=== PATIENT | female | born 1950 | race Caucasian/White ===

== ENCOUNTER → 2016-12-27 | Outpatient (CLI) | payer MEDICARE ==
[2014-07-11 09:09] VITALS: BP 95/48
[~2016-12-27] MED LIST: ASPI81TA2 PO; CLOP75TA PO; DOCU-27 PO; IPRA3AMP IH; LISI2.5T PO; MONT10TA9 PO; PROAIR HFA8.5 GM IH; SALM50DI IH; TIOT18CA IH
--- NOTE | 2016-12-27 14:09 | RAD ---
EXAM: Chest, 2 views. HISTORY: Shortness of breath. COMPARISON: 07/09/2014. FINDINGS: Frontal and lateral views of the chest are obtained. There is no infiltrate, effusion or pneumothorax. There is hyperinflation likely due to emphysema. There are few calcified granulomas. There are nodular opacities overlying the bilateral upper lobes. The heart is normal in size. IMPRESSION: 1. No acute pulmonary finding. 2. Hyperinflation suggesting emphysema. 3. Nodular opacities overlying the bilateral upper lobes, likely corresponding with opacities on the CT dated 11/06/2015. The nodular opacity within the left lower lobe on the prior CT is not well seen radiographically. CT follow-up may be performed to better assess for interval change.
== END | disposition home or self-care (01) ==
LOC: RAD 13:28
PROVIDERS: ATTEND Internal Medicine Critical Care Medicine
DX: R05 Cough (principal); R06.02 Shortness of breath; R06.2 Wheezing
CPT/HCPCS: 71020

== ENCOUNTER → 2017-02-17 | Outpatient (CLI) | payer BC ==
[2014-07-11 09:09] VITALS: BP 95/48
--- NOTE | 2017-02-17 15:09 | RAD ---
Examination: CT chest without contrast History: History of follow-up lung nodule Comparison: 11/06/2015. Technique: Axial CT images of the chest were performed without contrast. Coronal and sagittal reformats are performed PQRS Compliance Statement: One or more of the following individualized dose reduction techniques were utilized for this examination: 1. Automated exposure control 2. Adjustment of the mA and/or kV according to patient size 3. Use of iterative reconstruction technique Findings: The central airways are patent. The ascending aorta measures 3.6 cm in transverse dimension and 3.5 cm in AP dimension. Coronary artery calcifications identified. The heart size grossly appears unremarkable. No radiologically significant mediastinal lymphadenopathy identified. The previously visualized left apical nodule is again identified and appears somewhat less irregular compared to prior exam now measuring 9.3 mm compared to prior exam where it measured 1 cm. There is a small nodule identified in the right upper lobe of the lung measuring 4 mm slightly less prominent compared to prior exam. The left lower lobe pulmonary nodule measuring 1 cm is similar to prior exam. Small subpleural nodules identified in the right upper lobe measuring 3 mm similar to prior exam. Smaller 3 mm pulmonary nodule is identified in the right lobe, right lower lobe are similar to prior exam. No evidence of pleural effusion identified. Diffuse bilateral emphysematous changes identified in the lungs. There is a small new nodule identified in the left lower lobe lung measuring 3.5 mm, best visualized on series 2 image #32. The visualized noncontrasted liver, spleen, adrenals grossly appears unremarkable. The pancreas grossly appears unremarkable. Mild degenerative changes identified in the thoracic spine. Mild aortic atherosclerosis. Impression: 1. Bilateral lung nodules are mostly similar to prior exam except for a new small 3.5 mm nodule identified in the left lower lobe of the lung. Follow-up per Fleischner Society guidelines. 2. Emphysematous changes identified in the bilateral lungs.
== END | disposition home or self-care (01) ==
LOC: CT 11:45
PROVIDERS: ATTEND Internal Medicine Critical Care Medicine
DX: M47.894 Other spondylosis, thoracic region (principal); J43.8 Other emphysema; R91.1 Solitary pulmonary nodule; I70.0 Atherosclerosis of aorta
CPT/HCPCS: 71250

== ENCOUNTER → 2017-09-08 | Outpatient (CLI) | payer BC ==
[2017-07-13 15:00] VITALS: BP 133/74
[~2017-09-08] MED LIST changes: +ASPI-630 PO; -ASPI81TA2 PO; +BENZ-8 PO; +CONTRAST GIVEN MC PRN; +DOCU-109 PO; -DOCU-27 PO; +DOXY100C2 PO; +FAMO20TA5 PO; +FLUT100D IH; +GUAI600T47 PO; +IOHEXOL 300 MG/ML 100ML VIAL. IV ONE; +PRED-220 PO
--- NOTE | 2017-09-08 09:37 | RAD ---
Examination: CT angiogram of the chest. History: History of chest pain, shortness of breath Comparison: 02/17/2017 Technique: Axial CT angiographic images were performed with IV contrast. Coronal and sagittal 3-D MIP reformats are performed. PQRS Compliance Statement: One or more of the following individualized dose reduction techniques were utilized for this examination: 1. Automated exposure control 2. Adjustment of the mA and/or kV according to patient size 3. Use of iterative reconstruction technique acute Findings: The central airways are patent. Moderate aortic atherosclerosis. Moderate coronary artery calcifications. The heart size grossly appears unremarkable. There is no evidence of filling defect identified in the main pulmonary artery trunk and right and left main pulmonary arteries and the visualized lobar, segmental branches of the pulmonary arteries. A 1.6 cm right hilar lymph node is identified. There is a left apical nodule measuring 9.5 mm grossly similar to prior exam. A small nodule identified in the right upper lobe of lung measuring 4 mm is similar to prior exam. A left lower lobe pulmonary nodule measuring 1 cm is again noted. Small subpleural nodules identified in the right upper lobe and in the right lower lobe measuring 3 mm grossly similar to prior exam. Diffuse bilateral emphysematous is identified in the lungs. The visualized liver, spleen, adrenals grossly appears unremarkable. Impression: 1. No evidence of pulmonary embolus. 2. Bilateral pulmonary nodules grossly similar to prior exam. 3. Diffuse bilateral lung emphysematous changes. 4. Coronary artery calcifications.
== END | disposition home or self-care (01) ==
LOC: CT 08:16
PROVIDERS: ATTEND Internal Medicine Critical Care Medicine
DX: I25.10 Atherosclerotic heart disease of native coronary artery without angina pectoris (principal); J44.9 Chronic obstructive pulmonary disease, unspecified; I10 Essential (primary) hypertension; Z87.891 Personal history of nicotine dependence
CPT/HCPCS: 71275; Q9967

== ENCOUNTER 2017-10-13 18:14 | Inpatient (IN) | payer BC ==
[2017-10-13 18:53] LABS: ADD MAN DIFF? NO
[2017-10-13] MEDS: NITROGLYCERIN OINT 1 GM PACKET. TP (18:54)
[2017-10-13 18:56] LABS: BASO # 0.1 x10^3/uL (0.0-0.2); BASO % 1 % (0-3); EOS # 0.2 x10^3/uL (0.0-0.7); EOS % 2 % (0-3); LYMPH # 2.2 x10^3/uL (1.0-4.8); LYMPH % 20 % (24-48); MEAN CORPUSCULAR HEMOGLOBIN 31 pg (25-35); MEAN CORPUSCULAR HGB CONC 33 g/dL (31-37); MEAN CORPUSCULAR VOLUME 93 fL (79-100); MONO # 0.9 x10^3/uL (0.0-1.1); MONO % 8 % (0-9); NEUT # 7.5 x10^3uL (1.8-7.7); NEUT % 68 % (31-73); PLATELET COUNT 337 x10^3/uL (140-400); RED BLOOD COUNT 4.53 x10^6/uL (3.50-5.40)
[2017-10-13 19:06] LABS: ANION GAP 10 (6-14); BLOOD UREA NITROGEN 17 mg/dL (7-20); BUN/CREATININE RATIO 24 (6-20); CALCIUM 9.5 mg/dL (8.5-10.1); CARBON DIOXIDE 26 mmol/L (21-32); CHLORIDE 103 mmol/L (98-107); CREATININE 0.7 mg/dL (0.6-1.0); GLUCOSE 124 mg/dL (70-99); POTASSIUM 3.8 mmol/L (3.5-5.1); SODIUM 139 mmol/L (136-145)
[2017-10-13 19:11] LABS: ALBUMIN 3.6 g/dL (3.4-5.0); ALBUMIN/GLOBULIN RATIO 1.2 (1.0-1.7); ALK PHOS 113 U/L (46-116); ALT (SGPT) 14 U/L (14-59); AST (SGOT) 9 U/L (15-37); TOTAL BILIRUBIN 0.3 mg/dL (0.2-1.0); TOTAL PROTEIN 6.5 g/dL (6.4-8.2)
[2017-10-13 19:14] LABS: TROPONINI < 0.017 ng/mL (0.000-0.055)
[2017-10-13] MEDS ORDERED: MORPHINE SULFATE 2 MG/ML DISP.SYRIN. IV (19:30)
[2017-10-13] MEDS ORDERED: ONDANSETRON PF 4 MG/2 ML VIAL. IV (19:30)
[2017-10-13] MEDS: IV NORMAL SALINE 1000ML BAG 1,000 ML IV (19:38)
[2017-10-13] MEDS ORDERED: ALBUTEROL SULFATE 2.5 MG/3 ML NEBU. NEB (21:30)
[2017-10-13] MEDS: MONTELUKAST SODIUM 10 MG TABLET. PO (21:42)
[2017-10-13] MEDS: TEMAZEPAM 15 MG CAPSULE PO (21:42)
[2017-10-13] MEDS: LISINOPRIL 2.5 MG TABLET PO (21:42)
[2017-10-13] MEDS: IPRATRPIUM/ALBUTEROL 0.5/2.5MG 3 ML NEBU. IH (21:51)
[2017-10-13] MEDS: BUDESONIDE 0.5 MG/2 ML NEBU. NEB (21:51)
[2017-10-14 02:49] LABS: TROPONINI < 0.017 ng/mL (0.000-0.055)
[2017-10-14] MEDS: IPRATRPIUM/ALBUTEROL 0.5/2.5MG 3 ML NEBU. IH ×3 (07:21→19:49)
[2017-10-14] MEDS: BUDESONIDE 0.5 MG/2 ML NEBU. NEB ×2 (07:21→19:49)
[2017-10-14 08:54] LABS: TROPONINI < 0.017 ng/mL (0.000-0.055)
[2017-10-14] MEDS ORDERED: NON FORMULARY ITEM (Salmeterol Xinafoate (Serevent Diskus) 50 MCG) IH (09:00)
[2017-10-14] MEDS: ASPIRIN CHEWABLE 81 MG TABLET. PO (09:13)
[2017-10-14] MEDS: LISINOPRIL 2.5 MG TABLET PO (20:41)
[2017-10-14] MEDS: MONTELUKAST SODIUM 10 MG TABLET. PO (20:41)
[2017-10-14] MEDS: TEMAZEPAM 15 MG CAPSULE PO (20:41)
[2017-10-15] MEDS: BUDESONIDE 0.5 MG/2 ML NEBU. NEB ×2 (07:28→19:18)
[2017-10-15] MEDS: IPRATRPIUM/ALBUTEROL 0.5/2.5MG 3 ML NEBU. IH ×3 (07:28→19:18)
[2017-10-15] MEDS: ASPIRIN CHEWABLE 81 MG TABLET. PO (08:32)
[2017-10-15] MEDS: MONTELUKAST SODIUM 10 MG TABLET. PO (20:34)
[2017-10-15] MEDS: TEMAZEPAM 15 MG CAPSULE PO (20:34)
[2017-10-15] MEDS: LISINOPRIL 2.5 MG TABLET PO (20:34)
[2017-10-16 06:46] LABS: CHOLESTEROL 211 mg/dL (0-200); HDLC 54 mg/dL (40-60); LDLC 131 mg/dL (0-100); NON-HDL CHOLESTEROL 157 mg/dL (0-129); TRIGLYCERIDES 131 mg/dL (0-150); VLDLC 26 mg/dL (0-40)
[2017-10-16 06:48] LABS: CHOLESTEROL/HDL RATIO 3.9
[2017-10-16] MEDS: IPRATRPIUM/ALBUTEROL 0.5/2.5MG 3 ML NEBU. IH ×3 (07:51→19:14)
[2017-10-16] MEDS: BUDESONIDE 0.5 MG/2 ML NEBU. NEB ×2 (07:51→19:14)
[2017-10-16] MEDS: ASPIRIN CHEWABLE 81 MG TABLET. PO (07:59)
[2017-10-16] MEDS ORDERED: LIDOCAINE 2% 20 ML VIAL. (11:36)
[2017-10-16] MEDS ORDERED: fentaNYL PF VIAL 100 MCG/2 ML VIAL (11:58)
[2017-10-16] MEDS ORDERED: MIDAZOLAM HCL/PF 2 MG/2 ML VIAL. (11:59)
[2017-10-16] MEDS ORDERED: IODIXANOL 320 MG/ML 100 ML VIAL. (12:08)
[2017-10-16] MEDS: IODIXANOL 320 MG/ML 100 ML VIAL. IART (12:15)
[2017-10-16] MEDS: fentaNYL PF VIAL 100 MCG/2 ML VIAL IV (12:15)
[2017-10-16] MEDS: MIDAZOLAM HCL/PF 2 MG/2 ML VIAL. IV (12:44)
[2017-10-16] MEDS: LIDOCAINE 2% 20 ML VIAL. IJ (12:45)
[2017-10-16] MEDS ORDERED: ONDANSETRON PF 4 MG/2 ML VIAL. (13:09)
[2017-10-16] MEDS: ONDANSETRON PF 4 MG/2 ML VIAL. IV (13:17)
[2017-10-16] MEDS: HYDROcodone/APAP 5/325MG 1 TAB TABLET PO (19:06)
[2017-10-16] MEDS: TEMAZEPAM 15 MG CAPSULE PO (20:30)
[2017-10-16] MEDS: MONTELUKAST SODIUM 10 MG TABLET. PO (20:30)
[2017-10-16] MEDS: LISINOPRIL 2.5 MG TABLET PO (20:30)
[2017-10-17] MEDS: HYDROcodone/APAP 5/325MG 1 TAB TABLET PO ×2 (05:29→23:55)
[2017-10-17] MEDS: BUDESONIDE 0.5 MG/2 ML NEBU. NEB ×2 (07:57→20:13)
[2017-10-17] MEDS: IPRATRPIUM/ALBUTEROL 0.5/2.5MG 3 ML NEBU. IH ×3 (07:58→20:13)
[2017-10-17] MEDS ORDERED: CONTRAST GIVEN MC (08:00)
[2017-10-17] MEDS: IOHEXOL 300 MG/ML 100ML VIAL. IV (08:33)
[2017-10-17] MEDS: ASPIRIN CHEWABLE 81 MG TABLET. PO (08:43)
[2017-10-17] MEDS: TEMAZEPAM 15 MG CAPSULE PO (21:06)
[2017-10-17] MEDS: LISINOPRIL 2.5 MG TABLET PO (21:07)
[2017-10-17] MEDS: MONTELUKAST SODIUM 10 MG TABLET. PO (21:07)
[2017-10-18] MEDS: BUDESONIDE 0.5 MG/2 ML NEBU. NEB (07:26)
[2017-10-18] MEDS: IPRATRPIUM/ALBUTEROL 0.5/2.5MG 3 ML NEBU. IH ×2 (07:26→12:50)
[2017-10-18] MEDS: ASPIRIN CHEWABLE 81 MG TABLET. PO (08:25)
== END 2017-10-18 14:09 | disposition home or self-care (01) | DRG 286 ==
LOC: ER 18:14 → 2 NORTH 19:22
PROC: 4A023N7 Measurement of Cardiac Sampling and Pressure, Left Heart, Percutaneous Approach (ICD-10-PCS; principal; 2017-10-16)
PROC: B2111ZZ Fluoroscopy of Multiple Coronary Arteries using Low Osmolar Contrast (ICD-10-PCS; 2017-10-16)
PROC: B2151ZZ Fluoroscopy of Left Heart using Low Osmolar Contrast (ICD-10-PCS; 2017-10-16)
PROC: B4101ZZ Fluoroscopy of Abdominal Aorta using Low Osmolar Contrast (ICD-10-PCS; 2017-10-16)
DX: I25.119 Atherosclerotic heart disease of native coronary artery with unspecified angina pectoris (principal); I71.02 Dissection of abdominal aorta; K21.9 Gastro-esophageal reflux disease without esophagitis; J44.9 Chronic obstructive pulmonary disease, unspecified; F32.9 Major depressive disorder, single episode, unspecified; I10 Essential (primary) hypertension; I70.8 Atherosclerosis of other arteries; M54.9 Dorsalgia, unspecified; Z87.11 Personal history of peptic ulcer disease; M19.90 Unspecified osteoarthritis, unspecified site; Z90.710 Acquired absence of both cervix and uterus; Z82.49 Family history of ischemic heart disease and other diseases of the circulatory system; Z88.6 Allergy status to analgesic agent; I25.2 Old myocardial infarction; Z87.891 Personal history of nicotine dependence; Z95.5 Presence of coronary angioplasty implant and graft
CPT/HCPCS: 36415; 71045; 71250; 74174; 75625; 80053; 80061; 84484; 85025; 93005; 93458; 93880; 94640; 94760; 99151; 99153; 99285; 99285-25; C1769; C1892; J1644; J2250; J2405; J3010; J7030; J7620; J7626; Q9967

== ENCOUNTER → 2018-07-20 | Outpatient (CLI) | payer BC ==
[2017-10-18 11:00] VITALS: BP 98/55
[~2018-07-20] MED LIST changes: -CONTRAST GIVEN MC PRN; -IOHEXOL 300 MG/ML 100ML VIAL. IV ONE; -IPRA3AMP IH; +IPRA3AMP29 IH
--- NOTE | 2018-07-20 10:18 | RAD ---
CT of the chest without contrast compared to similar study dated October 18, 2017 for history of lung nodule. TECHNIQUE: Contiguous helical 5 mm axial images are obtained from the thoracic inlet to the base of the diaphragm. Sagittal and coronal reformations are evaluated. FINDINGS: Severe emphysematous changes are redemonstrated. There is calcified granuloma in the left upper lobe anteriorly. Several additional small pulmonary nodules or distributed throughout both lungs, the largest which is in the left upper lobe posteriorly seen best on axial image #13, measuring 9 mm in largest diameter. This nodule has somewhat indistinct margins but is unchanged from the prior study. There is a 4 mm nodule in the medial aspect of the left upper lobe seen on axial image #20 which is new as is a small 4 mm nodule seen in the anterior aspect of the left upper lobe on axial image #24. There is a 5 mm nodule in the superior segment of the left lower lobe on axial image #24 which is unchanged from prior study. A small 4 mm nodule seen on axial image #36 in the lateral aspect of the left lower lobe is also unchanged. 5 mm irregular nodule in the right upper lobe on axial image #17 is also stable, as is a 4 mm nodule peripherally on axial image 124, another on axial image #32, and another on axial image #33, and yet another smaller nodule on axial image #34. Within the right lower lobe, there are 3 mm nodules within the superior portion on axial images 36 and 37 which are stable, as well as image 52. No new nodules on the right. Central airways are patent. There is a morphologically normal-appearing precarinal lymph node measuring 1.5 x 0.7 cm which is unchanged. No suspicious mediastinal, hilar, or axillary lymphadenopathy is seen. Visualized upper abdominal organs are limited by lack of IV contrast, however no gross abnormal bodies are identified. Moderate diffuse atherosclerosis is present. This results in moderate to severe coronary atherosclerosis. No suspicious osteoblastic or osteolytic bone lesions are identified. IMPRESSION: 1. Multiple small bilateral pulmonary nodules, all of which are stable. There are 2 small 4 mm nodules seen in the left upper lobe, one on axial image #20 and one on axial image #24 which were not seen on the prior study. These may be new, or perhaps are small enough they were not adequately resolved on the prior study. Continued attention to these nodules on follow-up imaging is recommended. 2. Extensive bilateral emphysema. 3. Moderate to severe artery calcifications. Electronically signed by: Carroll Oates MD (07/20/2018 10:15 AM) [facility]
== END | disposition home or self-care (01) ==
LOC: CT 08:32
PROVIDERS: ATTEND Internal Medicine Critical Care Medicine
DX: J43.8 Other emphysema (principal); I25.10 Atherosclerotic heart disease of native coronary artery without angina pectoris; J84.10 Pulmonary fibrosis, unspecified; R91.8 Other nonspecific abnormal finding of lung field
CPT/HCPCS: 71250

== ENCOUNTER → 2019-01-07 | Outpatient (CLI) | payer BC ==
[2017-10-18 11:00] VITALS: BP 98/55
[~2019-01-07] MED LIST changes: +ALBU2.5V8 IH; +AMOX1TAB58 PO; +BUDE180A IH; +GUAI-108 PO; +GUAI120L35 PO; +OXYC1TAB15 PO; -PROAIR HFA8.5 GM IH
--- NOTE | 2019-01-07 13:24 | RAD ---
CT CHEST WO CONTRAST Indication: Lung nodule, asthma, smoker, COPD Technique: Noncontrast CT imaging was performed of the chest, multiplanar reconstruction images submitted. One or more of the following individualized dose reduction techniques were utilized for this examination: 1. Automated exposure control 2. Adjustment of the mA and/or kV according to patient size 3. Use of iterative reconstruction technique. Comparison: Exams dating back to as November 06 2015, most recent exam 07/20/2018 Findings: There is again severe emphysema bilaterally. There is new focus of somewhat nodular appearing density of the lingula about 1.7 cm transverse although this could be component of atelectasis or more focal infiltrate, best seen axial image 37 series 2. There are other bilateral pulmonary nodules. One of the dominant left upper lobe nodules near the apex axial image 10 about 0.88 cm is unchanged. Other similar nodules include superior left lower lobe nodule about 0.4 cm axial images 22, 0.3 cm image 33 left lower lobe, 0.2 cm left lower lobe nodule axial image 39, 0.4 cm right upper lobe nodule axial image 15, 0.4 cm right lower lobe nodule axial image 23, 0.2 cm right upper lobe axial image 23, 4 small right upper lobe nodules best seen sagittal images 94 and 95 with the largest about 0.4 cm. There is coronary calcification. There is large superior T11 Schmorl's node, present on more recent exam. There are a couple of small left renal calculi about 0.3 cm. IMPRESSION: 1. There is a new focus of somewhat nodular appearing density of the lingula although this could be due to atelectasis or more focal infiltrate for which short-term 3 month follow-up imaging is recommended. There are other small pulmonary nodules bilaterally as seen previously. 2. There is again severe emphysema. 3. There is coronary calcification. 4. There are a couple of small nonobstructive left renal calculi, kidneys not fully evaluated. Electronically signed by: Bentley Lawrence MD (01/07/2019 1:21 PM) [place] [id number]
== END | disposition home or self-care (01) ==
LOC: CT 15:51
PROVIDERS: ATTEND Internal Medicine Critical Care Medicine
DX: R91.8 Other nonspecific abnormal finding of lung field (principal); J43.9 Emphysema, unspecified; I25.10 Atherosclerotic heart disease of native coronary artery without angina pectoris; N20.0 Calculus of kidney
CPT/HCPCS: 71250

== ENCOUNTER → 2019-04-23 | Outpatient (CLI) | payer BC ==
[2019-03-11 08:35] VITALS: BP 178/68
[~2019-04-23] MED LIST changes: +CONTRAST GIVEN. MC PRN; +IOHEXOL 350 MG/ML 100 ML VIAL. IV ONE; +MONT10TA49 PO; -MONT10TA9 PO
[2019-04-23 09:44] LABS: CREATININE 0.8 mg/dL (0.6-1.0); GFR 70.9
--- NOTE | 2019-04-23 11:27 | RAD ---
Examination: CT ANGIOGRAPHY ABD AND PELVIS History: Abdominal aortic aneurysm and dissection Comparison/Correlation: 10/17/2017 CTA abdomen and pelvis Findings: Axial images of the abdomen and pelvis were obtained prior to and following IV contrast according to arteriography protocol. Sagittal and coronal reformatted images were provided. Volume rendered and MIP images provided. Visualized lung bases are clear. Emphysematous involvement of the lung bases. Minimal right costophrenic sulcus atelectasis suggested. Minimal lingular atelectasis. Right coronary arterial calcification noted. Small hiatal hernia. Liver, spleen, pancreas, adrenal glands, kidneys, and gallbladder fossa are unremarkable. Left adrenal gland nodularity is unchanged. Celiac arterial stenosis of less than 50% is evident. Superior mesenteric artery is patent with desiccation at its origin. Greater than 50% stenosis involving origin of the inferior mesenteric artery noted. There are 2 right main renal arteries with patent origins noted. There are 2 left main renal arteries with no significant stenosis suggested. Infrarenal abdominal aortic aneurysm is present measuring up to 3.2 cm longitudinal diameter of up to 3 cm transverse. Partial thrombosis of the aneurysm is noted. Calcific involvement of the abdominal aorta is noted. Dissection involving the very distal bifurcation right common iliac artery which extends into the very proximal right common iliac artery is present. Opacification of true and false lumens noted. Atheromatous calcific involvement of the iliac arteries Diverticulosis of the colon is present. No obstruction or extraluminal gas. No ascites or pelvic free fluid. No acute or suspicious bony process. Facet joint degenerative changes noted. Hysterectomy noted. Impression: Minimal distal common iliac artery dissection which extends into the very proximal right common iliac artery. No significant luminal narrowing. Decreased thrombosis of the right common iliac artery is notable in the interval. Previously described distal abdominal aortic aneurysm dissection is not currently seen. Previously described right costophrenic sulcus nodule is no longer evident. There is minimal residual atelectasis at this site. PQRS Compliance Statement: One or more of the following individualized dose reduction techniques were utilized for this examination: 1. Automated exposure control 2. Adjustment of the mA and/or kV according to patient size 3. Use of iterative reconstruction technique Electronically signed by: Bob Peacock MD (04/23/2019 11:24 AM) [id number]
--- NOTE | 2019-04-23 11:34 | RAD ---
MR#: [id number] Date of Study: 04/23/2019 Ordering Physician: TRUPTI TRIMBLE, Referring Physician: TRUPTI TRIMBLE, Tech: KIMMIE Salvador, RDMS, RVT APPROVED REPORT Patient Location: OUT-PATIENT Laterality:Bilateral Indications AORTIC DISSECTION, PVD, HTN, FORMER SMOKER, HX OF PR Doppler Spectral Velocity Analysis Right Left pCCA 65/11 cm/spCCA 67/15 cm/s mCCA 58/15 cm/smCCA 44/11 cm/s dCCA 74/20 cm/sdCCA 54/14 cm/s ECA 129/ cm/sECA 70/ cm/s pICA 73/22 cm/spICA 50/15 cm/s Yas 96/27 cm/smICA 83/24 cm/s dICA 129/26 cm/sdICA 73/23 cm/s Vert. 77/ cm/sVert. 62/ cm/s ICA/CCA 1.74ICA/CCA 1.24 Findings Mild to moderate bilateral diffuse plaque noted in the cord and vasculature. On the right side velocities are consistent with a moderate stenosis approximately 50-69% stenosis by velocity criteria in the distal internal carotid artery and the external carotid artery. Normal vertebral velocities bilaterally. No significant left-sided carotid occlusive disease is noted . Normal ICA to CCA ratios bilaterally. Critical Notification Critical Value: No <Conclusion> 1. Moderate right-sided disease by velocity criteria without any critical stenosis noted. Signed by : Trupti Trimble, Electronically Approved : 04/23/2019 11:34:10
--- NOTE | 2019-04-23 12:14 | CARD ---
MR#: [id number] Date of Study: 04/23/2019 Ordering Physician: TRUPTI TRIMBLE, Referring Physician: TRUPTI TRIMBLE, Tech: Ratna Baxter APPROVED REPORT EXAM: Two-dimensional and M-mode echocardiogram with Doppler and color Doppler. Other Information Quality : AverageHR: 52bpm INDICATION COPD CAD RISK FACTORS Hypertension 2D DIMENSIONS RVDd3.4 (2.9-3.5cm)Left Atrium(2D)2.9 (1.6-4.0cm) IVSd1.1 (0.7-1.1cm)Aortic Root(2D)3.1 (2.0-3.7cm) LVDd4.3 (3.9-5.9cm)LVOT Diameter2.2 (1.8-2.4cm) PWd1.0 (0.7-1.1cm)LVDs2.2 (2.5-4.0cm) FS (%) 47.9 %SV65.1 ml Aortic Valve AoV Peak Audi.136.8cm/sAoV VTI33.9cm AO Peak GR.7.5mmHgLVOT Peak Audi.119.6cm/s AO Mean GR.4mmHgAVA (VMAX)3.26cm2 Mitral Valve MV E Jsdxuefs77.9cm/sMV DECEL NVPD160lc MV A Prqoxrkk032.1cm/sE/A Ratio0.8 Pulmonary Valve PV Peak Lcpuekhd24.1cm/s Tricuspid Valve TR P. Oubbvtbs594ku/sRAP BRQPQBSW4qzRw TR Peak Gr.04xiMzUWMO15syHr Pulmonary Vein S1 Slvsoqwe24.6cm/sD2 Wuwfdzuf96.3cm/s PVa scebgzff65vytr LEFT VENTRICLE The left ventricle is normal size. There is borderline concentric left ventricular hypertrophy. The l eft ventricular systolic function is normal and the ejection fraction is within normal range. The Eje ction Fraction is 55-60%. There is normal LV segmental wall motion. Transmitral Doppler flow pattern is Grade I-abnormal relaxation pattern. RIGHT VENTRICLE The right ventricle is normal size. There is normal right ventricular wall thickness. The right ventr icular systolic function is normal. ATRIA The left atrium size is normal. The right atrium size is normal. The interatrial septum is intact wit h no evidence for an atrial septal defect or patent foramen ovale as noted on 2-D or Doppler imaging. AORTIC VALVE The aortic valve is normal in structure and function. Doppler and Color Flow revealed no significant aortic regurgitation. There is no significant aortic valvular stenosis. MITRAL VALVE The mitral valve is normal in structure and function. There is no evidence of mitral valve prolapse. There is no mitral valve stenosis. Doppler and Color Flow revealed no mitral valve regurgitation note d. TRICUSPID VALVE The tricuspid valve is normal in structure and function. Doppler and Color Flow revealed trace tricus pid valve regurgitation with an estimated PAP of 28 mmHg. There is no tricuspid valve stenosis. PULMONIC VALVE The pulmonic valve is not well visualized. Doppler and Color Flow revealed no pulmonic valvular regur gitation. GREAT VESSELS The aortic root is normal in size. The IVC is normal in size and collapses >50% with inspiration. PERICARDIAL EFFUSION There is no evidence of significant pericardial effusion. Critical Notification Critical Value: No <Conclusion> The left ventricle is normal size. The left ventricular systolic function is normal and the ejection fraction is within normal range. The Ejection Fraction is 55-60%. There is borderline concentric left ventricular hypertrophy. There is no significant aortic valvular stenosis. Doppler and Color Flow revealed no significant aortic regurgitation. Doppler and Color Flow revealed no mitral valve regurgitation noted. Doppler and Color Flow revealed trace tricuspid valve regurgitation with an estimated PAP of 28 mmHg. Signed by : Shaheed Terrazas MD Electronically Approved : 04/23/2019 12:14:13
== END | disposition home or self-care (01) ==
LOC: US 09:20
PROVIDERS: ATTEND Internal Medicine Cardiovascular Disease
DX: I77.72 Dissection of iliac artery (principal); I71.02 Dissection of abdominal aorta; J43.9 Emphysema, unspecified; J98.11 Atelectasis; K44.9 Diaphragmatic hernia without obstruction or gangrene; I77.4 Celiac artery compression syndrome; I25.10 Atherosclerotic heart disease of native coronary artery without angina pectoris; I71.4 Abdominal aortic aneurysm, without rupture; I70.8 Atherosclerosis of other arteries; K57.30 Diverticulosis of large intestine without perforation or abscess without bleeding; I65.23 Occlusion and stenosis of bilateral carotid arteries; I51.7 Cardiomegaly; Z90.710 Acquired absence of both cervix and uterus
CPT/HCPCS: 36415; 74174; 82565; 93306; 93880; Q9967

== ENCOUNTER → 2019-04-26 | Outpatient (CLI) | payer BC ==
[2019-03-11 08:35] VITALS: BP 178/68
[~2019-04-26] MED LIST changes: -CONTRAST GIVEN. MC PRN; -IOHEXOL 350 MG/ML 100 ML VIAL. IV ONE; +REGADENOSON 0.4 MG/5 ML DISP.SYRIN. IV ONE
--- NOTE | 2019-04-26 14:04 | RAD ---
MR#: [id number] Date of Study: 04/26/2019 Ordering Physician: TRUPTI TRIMBLE, Referring Physician: GERALD SOLITARIO Tech: HELEN Van APPROVED REPORT Test Type: Pharmacological Stress Nurse/Tech: Kaylin Jo R.N. Test Indications: CAD Cardiac History: Hypertension, CAD, stents, emphysema, smoked for 50 years Medications: See Electronic Medical Record Medical History: See Electronic Medical Record Resting ECG: s. nader Resting Heart Rate: 56 bpm Resting Blood Pressure: 124/60mmHg Pretest Chest Pain: No chest pain Nurse/Tech Notes S1S2. lung sounds diminished vaughn Consent: The procedure was explained to the patient in lay terms. Informed consent was witnessed. Robert eout was entered into [employer]. History and Stress Test performed by Kaylin Jo R.N. Pharm. Details Pharmacologic stress testing was performed using 0.4mg per 5ml of regadenoson given intravenously ove r 7-10 seconds. Stress Symptoms Dyspnea POST EXERCISE Reason for Termination: Infusion complete Target HR: 127 Max HR: 84 bpm Max Blood Pressure: 136/58mmHg Blood Pressure response to exercise: Normal blood pressure response during stress. Chest Pain: No. Arrhythmia: No. ST Change: No. INTERPRETATION Stress EKG Conclusion: The resting EKG showed a sinus rhythm with non specific ST T wave changes. The stress EKG showed no significant changes from baseline. No EKG evidence of stress induced ischemia. Imaging Protocol IMAGE PROTOCOL: Rest Tc-99m/stress Tc-99m 1 day Rest: Stress: Viability: Radiopharm.Tc99m BmtfpmfvgXk52d Sestamibi Zczc23vZg 32.5mCi Duration 15min. 10min. Img Date 04/26/2019 04/26/2019 Inj-Img Sgri56wns. 60min. Rest Admin Site:IV - Left WristAdministrator:HELEN Van Stress Admin Site: IV - Left WristAdministrator: Hernan Solorzano, (R)(N) STRESS DATA End Diast. Vol.54.0mlAv. Heart Rate67.0bpm End Syst. Vol.3.0mlCO Index BSA0.0L/min Myocardial Hwte531.0gEject. Andibjgh52.0% Stress Rates Pk. Fill Rate3.24EDV/secLVtime Pk. Fill 133.71msec Pk. Empty Rate4.85ESV/secLVtime Pk. Pmsqi275.37msec 1/3 Pk. Fill1.89EDV/sec Stress Scores Regional WT0.00Summed WT0.00 Regional WM0.00Summed WM0.00 LV Perfusion The stress scans have no significant defects. The rest images have no significant defects. Nuclear imaging shows no reversible ischemia or infarct. Wall Motion Normal LV systolic function with an ejection fraction of > 70%. LV Perf. Quant 17 Seg. SSS0.00 17 Seg. SRS0.00 17 Seg. SDS0.00 Stress Defect Extent (% LAD)0.00Rest Defect Extent (% LAD)0.00Rev. Defect Extent (% LAD)0.00 Stress Defect Extent (% LCX) 0.00Rest Defect Extent (% LCX)0.00Rev. Defect Extent (% LCX)0.00 Stress Defect Extent (% RCA)0.00Rest Defect Extent (% RCA)0.00Rev. Defect Extent (% RCA)0.00 Stress Defect Extent (% ZAC)0.00Rest Defect Extent (% ZAC)0.00Rev. Defect Extent (% ZAC)0.00 Conclusion 1. No EKG evidence of stress induced ischemia. 2. Nuclear imaging shows no reversible ischemia or infarct. 3. Normal LV systolic function with an EF of > 70%. 4. Low risk Lexiscan nuclear stress test. Signed by : Shaheed Terrazas MD Electronically Approved : 04/26/2019 14:04:09
== END | disposition home or self-care (01) ==
LOC: NM 09:19
PROVIDERS: ATTEND Internal Medicine Cardiovascular Disease
DX: I25.10 Atherosclerotic heart disease of native coronary artery without angina pectoris (principal); J43.9 Emphysema, unspecified; I10 Essential (primary) hypertension; Z87.891 Personal history of nicotine dependence
CPT/HCPCS: 78452; 93017; A9500; J2785

== ENCOUNTER → 2019-09-13 | Outpatient (CLI) | payer BC ==
[2019-03-11 08:35] VITALS: BP 178/68
[~2019-09-13] MED LIST changes: -REGADENOSON 0.4 MG/5 ML DISP.SYRIN. IV ONE
--- NOTE | 2019-09-14 08:28 | RAD ---
CT chest without contrast. HISTORY: Lung nodule CT scan of the chest was done without contrast. Comparison is made with a study from March 08. Thyroid is homogeneous. There is no mediastinal adenopathy or pleural effusion. Visualized portions the liver and spleen are unremarkable. Adrenal glands are normal. There are changes of chronic obstructive pulmonary disease. Linear atelectasis noted in the lateral right lower lobe on the prior study has resolved. The lingular infiltrate has improved with residual linear scarring or atelectasis. There is minimal basilar posterior linear atelectasis on today's study. There are calcified granulomas in the left lower lobe. There are calcified granulomas in the left apex. IMPRESSION: 1. COPD. 2. Calcified granulomas. 3. No new infiltrates. 4. Improved right lower lobe and lingular infiltrates since the prior study. 5. No new pulmonary nodules noted. PQRS Compliance Statement: One or more of the following individualized dose reduction techniques were utilized for this examination: 1. Automated exposure control 2. Adjustment of the mA and/or kV according to patient size 3. Use of iterative reconstruction technique Electronically signed by: Haja Sarmiento MD (09/14/2019 8:25 AM) [facility]
== END ==
LOC: CT 11:05
PROVIDERS: ATTEND Internal Medicine Critical Care Medicine
DX: J98.11 Atelectasis (principal); J44.9 Chronic obstructive pulmonary disease, unspecified; J84.10 Pulmonary fibrosis, unspecified; I10 Essential (primary) hypertension; Z87.891 Personal history of nicotine dependence
CPT/HCPCS: 71250

== ENCOUNTER → 2019-09-20 | Outpatient (CLI) | payer BC ==
[2019-03-11 08:35] VITALS: BP 178/68
--- NOTE | 2019-09-20 09:25 | RAD ---
CHEST PA LATERAL Clinical indications: Chest pain and shortness of air COMPARISON: March 08, 2019. Findings: Hyperinflation is seen consistent with COPD. Emphysema seen within both upper lobes. No new lung infiltrate or pleural effusion or pulmonary edema or lung mass or pneumothorax is seen. The heart size, pulmonary vasculature, mediastinum and both miriam are unremarkable. The osseous structures appear intact. Impression: COPD. No acute radiographic abnormality is seen. Electronically signed by: Jaycob Muñoz MD (09/20/2019 9:22 AM) [facility]
--- NOTE | 2019-09-20 15:01 | RAD ---
V/Q LUNG SCAN CLINICAL INDICATIONS: Chest pain and shortness of breath. COMPARISON: No previous V/Q lung scan. Chest x-ray performed today. TECHNIQUE: After inhalation of 17.0 mCi of Xenon 133 gas, anterior and posterior planar images of the lung avilez were performed in the single breath and equilibrium and washout phases. After IV infusion of 5.5 mCi of technetium 99m MAA, multiplanar images of both lung avilez were performed. FINDINGS: There is retention of radiotracer activity of both lung avilez which may be seen with COPD on the ventilation portion of the study. On the perfusion portion of the study, there is bibasilar nonsegmental perfusion defects. There is decreased perfusion within the upper lobes bilaterally. These findings match the ventilatory findings and correspond to the chest x-ray abnormality of bullous emphysema within both upper lobes. Therefore, the probability for pulmonary embolism is low. IMPRESSION: Low probability for pulmonary embolism. Electronically signed by: Jaycob Muñoz MD (09/20/2019 2:58 PM) [facility]
== END | disposition home or self-care (01) ==
LOC: NM 08:45
PROVIDERS: ATTEND Internal Medicine Critical Care Medicine
DX: J44.9 Chronic obstructive pulmonary disease, unspecified (principal); Z79.01 Long term (current) use of anticoagulants
CPT/HCPCS: 71046; 78582; 96374; A9540; A9558

== ENCOUNTER → 2020-02-14 | Outpatient (CLI) | payer BC ==
[2019-03-11 08:35] VITALS: BP 178/68
--- NOTE | 2020-02-14 13:05 | RAD ---
CT the chest without IV contrast compared to similar examination dated September 13, 2019 for lung nodule. TECHNIQUE: Contiguous helical 1 mm axial images are obtained from the thoracic inlet to the base of diaphragm. Sagittal and coronal reformations are evaluated. FINDINGS: Multiple densely calcified granulomas are redemonstrated. A left upper lung on series #3 axial image #52 there is redemonstration of an soft tissue nodule measuring 8 mm which is stable. There is a new spiculated lung nodule in the left upper lobe peripherally on series #3 axial image #82, measuring 9 mm and highly suspicious for malignancy. A second new nodule with indistinct borders is seen in the medial aspect left lower lobe measuring 5 mm in diameter, and this is equivocal for malignancy. There is a new linear pleural parenchymal opacity in the anterior aspect the right upper lobe which has a nodular component with spiculated margins seen best on series 3 axial image #97. This could represent scarring or atelectasis, however infection and neoplasm should the previously seen irregular nodular density in the peripheral aspect of the right upper lobe has enlarged from 7 mm to 15 mm, and also spiculated margins and may represent enlarging malignancy or progressive focal infection. This is seen on series #3 axial image #105 Also be considered. There are patchy infiltrates in the lingula peripherally as well as in the lower lobes bilaterally which are new, and may represent areas of infectious pneumonitis. Aortic and coronary artery calcifications are again noted. Heart size within normal limits. No suspicious adenopathy is identified. Central airways are grossly unremarkable. Emphysema is again noted. There are calcified gravel was in the spleen. No morphologic abnormalities the visualized upper abdominal organs are identified. Old compression deformity of T11 is again noted. No suspicious osteoblastic or osteolytic bone lesions. IMPRESSION: 1. Several concerning findings on axial series #3, with a new 9 mm spicula nodule in the left upper lobe on axial image #82, and enlarging irregular and spiculated nodule in the right anterior lobe on axial image #105, and a new linear density in the anterior right upper lobe with a spiculated nodular component. All 3 of these could potentially reflect new malignancy in this high risk patient, with nodules at #82 being particularly suspicious. 2. Patchy infiltrates in the lingula and bilateral lower lobes concerning for infectious pneumonitis. 3. Numerous stable calcified granulomas 4. Extensive COPD, stable. 5. Old compression of T7. 6. Other chronic changes as described. PQRS Compliance Statement: One or more of the following individualized dose reduction techniques were utilized for this examination: 1. Automated exposure control 2. Adjustment of the mA and/or kV according to patient size 3. Use of iterative reconstruction technique Electronically signed by: Carroll Oates MD (02/14/2020 1:02 PM) [id number]
== END ==
LOC: CT 11:07
PROVIDERS: ATTEND Internal Medicine Critical Care Medicine
DX: R91.1 Solitary pulmonary nodule (principal); J43.9 Emphysema, unspecified
CPT/HCPCS: 71250

== ENCOUNTER → 2020-09-11 | Outpatient (CLI) | payer BC ==
[2019-03-11 08:35] VITALS: BP 178/68
--- NOTE | 2020-09-11 17:54 | RAD ---
INDICATION: Reason: LUNG NODULE / Spl. Instructions: / History: . COMPARISON: February 14, 2020 TECHNIQUE: Axial CT images obtained through the chest without contrast. One or more of the following individualized dose reduction techniques were utilized for this examinat ion: 1. Automated exposure control; 2. Adjustment of the mA and/or kV according to patient size; 3 . Use of iterative reconstruction technique. FINDINGS: Repeat demonstration of severe bilateral emphysematous changes to the lungs. On the prior examination there are multiple pulmonary nodules identified. This includes: Left upper lung nodule which appears mildly spiculated and appears similar to prior measuring approxi mately 7 mm, image 83. Right lung nodule anteriorly on image 116 which appears slightly decreased from prior exam measuring approximately 9 mm and previously measured up to about 10 mm. The region of nodular infiltrate within the right lung on the prior exam. Slightly decreased from sugey or with some areas of nodularity persisting but decreased linear component. There are some calcified granulomas seen. Within the right upper lung posteriorly there is a nodular opacity seen on the current exam which george ears more prominent than on prior measuring up to about 6 mm and the nodular component within adjacen t linear component. Ground glass opacity within the right middle lobe appears slightly increased from prior. There is regions of bronchiectasis. Mild opacity at the left lung base is again seen dependently and could be from atelectasis. Severe calcific atherosclerosis including of the coronary arteries. Degenerative changes throughout the spine. Splenic calcified granulomas. Scattered mildly prominent lymph nodes within the mediastinum. Ascending thoracic aorta measures up to about 38 mm. There is some mild compression deformities within the spine including L1, T11. Patchy osseous deminer alization. IMPRESSION: * Multiple bilateral pulmonary nodules are again seen with some of these appearing similar to prior one appearing more prominent and others slightly decreased. Continued follow-up could be obtained to ensure no growth given that infectious or inflammatory nodules as well as neoplastic causes remain wi thin the differential. * Severe emphysematous changes. * Degenerative changes throughout the spine as well as a couple of compression fractures including a t L1 which appears new when compared to prior CT from January 2020. Electronically signed by: Andrews Garcia MD (09/11/2020 5:52 PM) [id number]
== END ==
LOC: PETSC 08:59
PROVIDERS: ATTEND Internal Medicine Critical Care Medicine
DX: J43.8 Other emphysema (principal); J47.9 Bronchiectasis, uncomplicated; R91.1 Solitary pulmonary nodule; D73.89 Other diseases of spleen; M43.8X5 Other specified deforming dorsopathies, thoracolumbar region
CPT/HCPCS: 71250; 78815; A9552

== ENCOUNTER 2021-01-28 03:37 | Inpatient (IN) | payer BC ==
[~2021-01-28] VITALS: Ht 160 cm; Wt 66.6 kg
[~2021-01-28 03:37] MED LIST changes: -FLUT100D IH; +FLUT100D2 IH; -SALM50DI IH; +SALM50DI2 IH
[2021-01-28] MEDS ORDERED: cefTRIAXone IV Push 1 GM VIAL. IVP ONE (04:00)
[2021-01-28] MEDS ORDERED: IPRATRPIUM/ALBUTEROL 0.5/2.5MG 3 ML NEBU. ONE ×2 (04:04→11:43)
[2021-01-28 04:06] LABS: ISTAT BE VENOUS 11 mmol/L (0-3); ISTAT HCO3 VEN 34 mmol/L (24-28); ISTAT PCO2 VEN 43 mmHg (41-51); ISTAT PO2 VEN 50 mmHg (20-40); ISTAT SAT O2 VEN 88 %; ISTAT TCO2 VEN 35 mmol/L (21-32)
[2021-01-28] MEDS ORDERED: MORPHINE SULFATE 10 MG/ML VIAL. IV ONE (04:15)
[2021-01-28] MEDS ORDERED: IPRATRPIUM/ALBUTEROL 0.5/2.5MG 3 ML NEBU. NEB ONE (04:15)
--- NOTE | 2021-01-28 04:25 | ED.ADGEN ---
Past Medical History Past Medical History: Asthma, COPD, Hypertension, [place], Other Additional Past Medical Histor: EMPHEMSEMA Past Surgical History: Hysterectomy, Other Additional Past Surgical Histo: CARDIAC STENT, R WRIST SX Smoking Status: Former Smoker Alcohol Use: None Drug Use: None General Adult EDM: Chief Complaint: SHORTNESS OF BREATH HPI: HPI: Patient is a 70-year-old female past medical history of COPD on 4 L of oxygen at baseline who presents to the emergency room complaining of shortness of breath. Patient states that over the last 3 weeks she has had increasing shortness of breath. She states that her stomach has become increasingly distended. She has had this previously and states that she has taken Lasix before which is helped. She denies any history of congestive heart failure. She states that her shortness of breath got significantly worse this evening so she came to the emergency room. She states that she has had a productive cough. She did not know she was having fevers until she arrived in the emergency room. She states that she is bringing up yellow phlegm. She has had both of her Covid vaccines. She denies any chest pain. She has a diffuse pressure-like pain in her abdomen that she states is common when her belly gets distended. Review of Systems: Review of Systems: Complete ROS is negative unless otherwise documented in HPI Current Medications: Current Medications Medications (Trade) Dose Ordered Sig/Kenan Start Time Stop Time Status Last Admin Dose Admin Albuterol/ Ipratropium (Duoneb) 3 ml 1X ONCE 01/28/21 04:15 01/28/21 04:16 DC 01/28/21 04:17 3 ML Ceftriaxone Sodium (Rocephin) 1 gm 1X ONCE 01/28/21 04:00 01/28/21 04:01 DC 01/28/21 04:27 1 GM Morphine Sulfate (Morphine Sulfate) 5 mg 1X ONCE 01/28/21 04:15 01/28/21 04:16 DC 01/28/21 04:28 5 MG Sodium Chloride 500 ml @ 500 mls/hr 1X ONCE 01/28/21 04:45 01/28/21 05:44 DC 01/28/21 05:37 500 MLS/HR Allergies: Allergies: Allergies Coded Allergies Type Severity Reaction Last Updated Verified NSAIDS (Non-Steroidal Anti-Inflamma Allergy Intermediate ITCH, RASH 07/09/14 Yes amoxicillin Adverse Reaction Intermediate nausea, vomiting 01/28/21 Yes erythromycin base Adverse Reaction Intermediate nausea, vomiting 01/28/21 Yes Physical Exam: PE: General: Awake, alert, NAD. Well Nourished, well hydrated. Cooperative HEENT: Atraumatic, EOMI, PERRL, airway patent, moist oral mucosa Neck: Supple, trachea midline Respiratory: Decreased breath sounds bilaterally with diffuse crackles and minimal wheezing, increased work of breathing, mild tachypnea CV: Mild tachycardia, normal rhythm, no murmur, cap refill <2 GI: Soft, mild distention, nontender, no masses MSK: No obvious deformities Skin: Warm, dry, intact Neuro: A&O x3, speech NL, sensory and motor grossly intact, no focal deficits Psych: Normal affect, normal mood, not suicidal or homicidal Current Patient Data: Labs: Laboratory Tests Test 01/28/21 03:03 01/28/21 03:55 POC Venous pH 7.50 (7.32-7.42) H POC Venous pCO2 43 mmHg (41-51) POC Venous pO2 50 mmHg (20-40) H Venous Blood HCO3 34 mmol/L (24-28) H POC Venous O2 Saturation (Olga Lidia) 88 % POC FiO2 21.0 White Blood Count 25.8 x10^3/uL (4.0-11.0) H Red Blood Count 4.70 x10^6/uL (3.50-5.40) Hemoglobin 14.1 g/dL (12.0-15.5) Hematocrit 42.2 % (36.0-47.0) Mean Corpuscular Volume 90 fL (79-100) Mean Corpuscular Hemoglobin 30 pg (25-35) Mean Corpuscular Hemoglobin Concent 34 g/dL (31-37) Red Cell Distribution Width 13.5 % (11.5-14.5) Platelet Count 334 x10^3/uL (140-400) Neutrophils (%) (Auto) 84 % (31-73) H Lymphocytes (%) (Auto) 9 % (24-48) L Monocytes (%) (Auto) 6 % (0-9) Eosinophils (%) (Auto) 0 % (0-3) Basophils (%) (Auto) 0 % (0-3) Neutrophils # (Auto) 21.7 x10^3/uL (1.8-7.7) H Lymphocytes # (Auto) 2.4 x10^3/uL (1.0-4.8) Monocytes # (Auto) 1.6 x10^3/uL (0.0-1.1) H Eosinophils # (Auto) 0.0 x10^3/uL (0.0-0.7) Basophils # (Auto) 0.1 x10^3/uL (0.0-0.2) Segmented Neutrophils % 73 % (35-66) H Band Neutrophils % 3 % (0-9) Lymphocytes % 16 % (24-48) L Monocytes % 7 % (0-10) Eosinophils % 1 % (0-5) Platelet Estimate Adequate (ADEQUATE) Sodium Level 136 mmol/L (136-145) Potassium Level 3.2 mmol/L (3.5-5.1) L Chloride Level 98 mmol/L (98-107) Carbon Dioxide Level 31 mmol/L (21-32) Anion Gap 7 (6-14) Blood Urea Nitrogen 26 mg/dL (7-20) H Creatinine 0.9 mg/dL (0.6-1.0) Estimated GFR (Cockcroft-Gault) 61.5 BUN/Creatinine Ratio 29 (6-20) H Glucose Level 114 mg/dL (70-99) H Lactic Acid Level 1.8 mmol/L (0.4-2.0) Calcium Level 9.6 mg/dL (8.5-10.1) Total Bilirubin 0.5 mg/dL (0.2-1.0) Aspartate Amino Transferase (AST) 18 U/L (15-37) Alanine Aminotransferase (ALT) 27 U/L (14-59) Alkaline Phosphatase 140 U/L (46-116) H Troponin I Quantitative < 0.017 ng/mL (0.000-0.055) ML-Prh-R-Type Natriuretic Peptide 198 pg/mL (0-124) H Total Protein 7.3 g/dL (6.4-8.2) Albumin 4.0 g/dL (3.4-5.0) Albumin/Globulin Ratio 1.2 (1.0-1.7) Triglycerides Level 87 mg/dL (0-150) Cholesterol Level 253 mg/dL (0-200) H LDL Cholesterol, Calculated 136 mg/dL (0-100) H VLDL Cholesterol, Calculated 17 mg/dL (0-40) Non-HDL Cholesterol Calculated 153 mg/dL (0-129) H HDL Cholesterol 100 mg/dL (40-60) H Cholesterol/HDL Ratio 2.5 Laboratory Tests 01/28/21 03:55 Laboratory Tests 01/28/21 03:55 Vital Signs: Vital Signs Date Time Temp Pulse Resp B/P (MAP) Pulse Ox O2 Delivery O2 Flow Rate FiO2 01/28/21 04:44 103 22 148/65 (92) 96 Nasal Cannula 4.0 01/28/21 03:40 100.9 100.9 EKG: EKG: [] Heart Score: C/O Chest Pain: N/A Risk Factors: Risk Factors: DM, Current or recent (<one month) smoker, HTN, HLP, family history of CAD, obesity. Risk Scores: Score 0 - 3: 2.5% MACE over next 6 weeks - Discharge Home Score 4 - 6: 20.3% MACE over next 6 weeks - Admit for Clinical Observation Score 7 - 10: 72.7% MACE over next 6 weeks - Early Invasive Strategies Radiology/Procedures: Radiology/Procedures: [] Course & Med Decision Making: Course & Med Decision Making Pertinent Labs and Imaging studies reviewed. (See chart for details) Patient is a 70-year-old female past medical history of COPD who presents to the emergency room complaining of increased work of breathing and shortness of breath. Patient is on her 4 L satting 96%. She does have mild increased work of breathing and does have diffuse crackles on exam. Patient is febrile. This is concerning for possible pneumonia. Blood cultures, chest x-ray, CBC, BMP, lactic were ordered. Patient was given Rocephin. She does have some mild distention in her abdomen which she feels is causing her shortness of breath. She states she typically takes Lasix for this. Troponin and BNP were added. Patient was given morphine for pain. She was given a DuoNeb for shortness of breath. XR shows enlarging nodule and CT ordered. Patient to be admitted. Teresoon Disclaimer: Sarabjit Disclaimer: This electronic medical record was generated, in whole or in part, using a voice recognition dictation system. Departure Departure Impression: Primary Impression: COPD exacerbation Additional Impression: Sepsis Disposition: ADMITTED INPATIENT Condition: STABLE Referrals: CARLA MANCIA DO (PCP) Problem Qualifiers CK RANDOLPH MD Jan 28, 2021 04:25
[2021-01-28 04:26] LABS: BASO # 0.1 x10^3/uL (0.0-0.2); BASO % 0 % (0-3); EOS % 0 % (0-3); HEMATOCRIT 42.2 % (36.0-47.0); HEMOGLOBIN 14.1 g/dL (12.0-15.5); LYMPH # 2.4 x10^3/uL (1.0-4.8); LYMPH % 9 % (24-48); MEAN CORPUSCULAR HEMOGLOBIN 30 pg (25-35); MEAN CORPUSCULAR HGB CONC 34 g/dL (31-37); MEAN CORPUSCULAR VOLUME 90 fL (79-100); MONO # 1.6 x10^3/uL (0.0-1.1); MONO % 6 % (0-9); NEUT # 21.7 x10^3/uL (1.8-7.7); NEUT % 84 % (31-73); PLATELET COUNT 334 x10^3/uL (140-400); RED CELL DISTRIBUTION WIDTH 13.5 % (11.5-14.5); WHITE BLOOD COUNT 25.8 x10^3/uL (4.0-11.0)
--- NOTE | 2021-01-28 04:29 | RAD ---
Single view chest dated 01/28/2021. Comparison made to 09/11/2020. CLINICAL INDICATION: Shortness of breath. FINDINGS: Single upright portable exam performed. Heart and mediastinal contours are stable. Vague nodular dens ity in the right upper lobe measures about 8 mm maximum dimension versus 5 mm previously. There are p rominent linear markings in the lower lobes, stable. Lungs are hyperinflated. No consolidation or ple ural effusion. No pneumothorax. IMPRESSION: 1. No acute radiographic abnormality. 2. Findings consistent with COPD. 3. There is suspected interval enlargement of a pulmonary nodule in the right upper lobe. Neoplastic processes not excluded. Follow-up CT to better evaluate. Electronically signed by: Ulysses Goyal MD (01/28/2021 4:26 AM) DINA
[2021-01-28 04:42] LABS: ALBUMIN/GLOBULIN RATIO 1.2 (1.0-1.7); CALCIUM 9.6 mg/dL (8.5-10.1); CREATININE 0.9 mg/dL (0.6-1.0); GFR 61.5; POTASSIUM 3.2 mmol/L (3.5-5.1); TOTAL BILIRUBIN 0.5 mg/dL (0.2-1.0); TOTAL PROTEIN 7.3 g/dL (6.4-8.2)
[2021-01-28] MEDS ORDERED: IV NORMAL SALINE 500ML BAG 500 ML IV ONE (04:45)
[2021-01-28 05:23] LABS: % BANDS 3 % (0-9); % EOS 1 % (0-5); % LYMPHS 16 % (24-48); % MONOS 7 % (0-10); % SEGS 73 % (35-66); PLT ESTIMATE ADEQUATE (ADEQUATE)
--- NOTE | 2021-01-28 05:48 | RAD ---
CT chest without contrast dated 01/28/2021. Comparison made to 09/11/2020. CLINICAL INDICATION: Evaluate lung nodule. TECHNIQUE: Contiguous axial imaging the chest performed without the administration of intravenous contrast. FINDINGS: There is a noncalcified pulmonary nodule in the anterior right upper lobe measures 1.4 cm maximum dim ension versus 0.7 cm previously (image 22). There are 3 additional nodules in the anterior right uppe r lobe on images 19, 20 and 21 that are unchanged, largest of which measures about 6 mm. Small noncal cified nodule in the right upper lobe on image 13 measures 3 mm, stable. There is a subpleural nodule in the right upper lobe posteriorly on image 19 that measures 3 mm, stable. On the left, there is a somewhat vague nodule in the left upper lobe on image 11 that measures about 7 mm, stable. Additional nodular density in the left upper lobe on image 16 measures about 7 mm, new from prior study. There is a nodule in the superior segment left lower lobe 20 measures 4 mm, unchang ed. Nodule in the anterior left upper lobe on image 29 measures about 5 mm, unchanged. Central airways are patent. Moderate emphysema. There is diffuse bronchial wall thickening with patch y and linear opacities in the bilateral lower lobes, right middle lobe and lingula. No pleural effusi on. Heart size within normal limits. No pericardial effusion. Coronary artery calcifications. There are b orderline enlarged precarinal and subcarinal lymph nodes measuring up to 10 mm short axis. No axillar y or hilar adenopathy. Thyroid gland is unremarkable. Images of the upper abdomen are unremarkable. No significant bony abnormality. Multilevel spondylosis . IMPRESSION: 1. There is an enlarging pulmonary nodule in the right upper lobe that now measures up to 1.4 cm vers us 0.7 cm previously. Findings are suspicious for malignancy. PET CT could better evaluate. 2. Multiple additional noncalcified pulmonary nodules, the majority of which are stable. There is a s omewhat vague nodule in the left upper lobe that is new. Continued follow-up imaging to ensure stabil ity. 3. Emphysema with bibasilar scarring is bronchial wall thickening. 4. Coronary artery calcifications and mild ectasia of the ascending thoracic aorta. 5. Borderline enlarged mediastinal lymph nodes, nonspecific Electronically signed by: Ulysses Goyal MD (01/28/2021 5:45 AM) [facility]
--- NOTE | 2021-01-28 07:50 | NUR ---
Arrived to unit by cart from ER. Alert and Oriented x's 4. O2 at 4l per n/c which wears at home at all times. Gets SOB on exertion. Barky cough non-productive. Noted hernia bulges outward on coughing. No c/o pain at this time. Oriented to room and controls. Side rails up x's 2 with call light in reach.
[2021-01-28 08:00] VITALS: BP 156/58
--- NOTE | 2021-01-28 10:01 | PDOC1 ---
History and Physical Date of Admission Date of Admission DATE: 01/28/21 TIME: 09:57 Source Source: Chart review, Patient History of Present Illness History of Present Illness Ms. Bustos is a 70-year-old female past medical history of COPD on 4 L of oxygen at home, She came to the ER for abd distention and pain, worsenign over 3 weeks. She feels bloated and has pain in the afternoon and evenings most days, across the upper part of her abdomen, from right to left. Not acute pain after eating, no change in gas or belching, no nausea or vomitnig or change in stools. She also noted increasing shortness of breath, with cough that has now become pr oductive in the past 2 days. She denies any history of congestive heart failure, but has prior cardiac stent. she is on 4 liters oxygen now and feels like she is breathing her normal way, she follows , She has had both of her Covid vaccines. Past Medical History Cardiovascular: CAD, HTN Pulmonary: COPD GI: GERD, Peptic Ulcer disease Psych: Depression Musculoskeletal: Osteoarthritis Renal/: No pertinent hx Endocrine: No pertinent hx Past Surgical History Past Surgical History: Hysterectomy Family History Family History: Hypertension Social History Smoke: No ALCOHOL: none Drugs: None Current Medications Current Medications Current Medications Ceftriaxone Sodium (Rocephin) 1 gm 1X ONCE IVP Last administered on 01/28/21at 04:27; Start 01/28/21 at 04:00; Stop 01/28/21 at 04:01; Status DC Albuterol/ Ipratropium (Duoneb) 3 ml STK-MED ONCE .ROUTE ; Start 01/28/21 at 04:04; Stop 01/28/21 at 04:05; Status DC Morphine Sulfate (Morphine Sulfate) 5 mg 1X ONCE IV Last administered on 01/28/21at 04:28; Start 01/28/21 at 04:15; Stop 01/28/21 at 04:16; Status DC Albuterol/ Ipratropium (Duoneb) 3 ml 1X ONCE NEB Last administered on 01/28/21at 04:17; Start 01/28/21 at 04:15; Stop 01/28/21 at 04:16; Status DC Sodium Chloride 500 ml @ 500 mls/hr 1X ONCE IV Last administered on 01/28/21at 05:37; Start 01/28/21 at 04:45; Stop 01/28/21 at 05:44; Status DC Active Scripts Active Codeine-Guaifen 10-100 mg/5 ml (Guaifenesin/Codeine Phosphate) 120 Ml Liquid 120 Ml PO TID PRN PRN 7 Days Augmentin 500-125 Tablet (Amoxicillin/Potassium Clav) 1 Each Tablet 1 Tab PO BID Pulmicort Flexhaler (Budesonide) 180 Mcg Aer.pow.ba 2 Puff IH BID Mucinex Dm Er 600-30 Mg Tablet (Guaifenesin/Dextromethorphan) 1 Each Tab.er.12h 1 Tab PO BID MDD 1 Percocet 5-325 Mg Tablet (Oxycodone/Acetaminophen) 1 Each Tablet 1 Tab PO TID MDD 1 Reported Flovent 100MCG Diskus (Fluticasone Propionate) 100 Mcg Disk.w.dev 1 Puff IH BID Serevent Diskus (Salmeterol Xinafoate) 50 Mcg Disk.w.dev 50 Mcg IH BID Duoneb 0.5-3(2.5) Mg/3 Ml (Albuterol/Ipratropium) 3 Ml Ampul.neb 3 Ml IH TID Aspirin 81 Mg Tab.chew 1 Tab PO DAILY Lisinopril 2.5 Mg Tablet 1 Tab PO HS Montelukast Sodium Tablet (Montelukast Sodium) 10 Mg Tablet 10 Mg PO HS Proair Hfa Inhaler (Albuterol Sulfate) 8.5 Gm Hfa.aer.ad 2 Puff IH PRN Q4-6HRS PRN Allergies Allergies: Coded Allergies: NSAIDS (Non-Steroidal Anti-Inflamma (Verified Allergy, Intermediate, ITCH, RASH, 07/09/14) amoxicillin (Verified Adverse Reaction, Intermediate, nausea, vomiting, 01/28/21) erythromycin base (Verified Adverse Reaction, Intermediate, nausea, vomiting, 01/28/21) ROS General: No: Chills, Night Sweats, Fatigue, Malaise, Appetite, Other PSYCHOLOGICAL ROS: No: Anxiety, Behavioral Disorder, Concentration difficultie, Decreased libido, Depression, Disorientation, Hallucinations, Hostility, Irritablity, Memory difficulties, Mood Swings, Obsessive thoughts, Physical abuse, Sexual abuse, Sleep disturbances, Suicidal ideation, Other Eyes: No Blurry vision, No Decreased vision, No Double vision, No Dry eyes, No Excessive tearing, No Eye Pain, No Itchy Eyes, No Loss of vision, No Photophobia, No Scotomata, No Uses contacts, No Uses glasses, No Other HEENT: No: Heacaches, Visual Changes, Hearing change, Nasal congestion, Nasal discharge, Oral lesions, Sinus pain, Sore Throat, Epistaxis, Sneezing, Snoring, Tinnitus, Vertigo, Vocal changes, Other Respiratory: YES: Cough, Shortness of breath, SOB with excertion, Sputum Changes; No: Hemoptysis, Orthopnea, Pleuritic Pain, Stridor, Tachypnea, Wheezing, Other Gastrointestinal: Yes Nausea, Yes Abdominal Pain (distention), Yes Other Genitourinary: No Dysuria, No Frequency, No Incontinence, No Hematuria, No Retention, No Discharge, No Urgency, No Pain, No Flank Pain, No Other, No , No , No , No , No , No , No Musculoskeletal: Yes Joint Stiffness Neurological: No Behavorial Changes, No Bowel/Bladder ControlChng, No Confusion , No Dizziness, No Gait Disturbance, No Headaches, No Impaired Coord/balance, No Memory Loss, No Numbness/Tingling, No Seizures, No Speech Problems, No Tremors, No Visual Changes, No Weakness, No Other Skin: No Dry Skin, No Eczema, No Hair Changes, No Lumps, No Mole Changes, No Mottling, No Nail Changes, No Pruritus, No Rash, No Skin Lesion Changes, No Other, No Acne Physical Exam General: Alert, Oriented X3, Cooperative, No acute distress HEENT: Atraumatic, PERRLA Lungs: Normal air movement Heart: S1S2, RRR, no murmurs Abdomen: Soft (distended, not tender, some bowel sounds, took awhile to arrive, but then steady, distant sounds, ) Extremities: No clubbing, No edema, Normal pulses Skin: No breakdown Neuro: Normal speech, Normal tone Psych/Mental Status: Mental status NL, Mood NL Vitals Vitals Vital Signs Date Time Temp Pulse Resp B/P (MAP) Pulse Ox O2 Delivery O2 Flow Rate FiO2 01/28/21 08:00 99.7 98 20 156/58 (90) 98 Nasal Cannula 9.0 99.7 Labs Labs Laboratory Tests Test 01/28/21 03:03 01/28/21 03:55 Bedside Venous pH 7.50 (7.32-7.42) Bedside Venous pCO2 43 mmHg (41-51) Bedside Venous pO2 50 mmHg (20-40) Venous Blood HCO3 34 mmol/L (24-28) POC Venous O2 Saturation (Olga Lidia) 88 % Bedside FiO2 21.0 White Blood Count 25.8 x10^3/uL (4.0-11.0) Red Blood Count 4.70 x10^6/uL (3.50-5.40) Hemoglobin 14.1 g/dL (12.0-15.5) Hematocrit 42.2 % (36.0-47.0) Mean Corpuscular Volume 90 fL (79-100) Mean Corpuscular Hemoglobin 30 pg (25-35) Mean Corpuscular Hemoglobin Concent 34 g/dL (31-37) Red Cell Distribution Width 13.5 % (11.5-14.5) Platelet Count 334 x10^3/uL (140-400) Neutrophils (%) (Auto) 84 % (31-73) Lymphocytes (%) (Auto) 9 % (24-48) Monocytes (%) (Auto) 6 % (0-9) Eosinophils (%) (Auto) 0 % (0-3) Basophils (%) (Auto) 0 % (0-3) Neutrophils # (Auto) 21.7 x10^3/uL (1.8-7.7) Lymphocytes # (Auto) 2.4 x10^3/uL (1.0-4.8) Monocytes # (Auto) 1.6 x10^3/uL (0.0-1.1) Eosinophils # (Auto) 0.0 x10^3/uL (0.0-0.7) Basophils # (Auto) 0.1 x10^3/uL (0.0-0.2) Segmented Neutrophils % 73 % (35-66) Band Neutrophils % 3 % (0-9) Lymphocytes % 16 % (24-48) Monocytes % 7 % (0-10) Eosinophils % 1 % (0-5) Platelet Estimate Adequate (ADEQUATE) Sodium Level 136 mmol/L (136-145) Potassium Level 3.2 mmol/L (3.5-5.1) Chloride Level 98 mmol/L (98-107) Carbon Dioxide Level 31 mmol/L (21-32) Anion Gap 7 (6-14) Blood Urea Nitrogen 26 mg/dL (7-20) Creatinine 0.9 mg/dL (0.6-1.0) Estimated GFR (Cockcroft-Gault) 61.5 BUN/Creatinine Ratio 29 (6-20) Glucose Level 114 mg/dL (70-99) Lactic Acid Level 1.8 mmol/L (0.4-2.0) Calcium Level 9.6 mg/dL (8.5-10.1) Total Bilirubin 0.5 mg/dL (0.2-1.0) Aspartate Amino Transf (AST/SGOT) 18 U/L (15-37) Alanine Aminotransferase (ALT/SGPT) 27 U/L (14-59) Alkaline Phosphatase 140 U/L (46-116) Troponin I Quantitative < 0.017 ng/mL (0.000-0.055) MW-Lde-Z-Type Natriuretic Peptide 198 pg/mL (0-124) Total Protein 7.3 g/dL (6.4-8.2) Albumin 4.0 g/dL (3.4-5.0) Albumin/Globulin Ratio 1.2 (1.0-1.7) Laboratory Tests Test 01/28/21 03:03 01/28/21 03:55 Bedside Venous pH 7.50 (7.32-7.42) Bedside Venous pCO2 43 mmHg (41-51) Bedside Venous pO2 50 mmHg (20-40) Venous Blood HCO3 34 mmol/L (24-28) POC Venous O2 Saturation (Olga Lidia) 88 % Bedside FiO2 21.0 White Blood Count 25.8 x10^3/uL (4.0-11.0) Red Blood Count 4.70 x10^6/uL (3.50-5.40) Hemoglobin 14.1 g/dL (12.0-15.5) Hematocrit 42.2 % (36.0-47.0) Mean Corpuscular Volume 90 fL (79-100) Mean Corpuscular Hemoglobin 30 pg (25-35) Mean Corpuscular Hemoglobin Concent 34 g/dL (31-37) Red Cell Distribution Width 13.5 % (11.5-14.5) Platelet Count 334 x10^3/uL (140-400) Neutrophils (%) (Auto) 84 % (31-73) Lymphocytes (%) (Auto) 9 % (24-48) Monocytes (%) (Auto) 6 % (0-9) Eosinophils (%) (Auto) 0 % (0-3) Basophils (%) (Auto) 0 % (0-3) Neutrophils # (Auto) 21.7 x10^3/uL (1.8-7.7) Lymphocytes # (Auto) 2.4 x10^3/uL (1.0-4.8) Monocytes # (Auto) 1.6 x10^3/uL (0.0-1.1) Eosinophils # (Auto) 0.0 x10^3/uL (0.0-0.7) Basophils # (Auto) 0.1 x10^3/uL (0.0-0.2) Segmented Neutrophils % 73 % (35-66) Band Neutrophils % 3 % (0-9) Lymphocytes % 16 % (24-48) Monocytes % 7 % (0-10) Eosinophils % 1 % (0-5) Platelet Estimate Adequate (ADEQUATE) Sodium Level 136 mmol/L (136-145) Potassium Level 3.2 mmol/L (3.5-5.1) Chloride Level 98 mmol/L (98-107) Carbon Dioxide Level 31 mmol/L (21-32) Anion Gap 7 (6-14) Blood Urea Nitrogen 26 mg/dL (7-20) Creatinine 0.9 mg/dL (0.6-1.0) Estimated GFR (Cockcroft-Gault) 61.5 BUN/Creatinine Ratio 29 (6-20) Glucose Level 114 mg/dL (70-99) Lactic Acid Level 1.8 mmol/L (0.4-2.0) Calcium Level 9.6 mg/dL (8.5-10.1) Total Bilirubin 0.5 mg/dL (0.2-1.0) Aspartate Amino Transf (AST/SGOT) 18 U/L (15-37) Alanine Aminotransferase (ALT/SGPT) 27 U/L (14-59) Alkaline Phosphatase 140 U/L (46-116) Troponin I Quantitative < 0.017 ng/mL (0.000-0.055) DU-Eih-F-Type Natriuretic Peptide 198 pg/mL (0-124) Total Protein 7.3 g/dL (6.4-8.2) Albumin 4.0 g/dL (3.4-5.0) Albumin/Globulin Ratio 1.2 (1.0-1.7) Images Images 1. There is an enlarging pulmonary nodule in the right upper lobe that now measures up to 1.4 cm versus 0.7 cm previously. Findings are suspicious for malignancy. PET CT could better evaluate. 2. Multiple additional noncalcified pulmonary nodules, the majority of which are stable. There is a somewhat vague nodule in the left upper lobe that is new. Continued follow-up imaging to ensure stability. 3. Emphysema with bibasilar scarring is bronchial wall thickening. 4. Coronary artery calcifications and mild ectasia of the ascending thoracic aorta. 5. Borderline enlarged mediastinal lymph nodes, nonspecific VTE Prophylaxis Ordered VTE Prophylaxis Devices: No VTE Pharmacological Prophylaxi: Yes Assessment/Plan Assessment/Plan shortness of breath, acute on chronic COPD with acute exacerbation, chronic hypercarbic and hypoxic respiratory failure SIRS, gievn abx, Rocephin, will start Doxy new abdominal distention, will check KUB, will consult GI, poss allergy or reactive colitis, CAD hx, prior stent, discussed with CV team, tele looks good, n Justifications for Admission Other Justification RONNY BARRERA MD Jan 28, 2021 10:01
[2021-01-28] MEDS ORDERED: POTASSIUM CHLORIDE 20 MEQ TABLET.ER. PO ONE (10:15)
--- NOTE | 2021-01-28 10:20 | PDOC2 ---
ISSA BLAND SPEECH PATHOLOGIST 01/28/21 1020: CARDIAC CONSULT DATE OF CONSULT Date of Consult DATE: 01/28/21 TIME: 10:01 REASON FOR CONSULT Reason for Consult: SOA, abd distention REFERRING PHYSICIAN Referring Physician: Wilberto SOURCE Source: Chart review HISTORY OF PRESENT ILLNESS HISTORY OF PRESENT ILLNESS This is a pleasant 70 yo female admitted for complains of shortness of breath. She has been having SOA in the last 2-3 weeks. She has COPD and uses O2 3-4 LPM at home and her O2 sats has been >90% consistently at home. In the last 1-2 weeks she has been more SOA. She has been wheezing and has been coughing more despite breathing treatments. finishing her augmentin and has 1 more day of prednisone left. She has CAD with stent to RCA in the past and denies any chest pain, nausea or vomiting. Denies any palpitations. She takes ASA and does not take any statin and could not remember if she still takes BP med. Denies any anosmia or ageusia and denies any recent covid-19 exposure. No fever or chils at home until as inpt she had some fever. No recent falls or injury and no prior hx of VTE. She has been having intractable coughing and has also been feeling some abdominal distention. Denies any diarrhea. Her abd discomfort has gotten better overnight. Denies any leg pain with ambulation. PAST MEDICAL HISTORY Cardiovascular: CAD, HTN, Hyperlipidemia, Other (chronic infrarenal aortic dissection, ectatic aorta 2.9cm, ectatic common iliac arteries and bilateral external iliac artery stenosis from atherosclerotic disease/dissection right >left) Pulmonary: COPD CENTRAL NERVOUS SYSTEM: Carpal Tunnel Syndrome GI: Constipation, GERD, Peptic Ulcer disease Heme/Onc: No pertinent hx Hepatobiliary: No pertinent hx Psych: No pertinent hx Musculoskeletal: Osteoarthritis Rheumatologic: No pertinent hx Infectious disease: No pertinent hx ENT: No pertinent hx Renal/: Urinary Incontinence Endocrine: No pertinent hx Dermatology: No pertinent hx PAST SURGICAL HISTORY Past Surgical History: Hysterectomy, Other (CTS release, PCI) FAMILY HISTORY Family History: Hypertension SOCIAL HISTORY Smoke: Quit ALCOHOL: none Drugs: None Lives: with Family CURRENT MEDICATIONS CURRENT MEDICATIONS Current Medications Medications (Trade) Dose Ordered Sig/Kenan Route PRN Reason Start Time Stop Time Status Last Admin Dose Admin Ceftriaxone Sodium (Rocephin) 1 gm 1X ONCE IVP 01/28/21 04:00 01/28/21 04:01 DC 01/28/21 04:27 Morphine Sulfate (Morphine Sulfate) 5 mg 1X ONCE IV 01/28/21 04:15 01/28/21 04:16 DC 01/28/21 04:28 Albuterol/ Ipratropium (Duoneb) 3 ml 1X ONCE NEB 01/28/21 04:15 01/28/21 04:16 DC 01/28/21 04:17 Sodium Chloride 500 ml @ 500 mls/hr 1X ONCE IV 01/28/21 04:45 01/28/21 05:44 DC 01/28/21 05:37 ALLERGIES ALLERGIES: Coded Allergies: NSAIDS (Non-Steroidal Anti-Inflamma (Verified Allergy, Intermediate, ITCH, RASH, 07/09/14) amoxicillin (Verified Adverse Reaction, Intermediate, nausea, vomiting, 01/28/21) erythromycin base (Verified Adverse Reaction, Intermediate, nausea, vomiting, 01/28/21) ROS Review of System 14 point ROS evaluated with pertinent positives noted per HPI PHYSICAL EXAM General: Alert, Oriented X3, Cooperative, mild distress HEENT: Atraumatic, Mucous membr. moist/pink Lungs: Other (diffuse wheeze) Heart: Regular rate (SR), Other (distant heart sounds) Abdomen: Soft, No tenderness Extremities: No cyanosis, No edema Skin: No breakdown, No significant lesion Neuro: Normal speech, Sensation intact Psych/Mental Status: Mental status NL, Mood NL MUSCULOSKELETAL: Osteoarthritic changes both hands VITALS/I&O VITALS/I&O: Vital Signs Date Time Temp Pulse Resp B/P (MAP) Pulse Ox O2 Delivery O2 Flow Rate FiO2 01/28/21 08:00 99.7 98 20 156/58 (90) 98 Nasal Cannula 9.0 99.7 LABS Lab: Laboratory Tests Test 01/28/21 03:03 01/28/21 03:55 POC Venous pH 7.50 (7.32-7.42) H POC Venous pCO2 43 mmHg (41-51) POC Venous pO2 50 mmHg (20-40) H Venous Blood HCO3 34 mmol/L (24-28) H POC Venous O2 Saturation (Olga Lidia) 88 % POC FiO2 21.0 White Blood Count 25.8 x10^3/uL (4.0-11.0) H Red Blood Count 4.70 x10^6/uL (3.50-5.40) Hemoglobin 14.1 g/dL (12.0-15.5) Hematocrit 42.2 % (36.0-47.0) Mean Corpuscular Volume 90 fL (79-100) Mean Corpuscular Hemoglobin 30 pg (25-35) Mean Corpuscular Hemoglobin Concent 34 g/dL (31-37) Red Cell Distribution Width 13.5 % (11.5-14.5) Platelet Count 334 x10^3/uL (140-400) Neutrophils (%) (Auto) 84 % (31-73) H Lymphocytes (%) (Auto) 9 % (24-48) L Monocytes (%) (Auto) 6 % (0-9) Eosinophils (%) (Auto) 0 % (0-3) Basophils (%) (Auto) 0 % (0-3) Neutrophils # (Auto) 21.7 x10^3/uL (1.8-7.7) H Lymphocytes # (Auto) 2.4 x10^3/uL (1.0-4.8) Monocytes # (Auto) 1.6 x10^3/uL (0.0-1.1) H Eosinophils # (Auto) 0.0 x10^3/uL (0.0-0.7) Basophils # (Auto) 0.1 x10^3/uL (0.0-0.2) Segmented Neutrophils % 73 % (35-66) H Band Neutrophils % 3 % (0-9) Lymphocytes % 16 % (24-48) L Monocytes % 7 % (0-10) Eosinophils % 1 % (0-5) Platelet Estimate Adequate (ADEQUATE) Sodium Level 136 mmol/L (136-145) Potassium Level 3.2 mmol/L (3.5-5.1) L Chloride Level 98 mmol/L (98-107) Carbon Dioxide Level 31 mmol/L (21-32) Anion Gap 7 (6-14) Blood Urea Nitrogen 26 mg/dL (7-20) H Creatinine 0.9 mg/dL (0.6-1.0) Estimated GFR (Cockcroft-Gault) 61.5 BUN/Creatinine Ratio 29 (6-20) H Glucose Level 114 mg/dL (70-99) H Lactic Acid Level 1.8 mmol/L (0.4-2.0) Calcium Level 9.6 mg/dL (8.5-10.1) Total Bilirubin 0.5 mg/dL (0.2-1.0) Aspartate Amino Transferase (AST) 18 U/L (15-37) Alanine Aminotransferase (ALT) 27 U/L (14-59) Alkaline Phosphatase 140 U/L (46-116) H Troponin I Quantitative < 0.017 ng/mL (0.000-0.055) FU-Upg-K-Type Natriuretic Peptide 198 pg/mL (0-124) H Total Protein 7.3 g/dL (6.4-8.2) Albumin 4.0 g/dL (3.4-5.0) Albumin/Globulin Ratio 1.2 (1.0-1.7) Laboratory Tests 01/28/21 03:55 Laboratory Tests 01/28/21 03:55 ECHOCARDIOGRAM ECHOCARDIOGRAM <Conclusion> The left ventricle is normal size. The left ventricular systolic function is normal and the ejection fraction is within normal range. The Ejection Fraction is 55-60%. There is borderline concentric left ventricular hypertrophy. There is no significant aortic valvular stenosis. Doppler and Color Flow revealed no significant aortic regurgitation. Doppler and Color Flow revealed no mitral valve regurgitation noted. Doppler and Color Flow revealed trace tricuspid valve regurgitation with an estimated PAP of 28 mmHg. DATE: 04/23/19 1214 STRESS TEST STRESS TEST Conclusion 1. No EKG evidence of stress induced ischemia. 2. Nuclear imaging shows no reversible ischemia or infarct. 3. Normal LV systolic function with an EF of > 70%. 4. Low risk Lexiscan nuclear stress test. DATE: 04/26/19 1404 HEART CATH HEART CATH Coronary Angiography The patient's coronary anatomy is right dominant. The left main coronary artery is a large size vessel free of disease. The left main bifurcates to the left anterior descending and circumflex. The left anterior descending artery is a medium size vessel with intimal irregularities and without significant stenosis. The first diagonal branch is a small size vessel free of disease. The second diagonal branch is a small size vessel free of disease. The third diagonal branch is a small size vessel free of disease. The circumflex artery is a medium size vessel free of disease. The first obtuse marginal branch is a small size vessel free of disease. The second obtuse marginal branch is a small size vessel free of disease. The right coronary artery is a large size vessel with stenosis distal to the stent of 30%, no instent restenosis. The right posterior descending artery is a medium size vessel free of disease. The right posterolateral branch is a small size vessel free of disease. Left Ventriculography The left ventricle is normal in size with normal contractility. The left ventricular ejection fraction is estimated to be 60%. The left ventricular end diastolic pressure is 11 mmHg. There was no gradient across the aortic valve upon pullback. Aorta The views of the distal abdominal aorta show what seems to be an aneurism at the bifurcation with possible dissection going to the R Iliac. Conclusion This pt does not have any significant CAD or restenosis of the stent in the RCA. Doubt her chest pain was angina. 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 Will get a CTA of the distal aorta to further evaluate the findings and then make further recommendations. DATE: 10/16/171808 ASSESSMENT/PLAN ASSESSMENT/PLAN 1. AECOPD: CT chest reveleased bilateral pulmonary nodules 2. Fever/leukocytosis: today is suppose to be her last day for prednisone 3. CAD: past stent, clinically stable 4. Abdominal distention: possibly from dyspepsia with intractable coughing and associated ventral hernia, much better today. No other GI s/s 5. HTN: controlled 6. Allergy to lisinopril: cough 7. Chronic infrarenal aortic dissection, ectatic aorta 2.9cm, ectatic common iliac arteries and bilateral external iliac artery stenosis from atherosclerotic disease/dissection right >left noted in 10/2017 8. HLP Recommendations 1. Consult pulmonary 2. No lisinopril, may start on losartan pending BP trend 3. Antibiotics per ID and pulmonary 4. Unable to place on BB due to wheezing. 5. Will start on statin 6. Continue ASA, replace K 7. Will need outpt follow up CT in regards to her PAD as noted above TRUPTI TRIMBLE MD 01/28/21 1513: CARDIAC CONSULT ASSESSMENT/PLAN ASSESSMENT/PLAN Patient seen and examined. Agree with above nurse practitioner note. No clear CV issues. Supportive care. Thanks ISSA BLAND APRN Jan 28, 2021 10:20 TRUPTI TIRMBLE MD Jan 28, 2021 15:13
[2021-01-28] MEDS ORDERED: DOXYCYCLINE HYCLATE 100 MG TABLET PO ONE (10:30)
--- NOTE | 2021-01-28 10:58 | EKG ---
[facility] [address] [place] [address] Test Date: 2021-01-28 Test Time: 10:57:04 Pat Name: MADONNA STILL Department: Room: 200 1 Gender: F Director Public Service: MAGGIE : 1950 Requested By: ISSA BLAND Order Number: [id number] Reading MD: Measurements Intervals [place] Rate: 81 P: -21 MI: 146 QRS: 6 QRSD: 70 T: 66 QT: 360 QTc: 424 Interpretive Statements SINUS RHYTHM NO SPECIFIC ECG ABNORMALITIES RI6.02 Compared to ECG 03/08/2019 04:47:41 T-wave abnormality no longer present ST (T wave) deviation no longer present
[2021-01-28 11:00] VITALS: BP 131/50
[2021-01-28 11:03] LABS: BILIRUBIN,URINE NEGATIVE (NEG); CLARITY,URINE CLEAR; COLOR,URINE YELLOW; NITRITE,URINE NEGATIVE (NEG); PH,URINE 5.5 (<5.0-8.0); PROTEIN,URINE NEGATIVE (NEG-TRACE); UROBILINOGEN,URINE 0.2 mg/dL (0.2 mg/dL)
[2021-01-28 11:12] LABS: BACTERIA,URINE FEW /HPF (0-FEW)
[2021-01-28 11:17] LABS: CHOLESTEROL/HDL RATIO 2.5
[2021-01-28] MEDS: guaiFENesin/CODEINE 100mg/10mg 5 ML LIQUID PO PRN ×2 (11:43→20:41)
[2021-01-28] MEDS: ASPIRIN CHEWABLE 81 MG TABLET. PO SCH (11:44)
[2021-01-28] MEDS: BUDESONIDE 0.5 MG/2 ML NEBU. NEB SCH ×2 (12:09→20:25)
[2021-01-28] MEDS: IPRATRPIUM/ALBUTEROL 0.5/2.5MG 3 ML NEBU. NEB SCH ×2 (12:09→20:24)
--- NOTE | 2021-01-28 12:21 | CONS ---
DATE OF CONSULTATION: 01/28/2021 PULMONARY CONSULTATION ATTENDING PHYSICIAN: Dr. Tenorio REASON FOR CONSULTATION: Dyspnea, abnormal CT chest with lung nodule. HISTORY OF PRESENT ILLNESS: The patient is a 70-year-old female who has a history of COPD. She is on home oxygen at 4 liters. She has been followed by me in the office for waxing and waning lung nodules. The patient had in the past a PET scan, which did not show any hypermetabolic activity in the lung nodules. Her blood tests also did not show any suspicion for malignancy. The patient was brought in to the hospital with complaint of abdominal bloating and pain. The patient was nauseous as well. The patient has started to have a cough, which has been productive of greenish sputum. She had a white cell count of 25.8. Her imaging study was performed including a CT of the chest, which was reviewed by me. The nodule in the right upper lobe measures 1.4 cm and previously was 0.7 cm. Three additional nodules in the anterior right upper lobe that is unchanged, largest of which measures about 6 mm. The patient also had a left upper lobe nodule, which is stable at 7 mm. Another nodule also at 7 mm, which is new from prior study. She has evidence of emphysema. Some nonspecific mediastinal lymph node enlargement. I have been asked to see her for further evaluation. PAST MEDICAL HISTORY: Significant for CAD, history of COPD, oxygen dependent with chronic hypoxic respiratory failure, history of GERD, osteoarthritis. PAST SURGICAL HISTORY: Hysterectomy. ALLERGIES: NONSTEROIDALS AMOXICILLIN AND ERYTHROMYCIN. MEDICATIONS: All reviewed as listed in the MRAD including Rocephin and DuoNeb and Pulmicort. REVIEW OF SYSTEMS: A 12-point system was obtained. Pertinent positives discussed in my present illness, otherwise noncontributory. All systems that were negative were reviewed as well. FAMILY HISTORY: Noncontributory to lungs. SOCIAL HISTORY: Smoked for 50 years before quitting. PHYSICAL EXAMINATION: VITAL SIGNS: Reviewed. She had a fever of 100.9. Pulse ox is 98% on 9 liters. Blood pressure stable. NECK: Supple. LUNGS: With few wheezes. HEART: Regular rhythm. ABDOMEN: Soft, nontender. EXTREMITIES: With no pitting edema. LABORATORY DATA: Reviewed. Sodium 136, potassium 3.2, BUN 26 and creatinine 0.9. ABGs with a pH of 7.5, pCO2 of 43 and a pO2 of 50 on room air. White cell count 25.8. ASSESSMENT AND PLAN: 1. Acute on chronic hypoxic respiratory failure secondary to acute exacerbation of chronic obstructive pulmonary disease and acute bronchitis. 2. Abnormal CT chest dated 01/28/2021 with increase in the size of the nodule of 1.4 cm compared to the previous 0.7 cm in the right upper lobe. This is the same nodule, which was 15 mm in size in 01/2020. PET scan in the past had not shown any hypermetabolic activity. There are other bilateral lung nodules as well. The nodules have been waxing and waning and likely inflammatory in etiology. We will consider repeating a PET scan as an outpatient. Her blood test for cancer antigens was negative previously. 3. The patient with severe oxygen dependent chronic obstructive pulmonary disease. 4. Abdominal distention per primary care physician. RECOMMENDATIONS: 1. Discussed with the patient and RN. At this time, we will treat her acute bronchitis and chronic obstructive pulmonary disease exacerbation with bronchodilators and antibiotics. 2. Follow up with me in the office with a PET scan as an outpatient. 3. Continue with supportive medication. 4. We will follow along with you. 5. Discussed with the patient in detail about the ct chest and need for repeat PET scan as OP. CLAY DR: Delma TID: [id number] SABA
--- NOTE | 2021-01-28 12:46 | NUR ---
SS following for discharge planning. SS reviewed pt chart and discussed with pt RN. Pt is from home with spouse and is currently requiring oxygen at four liters nasal canula. Pt has home oxygen at four liters. Pt on IV Rocephin. Cardiology, Pulmonology, GI, and ID consulted. SS will continue to follow for discharge planning.
[2021-01-28] MEDS ORDERED: ALBUTEROL SULFATE 2.5 MG/3 ML NEBU. INH SCH (13:00)
--- NOTE | 2021-01-28 14:20 | PDOC2 ---
GI CONSULT Date of Service: DATE: 01/28/21 TIME: 14:04 Reason For Consult: abd bloating and pain in the evenings HPI: HPI: 70 y/o female who reports "bad bloating" that is "very painful" that has occurred intermittently for about a year. Most recent flare began three weeks ago - occurs every couple days. Starts in upper abdomen and radiates diffusely. "I tried vomiting but that didn't work." Might be worse after eating but usually doesn't eat much during the day. H/o GERD - current symptoms don't feel like usual GERD symptoms. Took Prilosec OTC QHS in the past - advised to stop by ENT and instead was told to not eat or drink anything 4 hours before bed. No n/v, diarrhea, constipation, hematochezia, melena, or weight loss. Reports "good" appetite. Past EGD and colonoscopy ~10 years ago w/ Dr. Higuera @ [facility] - recalls no significant findings except had esophageal dilation. Says she didn't know she had trouble swallowing before but noticed an improvement after. "He said the acid reflux caused it." No GB, liver, pancreas, or PUD history. On ASA. PMH: PMH: CAD, HTN, COPD, GERD, depression, OA, lung nodule hysterectomy FH: Family History: Cancer (sister - esophageal, mother and brothers - lung) Social History: Smoke: No ALCOHOL: none Drugs: None ROS: GEN: Denies fevers, chills, sweats HEENT: Denies blurred vision, sore throat CV: Denies chest pain RESP: Denies shortness of air, cough GI: Per HPI : Denies hematuria, dysuria ENDO: Denies weight changes NEURO: Denies confusion, dizziness MSK: Denies weakness, joint pain/swelling SKIN: Denies jaundice, pruritus Vitals: Vitals: Vital Signs Date Time Temp Pulse Resp B/P (MAP) Pulse Ox O2 Delivery O2 Flow Rate FiO2 01/28/21 12:10 95 Nasal Cannula 4.0 01/28/21 11:00 99.9 80 22 131/50 (77) 99.9 Labs: Labs: Laboratory Tests Test 01/28/21 03:03 01/28/21 03:55 01/28/21 10:50 Bedside Venous pH 7.50 (7.32-7.42) Bedside Venous pCO2 43 mmHg (41-51) Bedside Venous pO2 50 mmHg (20-40) Venous Blood HCO3 34 mmol/L (24-28) POC Venous O2 Saturation (Olga Lidia) 88 % Bedside FiO2 21.0 White Blood Count 25.8 x10^3/uL (4.0-11.0) Red Blood Count 4.70 x10^6/uL (3.50-5.40) Hemoglobin 14.1 g/dL (12.0-15.5) Hematocrit 42.2 % (36.0-47.0) Mean Corpuscular Volume 90 fL (79-100) Mean Corpuscular Hemoglobin 30 pg (25-35) Mean Corpuscular Hemoglobin Concent 34 g/dL (31-37) Red Cell Distribution Width 13.5 % (11.5-14.5) Platelet Count 334 x10^3/uL (140-400) Neutrophils (%) (Auto) 84 % (31-73) Lymphocytes (%) (Auto) 9 % (24-48) Monocytes (%) (Auto) 6 % (0-9) Eosinophils (%) (Auto) 0 % (0-3) Basophils (%) (Auto) 0 % (0-3) Neutrophils # (Auto) 21.7 x10^3/uL (1.8-7.7) Lymphocytes # (Auto) 2.4 x10^3/uL (1.0-4.8) Monocytes # (Auto) 1.6 x10^3/uL (0.0-1.1) Eosinophils # (Auto) 0.0 x10^3/uL (0.0-0.7) Basophils # (Auto) 0.1 x10^3/uL (0.0-0.2) Segmented Neutrophils % 73 % (35-66) Band Neutrophils % 3 % (0-9) Lymphocytes % 16 % (24-48) Monocytes % 7 % (0-10) Eosinophils % 1 % (0-5) Platelet Estimate Adequate (ADEQUATE) Sodium Level 136 mmol/L (136-145) Potassium Level 3.2 mmol/L (3.5-5.1) Chloride Level 98 mmol/L (98-107) Carbon Dioxide Level 31 mmol/L (21-32) Anion Gap 7 (6-14) Blood Urea Nitrogen 26 mg/dL (7-20) Creatinine 0.9 mg/dL (0.6-1.0) Estimated GFR (Cockcroft-Gault) 61.5 BUN/Creatinine Ratio 29 (6-20) Glucose Level 114 mg/dL (70-99) Lactic Acid Level 1.8 mmol/L (0.4-2.0) Calcium Level 9.6 mg/dL (8.5-10.1) Total Bilirubin 0.5 mg/dL (0.2-1.0) Aspartate Amino Transf (AST/SGOT) 18 U/L (15-37) Alanine Aminotransferase (ALT/SGPT) 27 U/L (14-59) Alkaline Phosphatase 140 U/L (46-116) Troponin I Quantitative < 0.017 ng/mL (0.000-0.055) FP-Umi-F-Type Natriuretic Peptide 198 pg/mL (0-124) Total Protein 7.3 g/dL (6.4-8.2) Albumin 4.0 g/dL (3.4-5.0) Albumin/Globulin Ratio 1.2 (1.0-1.7) Triglycerides Level 87 mg/dL (0-150) Cholesterol Level 253 mg/dL (0-200) LDL Cholesterol, Calculated 136 mg/dL (0-100) VLDL Cholesterol, Calculated 17 mg/dL (0-40) Non-HDL Cholesterol Calculated 153 mg/dL (0-129) HDL Cholesterol 100 mg/dL (40-60) Cholesterol/HDL Ratio 2.5 Urine Collection Type Unknown Urine Color Yellow Urine Clarity Clear Urine pH 5.5 (<5.0-8.0) Urine Specific [place] 1.025 (1.000-1.030) Urine Protein Negative mg/dL (NEG-TRACE) Urine Glucose (UA) Negative mg/dL (NEG) Urine Ketones (Stick) Negative mg/dL (NEG) Urine Blood Small (NEG) Urine Nitrite Negative (NEG) Urine Bilirubin Negative (NEG) Urine Urobilinogen Dipstick 0.2 mg/dL (0.2 mg/dL) Urine Leukocyte Esterase Negative (NEG) Urine RBC 3-5 /HPF (0-2) Urine WBC 1-4 /HPF (0-4) Urine Squamous Epithelial Cells Few /LPF Urine Bacteria Few /HPF (0-FEW) Allergies: Coded Allergies: NSAIDS (Non-Steroidal Anti-Inflamma (Verified Allergy, Intermediate, ITCH, RASH, 07/09/14) amoxicillin (Verified Adverse Reaction, Intermediate, nausea, vomiting, 01/28/21) erythromycin base (Verified Adverse Reaction, Intermediate, nausea, vomiting, 01/28/21) Medications: Current Medications Medications (Trade) Dose Ordered Sig/Kenan Route PRN Reason Start Time Stop Time Status Last Admin Dose Admin Ceftriaxone Sodium (Rocephin) 1 gm 1X ONCE IVP 01/28/21 04:00 01/28/21 04:01 DC 01/28/21 04:27 Morphine Sulfate (Morphine Sulfate) 5 mg 1X ONCE IV 01/28/21 04:15 01/28/21 04:16 DC 01/28/21 04:28 Albuterol/ Ipratropium (Duoneb) 3 ml 1X ONCE NEB 01/28/21 04:15 01/28/21 04:16 DC 01/28/21 04:17 Sodium Chloride 500 ml @ 500 mls/hr 1X ONCE IV 01/28/21 04:45 01/28/21 05:44 DC 01/28/21 05:37 Aspirin (Aspirin Chewable) 81 mg DAILY PO 01/28/21 10:00 01/28/21 11:44 Guaifenesin/ Codeine Phosphate (Robitussin Ac) 10 ml TID PRN PRN PO COUGH 01/28/21 10:00 01/28/21 11:43 Albuterol/ Ipratropium (Duoneb) 3 ml TID NEB 01/28/21 14:00 01/28/21 12:09 Potassium Chloride (Klor-Con) 40 meq 1X ONCE PO 01/28/21 10:15 01/28/21 10:20 DC 01/28/21 11:44 Budesonide (Pulmicort) 0.5 mg RTBID NEB 01/28/21 12:00 01/28/21 12:09 Doxycycline Hyclate (Vibra-Tab) 100 mg 1X ONCE PO 01/28/21 10:30 01/28/21 10:36 DC 01/28/21 11:44 Imaging: Imaging: CXR IMPRESSION: 1. No acute radiographic abnormality. 2. Findings consistent with COPD. 3. There is suspected interval enlargement of a pulmonary nodule in the right upper lobe. Neoplastic processes not excluded. Follow-up CT to better evaluate. Chest CT IMPRESSION: 1. There is an enlarging pulmonary nodule in the right upper lobe that now measures up to 1.4 cm versus 0.7 cm previously. Findings are suspicious for malignancy. PET CT could better evaluate. 2. Multiple additional noncalcified pulmonary nodules, the majority of which are stable. There is a somewhat vague nodule in the left upper lobe that is new. Continued follow-up imaging to ensure stability. 3. Emphysema with bibasilar scarring is bronchial wall thickening. 4. Coronary artery calcifications and mild ectasia of the ascending thoracic aorta. 5. Borderline enlarged mediastinal lymph nodes, nonspecific. PE: GEN: NAD HEENT: Atraumatic, PERRL LUNGS: diminished anteriorly, NC 4L, dry cough HEART: RRR, ABD: soft, some distention, non-tender EXTREMITY: No edema SKIN: No rashes, no jaundice NEURO/PSYCH: A & O 3 A/P: A/P: COPD exacerbation, fever Bloating, abd discomfort (?post-prandial) Leukocytosis H/o GERD - off PPI x 1 year CRC screen - reportedly normal 10 years ago FH esophageal cancer CAD on ASA, lung nodule -- ?related to GERD - would resume PPI. Will also ask for records of past scopes from [facility]. EDWARDO MORRISON Jan 28, 2021 14:20
[2021-01-28] MEDS: oxyCODONE/APAP 5/325 1 TAB TABLET PO SCH ×2 (14:55→20:41)
[2021-01-28 15:00] VITALS: BP 112/52
[2021-01-28 18:44] VITALS: BP 100/49
[2021-01-28] MEDS: ATORVASTATIN CALCIUM 20 MG TABLET PO SCH (20:41)
[2021-01-28] MEDS: LACTOBACILLUS RHAMNOSUS GG 1 CAPSULE. PO SCH (20:41)
[2021-01-28] MEDS: MONTELUKAST SODIUM 10 MG TABLET. PO SCH (20:41)
[2021-01-28] MEDS: DOXYCYCLINE HYCLATE 100 MG TABLET PO SCH (20:42)
--- NOTE | 2021-01-28 20:49 | PDOC ---
Infectious Disease Note Vital Signs: Vital Signs Vital Signs Date Time Temp Pulse Resp B/P (MAP) Pulse Ox O2 Delivery O2 Flow Rate FiO2 01/28/21 20:26 96 Nasal Cannula 4.0 01/28/21 18:44 98.4 64 20 100/49 (66) 98.4 Medications: Inpatient Meds: Medications reviewed. Labs: Lab Laboratory Tests Test 01/28/21 03:03 01/28/21 03:55 01/28/21 10:50 Bedside Venous pH 7.50 (7.32-7.42) Bedside Venous pCO2 43 mmHg (41-51) Bedside Venous pO2 50 mmHg (20-40) Venous Blood HCO3 34 mmol/L (24-28) POC Venous O2 Saturation (Olga Lidia) 88 % Bedside FiO2 21.0 White Blood Count 25.8 x10^3/uL (4.0-11.0) Red Blood Count 4.70 x10^6/uL (3.50-5.40) Hemoglobin 14.1 g/dL (12.0-15.5) Hematocrit 42.2 % (36.0-47.0) Mean Corpuscular Volume 90 fL (79-100) Mean Corpuscular Hemoglobin 30 pg (25-35) Mean Corpuscular Hemoglobin Concent 34 g/dL (31-37) Red Cell Distribution Width 13.5 % (11.5-14.5) Platelet Count 334 x10^3/uL (140-400) Neutrophils (%) (Auto) 84 % (31-73) Lymphocytes (%) (Auto) 9 % (24-48) Monocytes (%) (Auto) 6 % (0-9) Eosinophils (%) (Auto) 0 % (0-3) Basophils (%) (Auto) 0 % (0-3) Neutrophils # (Auto) 21.7 x10^3/uL (1.8-7.7) Lymphocytes # (Auto) 2.4 x10^3/uL (1.0-4.8) Monocytes # (Auto) 1.6 x10^3/uL (0.0-1.1) Eosinophils # (Auto) 0.0 x10^3/uL (0.0-0.7) Basophils # (Auto) 0.1 x10^3/uL (0.0-0.2) Segmented Neutrophils % 73 % (35-66) Band Neutrophils % 3 % (0-9) Lymphocytes % 16 % (24-48) Monocytes % 7 % (0-10) Eosinophils % 1 % (0-5) Platelet Estimate Adequate (ADEQUATE) Sodium Level 136 mmol/L (136-145) Potassium Level 3.2 mmol/L (3.5-5.1) Chloride Level 98 mmol/L (98-107) Carbon Dioxide Level 31 mmol/L (21-32) Anion Gap 7 (6-14) Blood Urea Nitrogen 26 mg/dL (7-20) Creatinine 0.9 mg/dL (0.6-1.0) Estimated GFR (Cockcroft-Gault) 61.5 BUN/Creatinine Ratio 29 (6-20) Glucose Level 114 mg/dL (70-99) Lactic Acid Level 1.8 mmol/L (0.4-2.0) Calcium Level 9.6 mg/dL (8.5-10.1) Total Bilirubin 0.5 mg/dL (0.2-1.0) Aspartate Amino Transf (AST/SGOT) 18 U/L (15-37) Alanine Aminotransferase (ALT/SGPT) 27 U/L (14-59) Alkaline Phosphatase 140 U/L (46-116) Troponin I Quantitative < 0.017 ng/mL (0.000-0.055) CH-[id number]-Type Natriuretic Peptide 198 pg/mL (0-124) Total Protein 7.3 g/dL (6.4-8.2) Albumin 4.0 g/dL (3.4-5.0) Albumin/Globulin Ratio 1.2 (1.0-1.7) Triglycerides Level 87 mg/dL (0-150) Cholesterol Level 253 mg/dL (0-200) LDL Cholesterol, Calculated 136 mg/dL (0-100) VLDL Cholesterol, Calculated 17 mg/dL (0-40) Non-HDL Cholesterol Calculated 153 mg/dL (0-129) HDL Cholesterol 100 mg/dL (40-60) Cholesterol/HDL Ratio 2.5 Urine Collection Type Unknown Urine Color Yellow Urine Clarity Clear Urine pH 5.5 (<5.0-8.0) Urine Specific [place] 1.025 (1.000-1.030) Urine Protein Negative mg/dL (NEG-TRACE) Urine Glucose (UA) Negative mg/dL (NEG) Urine Ketones (Stick) Negative mg/dL (NEG) Urine Blood Small (NEG) Urine Nitrite Negative (NEG) Urine Bilirubin Negative (NEG) Urine Urobilinogen Dipstick 0.2 mg/dL (0.2 mg/dL) Urine Leukocyte Esterase Negative (NEG) Urine RBC 3-5 /HPF (0-2) Urine WBC 1-4 /HPF (0-4) Urine Squamous Epithelial Cells Few /LPF Urine Bacteria Few /HPF (0-FEW) Objective: Assessment: Late entry Pt seen this am ID consult dictated Plan: Plan of Care Dyspnea Abdominal discomfort Leucocytosis on steroids REC: cont ceftriaxone add doxy f/u UA D/W RN Thank you BLU TOMAS MD Jan 28, 2021 20:49
[2021-01-28] MEDS ORDERED: NON FORMULARY ITEM (Budesonide (Pulmicort Flexhaler) 2 PUFF) IH SCH (21:00)
[2021-01-28] MEDS ORDERED: cefTRIAXone IV Push 2 GM VIAL. IVP SCH (21:00)
[2021-01-28] MEDS ORDERED: DOXYCYCLINE HYCLATE 100 MG TABLET PO SCH (21:00)
--- NOTE | 2021-01-28 21:51 | CONS ---
DATE OF CONSULTATION: 01/28/2021 REFERRING PHYSICIAN: Dr. Tenorio. REASON FOR CONSULTATION: Sepsis. HISTORY OF PRESENT ILLNESS: A 70-year-old female with a past medical history of coronary artery disease, hypertension, chronic obstructive pulmonary disease, gastroesophageal reflux disease, peptic ulcer disease, depression, osteoarthritis with chronic hypoxic respiratory failure on home O2 at 4 liters, presented to the Emergency Room with complaints of abdominal discomfort and worsening shortness of breath over the last 3 weeks. The patient also had productive sputum bringing up yellow phlegm. SHE HAD AN ALLERGIC REACTION TO LISINOPRIL. She was started on prednisone. Today is her last day of prednisone. The patient did not know she was having fevers, but in the Emergency Room, she was febrile at 100.9. White count was 25.8, normal lactate, normal creatinine. Troponin was normal. BNP was 198. UA is pending. Chest x-ray revealed no acute radiographic abnormality finding consistent with chronic obstructive pulmonary disease. There is a suspected interval enlargement of the pulmonary nodule in the right upper lobe. Neoplastic process cannot be excluded. She underwent CT of the chest which showed enlarging pulmonary nodule to the right upper lobe up to 1.4 cm, previously was 0.7 cm. Multiple additional noncalcified pulmonary nodules, emphysema with bibasilar scarring with bronchial wall thickening, coronary artery calcification and mild ectasia of the ascending thoracic aorta, borderline enlarged mediastinal lymph node, nonspecific. The patient received a dose of ceftriaxone in the Emergency Room. KUB is pending. Infectious Disease consultation has been requested for antibiotic management. The patient is sitting at the edge of the bed, complains of worsening shortness of breath with wheezing. Abdominal pain is mainly in the upper quadrant. Denies any nausea, vomiting, diarrhea or symptoms; had been on antibiotics currently, but could not recall the name prior to admission along with prednisone as above. PAST MEDICAL HISTORY: Coronary artery disease, chronic obstructive pulmonary disease, on 4 liters O2 by nasal cannula, hypertension, gastroesophageal reflux disease, peptic ulcer disease, depression, osteoarthritis. PAST SURGICAL HISTORY: Hysterectomy. FAMILY HISTORY: Noncontributory. SOCIAL HISTORY: Social alcohol, no drugs. Has received both COVID vaccine. CURRENT MEDICATIONS: One dose of ceftriaxone, albuterol, morphine, was on Augmentin prior to admission. ALLERGIES: NONSTEROIDALS, AMOXICILLIN, has tolerated Augmentin, erythromycin base. REVIEW OF SYSTEMS: Negative except for above in history of present illness. PHYSICAL EXAMINATION: VITAL SIGNS: Temperature 99.7, pulse 98, respiratory rate 20, blood pressure 156/58, oxygen saturation 98% on 9 liters O2 by nasal cannula, T-max 100.9. GENERAL: Alert, oriented x 3 female, sitting upright in bed, in mild respiratory distress. HEENT: Normocephalic, atraumatic. Anicteric. NECK: Supple. No JVD. LUNGS: Bilateral rhonchi present. No accessory muscle use. HEART: S1, S2. No murmurs. ABDOMEN: Soft, mild discomfort in the right upper quadrant. No rebound or guarding. Bowel sounds present. BACK: No CVA tenderness. EXTREMITIES: No edema, no cyanosis. SKIN: Warm, dry, no generalized rash. NEUROLOGIC: Alert, oriented x 3. Grossly nonfocal. PSYCHIATRIC: Cooperative. PSYCHIATRIC: Appropriate mood and affect. LABORATORY DATA: WBC 25.8, hemoglobin 14.1, hematocrit 42.2, platelets 334. Sodium 136, potassium 3.2, chloride 98, bicarbonate 31, BUN 26, creatinine 0.9, glucose 114, lactate 1.8. Liver function tests normal. Troponin normal. BNP 198, albumin 4.0. Blood gas pH 7.50, pCO2 of 43, pO2 of 50, bicarbonate 34. IMAGING: Chest x-ray as above. Next CT chest as above. KUB pending. UA pending. Blood culture pending. IMPRESSION: 1. Fever. 2. Leucocytosis also on steroids 3. Chronic obstructive pulmonary disease exacerbation.Pulmonary nodule worsened on CT. 4. ALLERGIC REACTION TO LISINOPRIL. 5. Abdominal discomfort. 6. Coronary artery disease. 7. ALLERGIES TO AMOXICILLIN, has tolerated Augmentin well. RECOMMENDATIONS: 1. Restart ceftriaxone and doxycycline. 2. Follow up labs and cultures. 3. UA pending. 4. Consider KUB. 5. Continue supportive care. Thank you for allowing me to participate in this patient's care. If you have any questions, do not hesitate to contact me. Discussed with nursing staff. FLOR MANLEY: Margarita TID: [id number] [facility]
[2021-01-28 23:00] VITALS: BP 117/43
[2021-01-29 03:00] VITALS: BP 98/38
[2021-01-29 07:00] VITALS: BP 115/48
[2021-01-29] MEDS: IPRATRPIUM/ALBUTEROL 0.5/2.5MG 3 ML NEBU. NEB SCH ×3 (07:23→20:26)
[2021-01-29] MEDS: BUDESONIDE 0.5 MG/2 ML NEBU. NEB SCH ×2 (07:23→20:26)
[2021-01-29] MEDS: LACTOBACILLUS RHAMNOSUS GG 1 CAPSULE. PO SCH ×2 (07:37→20:53)
[2021-01-29] MEDS: ASPIRIN CHEWABLE 81 MG TABLET. PO SCH (07:37)
[2021-01-29] MEDS: PANTOPRAZOLE 40 MG TABLET.DR. PO SCH (07:38)
[2021-01-29] MEDS: DOXYCYCLINE HYCLATE 100 MG TABLET PO SCH (07:38)
[2021-01-29] MEDS: oxyCODONE/APAP 5/325 1 TAB TABLET PO SCH ×3 (07:38→20:53)
[2021-01-29] MEDS: guaiFENesin/CODEINE 100mg/10mg 5 ML LIQUID PO PRN ×2 (07:40→20:53)
--- NOTE | 2021-01-29 08:14 | PDOC ---
Infectious Disease Note Subjective: Subjective Patient had nausea and vomiting twice this morning Abdominal pain has improved Has productive greenish-yellow sputum production Denies any chest pain Low-grade fever Vital Signs: Vital Signs Vital Signs Date Time Temp Pulse Resp B/P (MAP) Pulse Ox O2 Delivery O2 Flow Rate FiO2 01/29/21 07:40 Nasal Cannula 4.0 01/29/21 07:24 95 01/29/21 07:00 99.8 81 22 115/48 (70) 99.8 Physical Exam: PHYSICAL EXAM GENERAL: Alert, oriented x 3 female, sitting upright in bed, looks better HEENT: Normocephalic, atraumatic. Anicteric. NECK: Supple. No JVD. LUNGS: Decreased breath sounds, wheezing improved no accessory muscle use. HEART: S1, S2. No murmurs. ABDOMEN: Soft, mild discomfort in the right upper quadrant. No rebound or guarding. Bowel sounds present. BACK: No CVA tenderness. EXTREMITIES: No edema, no cyanosis. SKIN: Warm, dry, no generalized rash. NEUROLOGIC: Alert, oriented x 3. Grossly nonfocal. PSYCHIATRIC: Cooperative. PSYCHIATRIC: Appropriate mood and affect. Medications: Inpatient Meds: Medications reviewed. Labs: Lab Laboratory Tests Test 01/28/21 10:50 Urine Collection Type Unknown Urine Color Yellow Urine Clarity Clear Urine pH 5.5 (<5.0-8.0) Urine Specific [place] 1.025 (1.000-1.030) Urine Protein Negative mg/dL (NEG-TRACE) Urine Glucose (UA) Negative mg/dL (NEG) Urine Ketones (Stick) Negative mg/dL (NEG) Urine Blood Small (NEG) Urine Nitrite Negative (NEG) Urine Bilirubin Negative (NEG) Urine Urobilinogen Dipstick 0.2 mg/dL (0.2 mg/dL) Urine Leukocyte Esterase Negative (NEG) Urine RBC 3-5 /HPF (0-2) Urine WBC 1-4 /HPF (0-4) Urine Squamous Epithelial Cells Few /LPF Urine Bacteria Few /HPF (0-FEW) Objective: Assessment: 1. Fever. Pattern improving 2. Leucocytosis also on steroids 3. Chronic obstructive pulmonary disease exacerbation.Pulmonary nodule worsened on CT. 4. ALLERGIC REACTION TO LISINOPRIL. 5. Abdominal discomfort. Improved but now with nausea and vomiting 6. Coronary artery disease. 7. ALLERGIES TO AMOXICILLIN, has tolerated Augmentin well. Plan: Plan of Care DC ceftriaxone and doxy Start Zosyn Maintain aspiration precautions KUB Monitor labs and cultures Supportive care BLU TOMAS MD Jan 29, 2021 08:14
[2021-01-29] MEDS ORDERED: LISINOPRIL 5 MG TABLET. PO SCH (09:00)
--- NOTE | 2021-01-29 10:04 | PDOC ---
PULMONARY PROGRESS NOTES DATE: 01/29/21 TIME: 10:04 Subjective Patient reports that she is feeling much better today, remains on 4 L nasal cannula No overnight concerns No increased shortness of breath, reports productive cough Vitals Vital Signs Date Time Temp Pulse Resp B/P (MAP) Pulse Ox O2 Delivery O2 Flow Rate FiO2 01/29/21 07:40 Nasal Cannula 4.0 01/29/21 07:24 95 01/29/21 07:00 99.8 81 22 115/48 (70) 99.8 ROS: No Nausea, No Chest Pain, No Abdominal Pain, No Increase Cough General: Alert HEENT: Other Lungs: Clear Cardiovascular: S1, S2 Abdomen: Soft, Non-tender Neuro Exam: Alert, Oriented Extremities: No Edema Skin: Warm, Dry Labs Laboratory Tests Test 01/28/21 03:03 01/28/21 03:55 01/28/21 10:50 Bedside Venous pH 7.50 (7.32-7.42) Bedside Venous pCO2 43 mmHg (41-51) Bedside Venous pO2 50 mmHg (20-40) Venous Blood HCO3 34 mmol/L (24-28) POC Venous O2 Saturation (Olga Lidia) 88 % Bedside FiO2 21.0 White Blood Count 25.8 x10^3/uL (4.0-11.0) Red Blood Count 4.70 x10^6/uL (3.50-5.40) Hemoglobin 14.1 g/dL (12.0-15.5) Hematocrit 42.2 % (36.0-47.0) Mean Corpuscular Volume 90 fL (79-100) Mean Corpuscular Hemoglobin 30 pg (25-35) Mean Corpuscular Hemoglobin Concent 34 g/dL (31-37) Red Cell Distribution Width 13.5 % (11.5-14.5) Platelet Count 334 x10^3/uL (140-400) Neutrophils (%) (Auto) 84 % (31-73) Lymphocytes (%) (Auto) 9 % (24-48) Monocytes (%) (Auto) 6 % (0-9) Eosinophils (%) (Auto) 0 % (0-3) Basophils (%) (Auto) 0 % (0-3) Neutrophils # (Auto) 21.7 x10^3/uL (1.8-7.7) Lymphocytes # (Auto) 2.4 x10^3/uL (1.0-4.8) Monocytes # (Auto) 1.6 x10^3/uL (0.0-1.1) Eosinophils # (Auto) 0.0 x10^3/uL (0.0-0.7) Basophils # (Auto) 0.1 x10^3/uL (0.0-0.2) Segmented Neutrophils % 73 % (35-66) Band Neutrophils % 3 % (0-9) Lymphocytes % 16 % (24-48) Monocytes % 7 % (0-10) Eosinophils % 1 % (0-5) Platelet Estimate Adequate (ADEQUATE) Sodium Level 136 mmol/L (136-145) Potassium Level 3.2 mmol/L (3.5-5.1) Chloride Level 98 mmol/L (98-107) Carbon Dioxide Level 31 mmol/L (21-32) Anion Gap 7 (6-14) Blood Urea Nitrogen 26 mg/dL (7-20) Creatinine 0.9 mg/dL (0.6-1.0) Estimated GFR (Cockcroft-Gault) 61.5 BUN/Creatinine Ratio 29 (6-20) Glucose Level 114 mg/dL (70-99) Lactic Acid Level 1.8 mmol/L (0.4-2.0) Calcium Level 9.6 mg/dL (8.5-10.1) Total Bilirubin 0.5 mg/dL (0.2-1.0) Aspartate Amino Transf (AST/SGOT) 18 U/L (15-37) Alanine Aminotransferase (ALT/SGPT) 27 U/L (14-59) Alkaline Phosphatase 140 U/L (46-116) Troponin I Quantitative < 0.017 ng/mL (0.000-0.055) OY-Haf-E-Type Natriuretic Peptide 198 pg/mL (0-124) Total Protein 7.3 g/dL (6.4-8.2) Albumin 4.0 g/dL (3.4-5.0) Albumin/Globulin Ratio 1.2 (1.0-1.7) Triglycerides Level 87 mg/dL (0-150) Cholesterol Level 253 mg/dL (0-200) LDL Cholesterol, Calculated 136 mg/dL (0-100) VLDL Cholesterol, Calculated 17 mg/dL (0-40) Non-HDL Cholesterol Calculated 153 mg/dL (0-129) HDL Cholesterol 100 mg/dL (40-60) Cholesterol/HDL Ratio 2.5 Urine Collection Type Unknown Urine Color Yellow Urine Clarity Clear Urine pH 5.5 (<5.0-8.0) Urine Specific [place] 1.025 (1.000-1.030) Urine Protein Negative mg/dL (NEG-TRACE) Urine Glucose (UA) Negative mg/dL (NEG) Urine Ketones (Stick) Negative mg/dL (NEG) Urine Blood Small (NEG) Urine Nitrite Negative (NEG) Urine Bilirubin Negative (NEG) Urine Urobilinogen Dipstick 0.2 mg/dL (0.2 mg/dL) Urine Leukocyte Esterase Negative (NEG) Urine RBC 3-5 /HPF (0-2) Urine WBC 1-4 /HPF (0-4) Urine Squamous Epithelial Cells Few /LPF Urine Bacteria Few /HPF (0-FEW) Laboratory Tests Test 01/28/21 10:50 Urine Collection Type Unknown Urine Color Yellow Urine Clarity Clear Urine pH 5.5 (<5.0-8.0) Urine Specific [place] 1.025 (1.000-1.030) Urine Protein Negative mg/dL (NEG-TRACE) Urine Glucose (UA) Negative mg/dL (NEG) Urine Ketones (Stick) Negative mg/dL (NEG) Urine Blood Small (NEG) Urine Nitrite Negative (NEG) Urine Bilirubin Negative (NEG) Urine Urobilinogen Dipstick 0.2 mg/dL (0.2 mg/dL) Urine Leukocyte Esterase Negative (NEG) Urine RBC 3-5 /HPF (0-2) Urine WBC 1-4 /HPF (0-4) Urine Squamous Epithelial Cells Few /LPF Urine Bacteria Few /HPF (0-FEW) Medications Active Scripts Medications Dose Route/Sig Max Daily Dose Days Date Category Codeine-Guaifen 10-100 mg/5 ml (Guaifenesin/Codeine Phosphate) 120 Ml Liquid 120 Ml PO TID PRN PRN 7 03/11/19 Rx Augmentin 500-125 Tablet (Amoxicillin/Potassium Clav) 1 Each Tablet 1 Tab PO BID 03/11/19 Rx Pulmicort Flexhaler (Budesonide) 180 Mcg Aer.pow.ba 2 Puff IH BID 03/11/19 Rx Mucinex Dm Er 600-30 Mg Tablet (Guaifenesin/Dextromethorphan) 1 Each Tab.er.12h 1 Tab PO BID MDD 1 03/11/19 Rx Percocet 5-325 Mg Tablet (Oxycodone/Acetaminophen) 1 Each Tablet 1 Tab PO TID MDD 1 03/11/19 Rx Flovent 100MCG Diskus (Fluticasone Propionate) 100 Mcg Disk.w.dev 1 Puff IH BID 07/11/17 Reported Serevent Diskus (Salmeterol Xinafoate) 50 Mcg Disk.w.dev 50 Mcg IH BID 07/09/14 Reported Duoneb 0.5-3(2.5) Mg/3 Ml (Albuterol/Ipratropium) 3 Ml Ampul.neb 3 Ml IH TID 07/09/14 Reported Aspirin 81 Mg Tab.chew 1 Tab PO DAILY 07/09/14 Reported Lisinopril 2.5 Mg Tablet 1 Tab PO HS 07/09/14 Reported Montelukast Sodium Tablet (Montelukast Sodium) 10 Mg Tablet 10 Mg PO HS 07/09/14 Reported Proair Hfa Inhaler (Albuterol Sulfate) 8.5 Gm Hfa.aer.ad 2 Puff IH PRN Q4-6HRS PRN 07/09/14 Reported Impression . ASSESSMENT AND PLAN: 1. Acute on chronic hypoxic respiratory failure secondary to acute exacerbation of chronic obstructive pulmonary disease and acute bronchitis. 2. Abnormal CT chest dated 01/28/2021 with increase in the size of the nodule of 1.4 cm compared to the previous 0.7 cm in the right upper lobe. This is the same nodule, which was 15 mm in size in 01/2020. PET scan in the past had not shown any hypermetabolic activity. There are other bilateral lung nodules as well. The nodules have been waxing and waning and likely inflammatory in etiology. We will consider repeating a PET scan as an outpatient. Her blood test for cancer antigens was negative previously. 3. The patient with severe oxygen dependent chronic obstructive pulmonary disease. 4. Abdominal distention per primary care physician. Plan . RECOMMENDATIONS: Continue supplemental oxygen to keep oxygen saturations greater than 92% Continue bronchodilators including Pulmicort Continue antibiotics per infectious disease CT of chest reviewed Patient will need to follow-up in the office with Dr. Joy for a repeat PET scan DVT/GI prophylaxis Discussed with BENJAMIN BAIRD MD Jan 29, 2021 10:04
[2021-01-29 10:25] VITALS: BP 92/42
--- NOTE | 2021-01-29 10:51 | RAD ---
EXAM: Abdomen, single view. HISTORY: Nausea and vomiting. COMPARISON: None. FINDINGS: A frontal view of the abdomen is obtained. There is gas and stool within the colon. No abno rmally dilated loop of small bowel seen. There is no transition point to suggest obstruction. There i s incidental degenerative change at the lower lumbar levels. IMPRESSION: Nonobstructive bowel gas pattern. Electronically signed by: Marah Alfaro MD (01/29/2021 10:48 AM) [id number]
--- NOTE | 2021-01-29 11:42 | NUR ---
SS following up with discharge planning. SS reviewed pt chart and discussed with pt RN. Pt is currently requiring oxygen at four liters nasal canula. Pt has home oxygen. Pt on IV Zosyn. Discharge plan is currently to home when medically ready. SS will continue to follow for discharge planning.
[2021-01-29] MEDS: PIPERACILLIN/TAZOBACTAM 3.375 GM in IV NORMAL SALINE 50ML 50 ML IV SCH ×2 (12:39→18:04)
--- NOTE | 2021-01-29 12:44 | PDOC ---
Date of Service: DATE: 01/29/21 TIME: 12:40 Subjective: Subjective: Feels better - abdominal pain is better. Vomited after breakfast this morning but going to try some lunch she thinks. [place] queasy yesterday. Objective: Objective: D/w nurse - vomiting possibly related to significant coughing, also took pills on an empty stomach. Vital Signs: Vital Signs Date Time Temp Pulse Resp B/P (MAP) Pulse Ox O2 Delivery O2 Flow Rate FiO2 01/29/21 11:51 96 Nasal Cannula 4.0 01/29/21 10:25 98.0 72 18 92/42 (59) 98.0 Labs: BLOOD CULTURE Preliminary NO GROWTH AFTER 1 DAY Imaging: KUB 01/29 IMPRESSION: Nonobstructive bowel gas pattern. PE: GEN: NAD - does appear more comfortable today LUNGS: loud coughing, NC HEART: RRR ABD: soft, non-tender, BS+ NEURO/PSYCH: A & O 3 A/P: COPD exacerbation GERD -- Try lunch, observe. Continue PPI. Justicifation of Admission Dx: Justifications for Admission: Justification of Admission Dx: Yes EDWARDO MORRISON Jan 29, 2021 12:44
[2021-01-29] MEDS ORDERED: POTASSIUM CHLORIDE 20 MEQ TABLET.ER. PO ONE (13:00)
--- NOTE | 2021-01-29 14:03 | PDOC ---
[facility] PROGRESS NOTE Date of Service DOS: DATE: 01/29/21 TIME: 13:59 Chief Complaint Chief Complaint acute on chronic COPD with acute exacerbation, acute on chronic hypercarbic and hypoxic respiratory failure SIRS, sepsis new abdominal distention, CAD hx, prior stent, CHF stable weakness, and debilit, PT and OT Vitals/I&O Vitals/I&O: Vital Signs Date Time Temp Pulse Resp B/P (MAP) Pulse Ox O2 Delivery O2 Flow Rate FiO2 01/29/21 11:51 96 Nasal Cannula 4.0 01/29/21 10:25 98.0 72 18 92/42 (59) 98.0 I & O 01/28/21 01/28/21 01/29/21 15:02 23:02 07:02 Intake Total 120 ml 750 ml 100 ml Balance 120 ml 750 ml 100 ml Physical Exam Physical Exam: GENERAL: Alert, oriented x 3 female, sitting upright in bed, looks better HEENT: Normocephalic, atraumatic. Anicteric. NECK: Supple. No JVD. LUNGS: Decreased breath sounds, wheezing improved no accessory muscle use. HEART: S1, S2. No murmurs. ABDOMEN: Soft, mild discomfort in the right upper quadrant. No rebound or guarding. Bowel sounds present. BACK: No CVA tenderness. EXTREMITIES: No edema, no cyanosis. SKIN: Warm, dry, no generalized rash. NEUROLOGIC: Alert, oriented x 3. Grossly nonfocal. PSYCHIATRIC: Cooperative. PSYCHIATRIC: Appropriate mood and affect. General: Alert, Oriented X3, Cooperative, mild distress Heart: Regular rate (SR), Other (distant heart sounds) Lungs: Clear Abdomen: Soft, No tenderness Extremities: No cyanosis, No edema Skin: No breakdown, No significant lesion Review of Systems Review of Systems: no nv..d Assessment and Plan Assessmemt and Plan Problems Medical Problems: (1) Sepsis Status: Acute Comment Review of Relevant I have reviewed the following items aileen (where applicable) has been applied. Medications: Current Medications Medications (Trade) Dose Ordered Sig/Kenan Route PRN Reason Start Time Stop Time Status Last Admin Dose Admin Albuterol/ Ipratropium (Duoneb) 3 ml TID NEB 01/28/21 14:00 01/29/21 11:51 Montelukast Sodium (Singulair) 10 mg HS PO 01/28/21 21:00 01/28/21 20:41 Oxycodone/ Acetaminophen (Percocet 5/325) 1 tab TID PO 01/28/21 14:00 01/29/21 07:38 Doxycycline Hyclate (Vibra-Tab) 100 mg BID PO 01/28/21 21:00 01/29/21 08:55 DC 01/29/21 07:38 Ceftriaxone Sodium (Rocephin) 2 gm Q24H IVP 01/28/21 21:00 01/29/21 08:55 DC 01/28/21 20:40 Atorvastatin Calcium (Lipitor) 20 mg QHS PO 01/28/21 21:00 01/28/21 20:41 Pantoprazole Sodium (Protonix) 40 mg DAILYAC PO 01/29/21 07:30 01/29/21 07:38 Lactobacillus Rhamnosus (Culturelle) 1 cap BID PO 01/28/21 21:00 01/29/21 07:37 Piperacillin Sod/ Tazobactam Sod 3.375 gm/Sodium Chloride 50 ml @ 100 mls/hr Q6HRS IV 01/29/21 12:00 01/29/21 12:39 Justifications for Admission Other Justification RONNY BARRERA MD Jan 29, 2021 14:03
[2021-01-29 15:16] VITALS: BP 155/56
[2021-01-29 19:00] VITALS: BP 121/51
[2021-01-29] MEDS: MONTELUKAST SODIUM 10 MG TABLET. PO SCH (20:53)
[2021-01-29] MEDS: ATORVASTATIN CALCIUM 20 MG TABLET PO SCH (20:53)
[2021-01-29 23:00] VITALS: BP 126/50
[2021-01-30] MEDS: PIPERACILLIN/TAZOBACTAM 3.375 GM in IV NORMAL SALINE 50ML 50 ML IV SCH ×4 (00:09→17:49)
[2021-01-30 02:49] VITALS: BP 94/50
[2021-01-30] MEDS: guaiFENesin/CODEINE 100mg/10mg 5 ML LIQUID PO PRN ×3 (06:06→22:45)
[2021-01-30 07:00] VITALS: BP 133/64
[2021-01-30] MEDS: IPRATRPIUM/ALBUTEROL 0.5/2.5MG 3 ML NEBU. NEB SCH ×3 (07:33→20:05)
[2021-01-30] MEDS: BUDESONIDE 0.5 MG/2 ML NEBU. NEB SCH ×2 (07:33→20:05)
--- NOTE | 2021-01-30 07:52 | PDOC ---
Infectious Disease Note Subjective: Subjective Patient does not feel today has leg pain and joint pain Abdominal pain has improved Has productive greenish-yellow sputum production Denies any chest pain Low-grade fever T 100.2 Vital Signs: Vital Signs Vital Signs Date Time Temp Pulse Resp B/P (MAP) Pulse Ox O2 Delivery O2 Flow Rate FiO2 01/30/21 07:41 96 Nasal Cannula 4.0 01/30/21 02:49 99.2 84 18 94/50 (65) 99.2 Physical Exam: PHYSICAL EXAM GENERAL: Alert, oriented x 3 female,lying in bed comfortable HEENT: Normocephalic, atraumatic. Anicteric. NECK: Supple. No JVD. LUNGS: Decreased breath sounds, wheezing improved no accessory muscle use. HEART: S1, S2. No murmurs. ABDOMEN: Soft, Nondistended No rebound or guarding. Bowel sounds present. BACK: No CVA tenderness. EXTREMITIES: No edema, no cyanosis. SKIN: Warm, dry, no generalized rash. NEUROLOGIC: Alert, oriented x 3. Grossly nonfocal. PSYCHIATRIC: Cooperative. PSYCHIATRIC: Appropriate mood and affect. Medications: Inpatient Meds: Medications reviewed. Objective: Assessment: 1. Fever. Pattern improving 2. Leucocytosis also on steroids 3. Chronic obstructive pulmonary disease exacerbation.Pulmonary nodule worsened on CT. 4. ALLERGIC REACTION TO LISINOPRIL. 5. Abdominal discomfort. Improved but now with nausea and vomiting 6. Coronary artery disease. 7. ALLERGIES TO AMOXICILLIN, has tolerated Augmentin well. Plan: Plan of Care Cont Zosyn restart doxycycline Maintain aspiration precautions KUB reviewed Monitor labs and cultures Supportive care BLU TOMAS MD January 30, 2021 07:52
[2021-01-30] MEDS: PANTOPRAZOLE 40 MG TABLET.DR. PO SCH (08:42)
[2021-01-30] MEDS: oxyCODONE/APAP 5/325 1 TAB TABLET PO SCH ×3 (08:42→20:41)
[2021-01-30] MEDS: LACTOBACILLUS RHAMNOSUS GG 1 CAPSULE. PO SCH ×2 (08:42→20:41)
[2021-01-30] MEDS: ASPIRIN CHEWABLE 81 MG TABLET. PO SCH (08:43)
[2021-01-30] MEDS: DOXYCYCLINE HYCLATE 100 MG TABLET PO SCH ×2 (09:32→20:41)
[2021-01-30 11:14] VITALS: BP 105/49
--- NOTE | 2021-01-30 11:20 | PDOC ---
[facility] [facility] PROGRESS NOTE Date of Service DOS: DATE: 01/30/21 TIME: 11:19 Chief Complaint Chief Complaint acute on chronic COPD with acute exacerbation, acute on chronic hypercarbic and hypoxic respiratory failure SIRS, sepsis new abdominal distention, CAD hx, prior stent, CHF stable weakness, and debilit, PT and OT History of Present Illness History of Present Illness temp elevation to 100.2 this AM, no cx done, ID following, abx changed to Add doxy to zosyn still cough, some sputum may DC telemetry, as stable Vitals/I&O Vitals/I&O: Vital Signs Date Time Temp Pulse Resp B/P (MAP) Pulse Ox O2 Delivery O2 Flow Rate FiO2 01/30/21 11:14 99.1 91 24 105/49 (67) 94 Nasal Cannula 3.5 99.1 I & O 0 01/29/21 01/29/21 01/30/21 15:00 23:00 07:00 Intake Total 340 ml 1070 ml 500 ml Output Total 250 ml 250 ml 400 ml Balance 90 ml 820 ml 100 ml Physical Exam Physical Exam: GENERAL: Alert, oriented x 3 female,lying in bed comfortable HEENT: Normocephalic, atraumatic. Anicteric. NECK: Supple. No JVD. LUNGS: Decreased breath sounds, wheezing improved no accessory muscle use. HEART: S1, S2. No murmurs. ABDOMEN: Soft, Nondistended No rebound or guarding. Bowel sounds present. BACK: No CVA tenderness. EXTREMITIES: No edema, no cyanosis. SKIN: Warm, dry, no generalized rash. NEUROLOGIC: Alert, oriented x 3. Grossly nonfocal. PSYCHIATRIC: Cooperative. PSYCHIATRIC: Appropriate mood and affect. General: Alert, Oriented X3, Cooperative, mild distress Heart: Regular rate (SR), Other (distant heart sounds) Lungs: Clear Abdomen: Soft, No tenderness Extremities: No cyanosis, No edema Skin: No breakdown, No significant lesion Assessment and Plan Assessmemt and Plan Problems Medical Problems: (1) Sepsis Status: Acute Comment Review of Relevant I have reviewed the following items aileen (where applicable) has been applied. Medications: Current Medications Medications (Trade) Dose Ordered Sig/Kenan Route PRN Reason Start Time Stop Time Status Last Admin Dose Admin Piperacillin Sod/ Tazobactam Sod 3.375 gm/Sodium Chloride 50 ml @ 100 mls/hr Q6HRS IV 4/30/21 12:00 01/30/21 06:02 Potassium Chloride (Klor-Con) 40 meq 1X ONCE PO 01/29/21 13:00 01/29/21 13:01 DC 01/29/21 14:04 Doxycycline Hyclate (Vibra-Tab) 100 mg BID PO 01/30/21 09:00 01/30/21 09:32 Justifications for Admission Other Justification RONNY BARRERA MD January 30, 2021 11:20
--- NOTE | 2021-01-30 11:32 | PDOC ---
PULMONARY PROGRESS NOTES DATE: 01/30/21 TIME: 11:31 Subjective remains on 4 L nasal cannula No increased shortness of breath, no increased cough fever overnight Vitals Vital Signs Date Time Temp Pulse Resp B/P (MAP) Pulse Ox O2 Delivery O2 Flow Rate FiO2 01/30/21 11:14 99.1 91 24 105/49 (67) 94 Nasal Cannula 3.5 99.1 ROS: No Nausea, No Chest Pain, No Abdominal Pain, No Increase Cough General: Alert, Oriented X4 HEENT: Other Lungs: Clear Cardiovascular: S1, S2 Abdomen: Soft, Non-tender Neuro Exam: Alert, Oriented Extremities: No Edema Skin: Warm, Dry Medications Active Scripts Medications Dose Route/Sig Max Daily Dose Days Date Category Codeine-Guaifen 10-100 mg/5 ml (Guaifenesin/Codeine Phosphate) 120 Ml Liquid 120 Ml PO TID PRN PRN 7 03/11/19 Rx Augmentin 500-125 Tablet (Amoxicillin/Potassium Clav) 1 Each Tablet 1 Tab PO BID 03/11/19 Rx Pulmicort Flexhaler (Budesonide) 180 Mcg Aer.pow.ba 2 Puff IH BID 03/11/19 Rx Mucinex Dm Er 600-30 Mg Tablet (Guaifenesin/Dextromethorphan) 1 Each Tab.er.12h 1 Tab PO BID MDD 1 03/11/19 Rx Percocet 5-325 Mg Tablet (Oxycodone/Acetaminophen) 1 Each Tablet 1 Tab PO TID MDD 1 03/11/19 Rx Flovent 100MCG Diskus (Fluticasone Propionate) 100 Mcg Disk.w.dev 1 Puff IH BID 07/11/17 Reported Serevent Diskus (Salmeterol Xinafoate) 50 Mcg Disk.w.dev 50 Mcg IH BID 07/09/14 Reported Duoneb 0.5-3(2.5) Mg/3 Ml (Albuterol/Ipratropium) 3 Ml Ampul.neb 3 Ml IH TID 07/09/14 Reported Aspirin 81 Mg Tab.chew 1 Tab PO DAILY 07/09/14 Reported Lisinopril 2.5 Mg Tablet 1 Tab PO HS 07/09/14 Reported Montelukast Sodium Tablet (Montelukast Sodium) 10 Mg Tablet 10 Mg PO HS 07/09/14 Reported Proair Hfa Inhaler (Albuterol Sulfate) 8.5 Gm Hfa.aer.ad 2 Puff IH PRN Q4-6HRS PRN 07/09/[address] chest IMPRESSION: 1. There is an enlarging pulmonary nodule in the right upper lobe that now measures up to 1.4 cm versus 0.7 cm previously. Findings are suspicious for malignancy. PET CT could better evaluate. 2. Multiple additional noncalcified pulmonary nodules, the majority of which are stable. There is a somewhat vague nodule in the left upper lobe that is new. Continued follow-up imaging to ensure stability. 3. Emphysema with bibasilar scarring is bronchial wall thickening. 4. Coronary artery calcifications and mild ectasia of the ascending thoracic aorta. 5. Borderline enlarged mediastinal lymph nodes, nonspecific Impression . ASSESSMENT AND PLAN: 1. Acute on chronic hypoxic respiratory failure secondary to acute exacerbation of chronic obstructive pulmonary disease and acute bronchitis. 2. Abnormal CT chest dated 01/28/2021 with increase in the size of the nodule of 1.4 cm compared to the previous 0.7 cm in the right upper lobe. This is the same nodule, which was 15 mm in size in 01/2020. PET scan in the past had not shown any hypermetabolic activity. There are other bilateral lung nodules as well. The nodules have been waxing and waning and likely inflammatory in etiology. We will consider repeating a PET scan as an outpatient. Her blood test for cancer antigens was negative previously. 3. The patient with severe oxygen dependent chronic obstructive pulmonary disease. 4. Abdominal distention per primary care physician. Plan . RECOMMENDATIONS: Continue supplemental oxygen to keep oxygen saturations greater than 92% Continue bronchodilators and Pulmicort Continue antibiotics per infectious disease-- follow cultures CT of chest reviewed Patient will need to follow-up in the office with Dr. Joy for a repeat PET scan DVT/GI prophylaxis Discussed with BENJAMIN BAIRD MD January 30, 2021 11:32
[2021-01-30 14:42] VITALS: BP 106/46
[2021-01-30 19:40] VITALS: BP 159/69
[2021-01-30] MEDS: ATORVASTATIN CALCIUM 20 MG TABLET PO SCH (20:41)
[2021-01-30] MEDS: MONTELUKAST SODIUM 10 MG TABLET. PO SCH (20:41)
[2021-01-30 22:56] VITALS: BP 125/62
[2021-01-31 02:59] VITALS: BP 113/42
[2021-01-31] MEDS: PIPERACILLIN/TAZOBACTAM 3.375 GM in IV NORMAL SALINE 50ML 50 ML IV SCH ×5 (05:41→22:59)
[2021-01-31 07:00] VITALS: BP 141/52
[2021-01-31] MEDS: IPRATRPIUM/ALBUTEROL 0.5/2.5MG 3 ML NEBU. NEB SCH ×3 (07:29→20:43)
[2021-01-31] MEDS: BUDESONIDE 0.5 MG/2 ML NEBU. NEB SCH ×2 (07:29→20:43)
[2021-01-31] MEDS: PANTOPRAZOLE 40 MG TABLET.DR. PO SCH (07:55)
--- NOTE | 2021-01-31 08:03 | PDOC ---
Infectious Disease Note Subjective: Subjective Patient denies any nausea or vomiting Abdominal pain has improved Denies any chest pain T max 100.5 Vital Signs: Vital Signs Vital Signs Date Time Temp Pulse Resp B/P (MAP) Pulse Ox O2 Delivery O2 Flow Rate FiO2 01/31/21 07:36 98 Nasal Cannula 4.0 01/31/21 07:00 98.2 85 24 141/52 (81) 98.2 Physical Exam: PHYSICAL EXAM GENERAL: Alert, oriented x 3 female,lying in bed comfortable HEENT: Normocephalic, atraumatic. Anicteric. NECK: Supple. No JVD. LUNGS: Decreased breath sounds, wheezing improved no accessory muscle use. HEART: S1, S2. No murmurs. ABDOMEN: Soft, Nondistended No rebound or guarding. Bowel sounds present. BACK: No CVA tenderness. EXTREMITIES: No edema, no cyanosis. SKIN: Warm, dry, no generalized rash. NEUROLOGIC: Alert, oriented x 3. Grossly nonfocal. PSYCHIATRIC: Cooperative. PSYCHIATRIC: Appropriate mood and affect. Medications: Inpatient Meds: Medications reviewed. Objective: Assessment: 1. Fever. 2. Leucocytosis also on steroids 3. Chronic obstructive pulmonary disease exacerbation.Pulmonary nodule worsened on CT. 4. ALLERGIC REACTION TO LISINOPRIL. 5. Abdominal discomfort. Improved but now with nausea and vomiting 6. Coronary artery disease. 7. ALLERGIES TO AMOXICILLIN, has tolerated Augmentin well. Plan: Plan of Care Cont Zosyn and doxycycline Blood cultures negative Maintain aspiration precautions Urine for strep and Legionella antigen Monitor labs and cultures Supportive care BLU TOMAS MD January 31, 2021 08:03
[2021-01-31] MEDS: LACTOBACILLUS RHAMNOSUS GG 1 CAPSULE. PO SCH ×2 (09:18→20:29)
[2021-01-31] MEDS: DOXYCYCLINE HYCLATE 100 MG TABLET PO SCH ×2 (09:18→20:29)
[2021-01-31] MEDS: oxyCODONE/APAP 5/325 1 TAB TABLET PO SCH ×3 (09:19→20:29)
[2021-01-31] MEDS: ASPIRIN CHEWABLE 81 MG TABLET. PO SCH (09:22)
[2021-01-31] MEDS: guaiFENesin/CODEINE 100mg/10mg 5 ML LIQUID PO PRN ×2 (09:35→20:29)
[2021-01-31 11:00] VITALS: BP 103/53
--- NOTE | 2021-01-31 13:11 | RAD ---
XR CHEST 1V Clinical History: Reason: sob/fever / Spl. Instructions: / History: Technique: AP view of the chest was obtained at 01/31/2021 12:53 PM. Comparison: January 28, 2021. Findings: The lungs are hyperinflated. The pulmonary vessels appear normal. There is patchy reticular opacities of the lungs. There is blunting of the left costophrenic angle. Impression: Mild left effusion and vague bilateral infiltrates. This could be atypical pneumonia but appears jareth lar to the prior study. Electronically signed by: Jamie Jain III, MD (01/31/2021 1:08 PM) STEVE
--- NOTE | 2021-01-31 14:29 | PDOC ---
PULMONARY PROGRESS NOTES DATE: 01/31/21 TIME: 14:28 Subjective remains on 4 L nasal cannula No increased shortness of breath, no increased cough low grade fever overnight Vitals Vital Signs Date Time Temp Pulse Resp B/P (MAP) Pulse Ox O2 Delivery O2 Flow Rate FiO2 01/31/21 12:11 98 Nasal Cannula 3.5 01/31/21 11:00 99.0 69 22 103/53 (70) 99.0 ROS: No Nausea, No Chest Pain, No Abdominal Pain, No Increase Cough General: Alert, Oriented X4 HEENT: Other Lungs: Clear Cardiovascular: S1, S2 Abdomen: Soft, Non-tender Neuro Exam: Alert, Oriented Extremities: No Edema Skin: Warm, Dry Medications Active Scripts Medications Dose Route/Sig Max Daily Dose Days Date Category Codeine-Guaifen 10-100 mg/5 ml (Guaifenesin/Codeine Phosphate) 120 Ml Liquid 120 Ml PO TID PRN PRN 7 03/11/19 Rx Augmentin 500-125 Tablet (Amoxicillin/Potassium Clav) 1 Each Tablet 1 Tab PO BID 03/11/19 Rx Pulmicort Flexhaler (Budesonide) 180 Mcg Aer.pow.ba 2 Puff IH BID 03/11/19 Rx Mucinex Dm Er 600-30 Mg Tablet (Guaifenesin/Dextromethorphan) 1 Each Tab.er.12h 1 Tab PO BID MDD 1 03/11/19 Rx Percocet 5-325 Mg Tablet (Oxycodone/Acetaminophen) 1 Each Tablet 1 Tab PO TID MDD 1 03/11/19 Rx Flovent 100MCG Diskus (Fluticasone Propionate) 100 Mcg Disk.w.dev 1 Puff IH BID 07/11/17 Reported Serevent Diskus (Salmeterol Xinafoate) 50 Mcg Disk.w.dev 50 Mcg IH BID 07/09/14 Reported Duoneb 0.5-3(2.5) Mg/3 Ml (Albuterol/Ipratropium) 3 Ml Ampul.neb 3 Ml IH TID 07/09/14 Reported Aspirin 81 Mg Tab.chew 1 Tab PO DAILY 07/09/14 Reported Lisinopril 2.5 Mg Tablet 1 Tab PO HS 07/09/14 Reported Montelukast Sodium Tablet (Montelukast Sodium) 10 Mg Tablet 10 Mg PO HS 07/09/14 Reported Proair Hfa Inhaler (Albuterol Sulfate) 8.5 Gm Hfa.aer.ad 2 Puff IH PRN Q4-6HRS PRN 07/09/[address] chest IMPRESSION: 1. There is an enlarging pulmonary nodule in the right upper lobe that now measures up to 1.4 cm versus 0.7 cm previously. Findings are suspicious for malignancy. PET CT could better evaluate. 2. Multiple additional noncalcified pulmonary nodules, the majority of which are stable. There is a somewhat vague nodule in the left upper lobe that is new. Continued follow-up imaging to ensure stability. 3. Emphysema with bibasilar scarring is bronchial wall thickening. 4. Coronary artery calcifications and mild ectasia of the ascending thoracic aorta. 5. Borderline enlarged mediastinal lymph nodes, nonspecific Impression . ASSESSMENT AND PLAN: 1. Acute on chronic hypoxic respiratory failure secondary to acute exacerbation of chronic obstructive pulmonary disease and acute bronchitis. 2. Abnormal CT chest dated 01/28/2021 with increase in the size of the nodule of 1.4 cm compared to the previous 0.7 cm in the right upper lobe. This is the same nodule, which was 15 mm in size in 01/2020. PET scan in the past had not shown any hypermetabolic activity. There are other bilateral lung nodules as well. The nodules have been waxing and waning and likely inflammatory in etiology. We will consider repeating a PET scan as an outpatient. Her blood test for cancer antigens was negative previously. 3. The patient with severe oxygen dependent chronic obstructive pulmonary disease. 4. Abdominal distention per primary care physician. Plan . RECOMMENDATIONS: Continue supplemental oxygen to keep oxygen saturations greater than 92% obtain CXR today--reviewed Continue bronchodilators and Pulmicort Continue antibiotics per infectious disease-- follow cultures Continue steroids Patient will need to follow-up in the office with Dr. Joy for a repeat PET scan DVT/GI prophylaxis Discussed with BENJAMIN BAIRD MD January 31, 2021 14:29
[2021-01-31 15:00] VITALS: BP 132/43
--- NOTE | 2021-01-31 15:07 | PDOC ---
[facility] PROGRESS NOTE Date of Service DOS: DATE: 01/31/21 TIME: 15:06 Chief Complaint Chief Complaint acute on chronic COPD with acute exacerbation, acute on chronic hypercarbic and hypoxic respiratory failure SIRS, sepsis new abdominal distention, CAD hx, prior stent, CHF stable weakness, and debilit, PT and OT History of Present Illness History of Present Illness fever today, cont abx, follow cultures ID and pulm consuilt following she is fatigued today, but feels like she is breathign about the same still on doxy and zosyn still cough, some sputum may DC telemetry, as stable Vitals/I&O Vitals/I&O: Vital Signs Date Time Temp Pulse Resp B/P (MAP) Pulse Ox O2 Delivery O2 Flow Rate FiO2 01/31/21 12:11 98 Nasal Cannula 3.5 01/31/21 11:00 99.0 69 22 103/53 (70) 99.0 I & O 01/30/21 01/30/21 01/31/21 15:00 23:00 07:00 Intake Total 750 ml 450 ml 0 ml Output Total 350 ml Balance 750 ml 100 ml 0 ml Physical Exam Physical Exam: GENERAL: Alert, oriented x 3 female,lying in bed comfortable HEENT: Normocephalic, atraumatic. Anicteric. NECK: Supple. No JVD. LUNGS: Decreased breath sounds, wheezing improved no accessory muscle use. HEART: S1, S2. No murmurs. ABDOMEN: Soft, Nondistended No rebound or guarding. Bowel sounds present. BACK: No CVA tenderness. EXTREMITIES: No edema, no cyanosis. SKIN: Warm, dry, no generalized rash. NEUROLOGIC: Alert, oriented x 3. Grossly nonfocal. PSYCHIATRIC: Cooperative. PSYCHIATRIC: Appropriate mood and affect. General: Alert, Oriented X3, Cooperative, mild distress Heart: Regular rate (SR), Other (distant heart sounds) Lungs: Clear Abdomen: Soft, No tenderness Extremities: No cyanosis, No edema Skin: No breakdown, No significant lesion Assessment and Plan Assessmemt and Plan Problems Medical Problems: (1) Sepsis Status: Acute Comment Review of Relevant I have reviewed the following items aileen (where applicable) has been applied. Justifications for Admission Other Justification RONNY BARRERA MD January 31, 2021 15:07
[2021-01-31 19:50] VITALS: BP 111/50
[2021-01-31] MEDS: MONTELUKAST SODIUM 10 MG TABLET. PO SCH (20:29)
[2021-01-31] MEDS: ATORVASTATIN CALCIUM 20 MG TABLET PO SCH (20:29)
[2021-01-31 22:46] VITALS: BP 135/64
[2021-02-01 02:48] VITALS: BP 135/60
[2021-02-01 04:17] LABS: BASO % 1 % (0-3); EOS # 0.3 x10^3/uL (0.0-0.7); EOS % 4 % (0-3); HEMATOCRIT 35.4 % (36.0-47.0); HEMOGLOBIN 11.7 g/dL (12.0-15.5); LYMPH # 1.3 x10^3/uL (1.0-4.8); LYMPH % 19 % (24-48); MEAN CORPUSCULAR HEMOGLOBIN 30 pg (25-35); MEAN CORPUSCULAR HGB CONC 33 g/dL (31-37); MEAN CORPUSCULAR VOLUME 91 fL (79-100); MONO # 0.7 x10^3/uL (0.0-1.1); MONO % 11 % (0-9); NEUT # 4.4 x10^3/uL (1.8-7.7); NEUT % 65 % (31-73); PLATELET COUNT 287 x10^3/uL (140-400); RED BLOOD COUNT 3.89 x10^6/uL (3.50-5.40); RED CELL DISTRIBUTION WIDTH 13.2 % (11.5-14.5); WHITE BLOOD COUNT 6.7 x10^3/uL (4.0-11.0)
[2021-02-01 04:32] LABS: CALCIUM 8.7 mg/dL (8.5-10.1); CREATININE 0.7 mg/dL (0.6-1.0); GFR 82.3; POTASSIUM 3.9 mmol/L (3.5-5.1)
[2021-02-01] MEDS: BUDESONIDE 0.5 MG/2 ML NEBU. NEB SCH ×2 (05:13→20:48)
[2021-02-01] MEDS: IPRATRPIUM/ALBUTEROL 0.5/2.5MG 3 ML NEBU. NEB SCH ×3 (05:13→20:48)
[2021-02-01] MEDS: guaiFENesin/CODEINE 100mg/10mg 5 ML LIQUID PO PRN ×3 (05:19→23:36)
[2021-02-01] MEDS: PIPERACILLIN/TAZOBACTAM 3.375 GM in IV NORMAL SALINE 50ML 50 ML IV SCH ×2 (05:20→12:27)
[2021-02-01 07:00] VITALS: BP 137/61
--- NOTE | 2021-02-01 07:47 | NUR ---
Pt transferred to room 412 at this time. Pt transferred with her belongings including o2 tank, tablet with desktop publishing operator, cell phone and several bags. Items and call light in reach. JOSEY Amanda assuming care was in room at time of transfer.
[2021-02-01] MEDS: ASPIRIN CHEWABLE 81 MG TABLET. PO SCH (08:33)
[2021-02-01] MEDS: LACTOBACILLUS RHAMNOSUS GG 1 CAPSULE. PO SCH ×2 (08:33→21:08)
[2021-02-01] MEDS: oxyCODONE/APAP 5/325 1 TAB TABLET PO SCH ×3 (08:33→21:09)
[2021-02-01] MEDS: PANTOPRAZOLE 40 MG TABLET.DR. PO SCH (08:33)
[2021-02-01] MEDS: DOXYCYCLINE HYCLATE 100 MG TABLET PO SCH ×2 (08:34→21:08)
--- NOTE | 2021-02-01 09:01 | PDOC ---
PROGRESS NOTES Date of Service: DATE: 02/01/21 TIME: 09:01 Chief Complaint Chief Complaint IMPRESSION acute on chronic COPD with acute exacerbation, acute on chronic hypercarbic and hypoxic respiratory failure SIRS, sepsis new abdominal distention, CAD hx, prior stent, CHF stable weakness, and debilit, PT and OT Emphysema and multiple pulmonary nodules, none of which show abnormal FDG uptake suspicious for an FDG avid malignancy. Ongoing follow-up would be prudent. follow-up in the office with Dr. Joy for a repeat PET scan O2 SUPPORT OURCE: BLOOD ENTR: 01/28/[address]: CARLA MANCIA DO [facility]: ORDERED: BCULT Procedure Result BLOOD CULTURE Preliminary NO GROWTH AFTER 4 DAYS D/W RN 5- History of Present Illness History of Present Illness fever , cont abx, follow cultures ID and pulm consuilt following she is fatigued but feels like she is breathing about the same Mild left effusion and vague bilateral infiltrates. This could be atypical pneumonia but appears similar to the prior study. still on doxy and zosyn 02-01 still cough, some sputum may DC telemetry, stable follow-up in the office with Dr. Joy for a repeat PET scan O2 SUPPORT 02-01 D/W RN OURCE: BLOOD ENTR: 01/28/21-[address]: CARLA MANCIA DO [facility]: ORDERED: BCULT Procedure Result BLOOD CULTURE Preliminary NO GROWTH AFTER 4 DAYS Vitals Vitals Vital Signs Date Time Temp Pulse Resp B/P (MAP) Pulse Ox O2 Delivery O2 Flow Rate FiO2 02/01/21 08:33 Room Air 4.0 02/01/21 07:00 98.1 78 18 137/61 (83) 94 98.1 Physical Exam Physical Exam GENERAL: Alert, oriented x 3 female,lying in bed comfortable HEENT: Normocephalic, atraumatic. Anicteric. NECK: Supple. No JVD. LUNGS: Decreased breath sounds, wheezing improved no accessory muscle use. HEART: S1, S2. No murmurs. ABDOMEN: Soft, Nondistended No rebound or guarding. Bowel sounds present. BACK: No CVA tenderness. EXTREMITIES: No edema, no cyanosis. SKIN: Warm, dry, no generalized rash. NEUROLOGIC: Alert, oriented x 3. Grossly nonfocal. PSYCHIATRIC: Cooperative. PSYCHIATRIC: Appropriate mood and affect. General: Alert, Oriented X3, Cooperative, mild distress Heart: Regular rate (SR), Other (distant heart sounds) Lungs: Clear Abdomen: Normal bowel sounds, Soft, No tenderness Extremities: No cyanosis, No edema Skin: No breakdown, No significant lesion Labs LABS WHAT IS THE PURPOSE OF AN ADVANCE DIRECTIVE? (ALSO KNOWN A LIVING WILL OR HEALTHCARE POWER OF SCALES INSPECTOR) To articulate and document your wishes concerning medical treatment should you lose decision-making ability. To designate an individual, known as your healthcare agent or proxy, to ensure your wishes are honored should you no longer be able to speak for yourself. This includes, among other things, making decisions about when to withhold or withdraw life-sustaining treatment. WHERE CAN I FIND AN ADVANCE DIRECTIVE FORM? The National [employer] has a list of advance directive forms for every state. We also recommend checking your state governments website for the most up-to-date forms. Find quick links to all state and territory government websites at [employer]. WHAT MUST I INCLUDE IN MY ADVANCE DIRECTIVE? The name and contact information of your healthcare agent/proxy. Answers to specific questions about your preferences for care if you become unable to speak for yourself. The forms and questions asked vary a bit from state to state. A sample question: Do you want to receive artificially provided nutrition or hydration when you are close to and/or permanently unconsciou s? Names and signatures of individuals who witness your signing your advance directive, if required. Not all states require witness signatures. The signature and seal of a public administration professor, if required by your state. Not all states require advance directives to be notarized. [facility] has a list of all advance directive/living will requirements by state. WHAT ELSE WOULD BE GOOD TO INCLUDE IN MY ADVANCE DIRECTIVE? Detailed information about what procedures or types of care you would like to receive and what you wish to avoid at all costs that are not covered by the questions on the form. Would you want to take advantage of all life-support technologies if it would only postpone ? Would you want to use them if you were permanently unconscious? Would you want them if you were going through an advanced progressive illness? More general statements about your values regarding end-of-life care. What does a good mean and look like to you? For that matter, what defines a life worth living? Do you define life by the intake of breath and nutrients? Is it defined by consciousness? At what point do you want to prolong it and at what point do you want to preserve resources for other people? Personal desires for body disposition in essence, what you want to happen to your body when you and plans for any memorial service(s) A list of people who cannot make healthcare decisions for you. Leave no room for ambiguity, which could lead to tensions between loved ones about your care as you are dying. HOW SHOULD I GO ABOUT IDENTIFYING MY HEALTHCARE AGENT/PROXY? An ideal person for the job is someone who: Knows you well. A spouse/partner, a family member, a close friend: all are good candidates. Excels at making difficult decisions under pressure. Is diplomatic and empathetic critical traits for balancing the needs, wants, and unpredictable emotions of a patients loved ones. Isnt afraid to ask tough questions, which invariably arise when discussing a dying individuals end-of-life care. Is easily reachable by email, phone, and/or text. Is or can easily be within physical proximity of where youre likely to receive care. Once Gina identified this person, how do I talk to them about what care I want and dont want at the end of life? Have multiple conversations with your healthcare agent about your wishes. Take them out to tea, have them over for dinner, go to a bar or library. Talk about w hat you want, and make sure you are heard and understood. If you see fit, and if your agent doesnt already know this information, you can share a bit about the personalities of the people who will be most invested in your health outcomes, and how best to handle these folks in situations when emotions will be running high. This can be a serious conversation or it can be full of laughs. You get to decide how the conversation plays out. WHAT IF MY HEALTHCARE AGENT/PROXY IS UNAVAILABLE TO EXECUTE THEIR DUTIES WHEN I AM DYING? It is important to appoint an alternative agent/proxy for exactly this reason. Identify and inform that person as you did your main agent/proxy, and list them as an alternate on your advance directive form. WHAT ABOUT THE TWO WITNESSES? ARE THERE ANY SPECIAL REQUIREMENTS FOR WHO CAN AND CANT SERVE IN THIS ROLE? In most states, witnesses cannot be: Your healthcare agent or proxy; Any of your care providers; Related to you by blood, adoption, or marriage; Entitled to any portion of your estate upon your . dpoa review> 20 min to portal XR CHEST 1V Clinical History: Reason: sob/fever / Spl. Instructions: / History: Technique: AP view of the chest was obtained at 01/31/2021 12:53 PM. Comparison: January 28, 2021. Findings: The lungs are hyperinflated. The pulmonary vessels appear normal. There is patchy reticular opacities of the lungs. There is blunting of the left costophrenic angle. Impression: Mild left effusion and vague bilateral infiltrates. This could be atypical pneu monia but appears similar to the prior study. Electronically signed by: Tia Sanz III, MD (01/31/2021 1:08 PM) [facility] DICTATED and SIGNED BY: TIA SANZ III, MD DATE: 01/31/21 [id number] COMPARISON: Noncontrast CT chest of 02/14/2020 FINDINGS: PET: No abnormal FDG uptake in the spiculated 7 mm peripheral left upper lobe pulmonary nodule (image 82 series 3 of 02/14/2020, now evident on image 102 of series 3 this exam). Max SUV is 1.14, compared with background mediastinal uptake of 2.44. No abnormal FDG uptake in the peripheral right upper lobe pulmonary nodule (reported on image 105 of series 3 on the prior examination, now evident on image 115 of series 3 this exam). Nodule appears to have decreased in size in the interval, from previously reported 15 mm to 7 mm now. Max SUV is 1.29, compared with background mediastinal activity of 2.44. Additional nodules in the lungs (such as a central left apical lung nodule measuring 5.6 mm (image 81 of series 3) also show no abnormal FDG uptake. Background hepatic uptake is 2.86. Focal uptake in the sigmoid colon in the setting of colonic diverticulosis is present to max SUV of 6.73 (fused axial image 125 of series 603). CT: In the head and neck, bilateral carotid calcifications. No adenopathy. In the chest, extensive arterial calcifications. Coronary calcifications. Normal heart size. No pericardial effusion. Panlobular emphysema and scattered calcified and noncalcified pulmonary nodules. No pleural effusion. No mediastinal mass or adenopathy. In the abdomen and pelvis, fusiform ectasia of the infrarenal abdominal aorta to 2.8 x 2.9 cm (AP by transverse) without periaortic soft tissue stranding or fluid. Solid abdominal organs are unremarkable. Bowel shows extensive sigmoid diverticulosis. No findings of obstruction, perforation or acute inflammation. Normal retrocecal appendix. Absent uterus. No adnexal mass. No ascites, free air or fluid collection. No mass or adenopathy. IMPRESSION: 1. Emphysema and multiple pulmonary nodules, none of which show abnormal FDG uptake suspicious for an FDG avid malignancy. Ongoing follow-up would be prudent. 2. Extensive vascular degenerative change, including coronary calcifications and fusiform ectasia of the infrarenal abdominal aorta to 2.8 x 2.9 cm. Electronically signed by: Alexis Nuñez MD (09/14/2020 4:55 PM) [id number] DICTATED and SIGNED BY: ALEXIS NUÑEZ MD DATE: 09/14/20 [id number] Laboratory Tests Test 02/01/21 03:15 White Blood Count 6.7 x10^3/uL (4.0-11.0) Red Blood Count 3.89 x10^6/uL (3.50-5.40) Hemoglobin 11.7 g/dL (12.0-15.5) Hematocrit 35.4 % (36.0-47.0) Mean Corpuscular Volume 91 fL (79-100) Mean Corpuscular Hemoglobin 30 pg (25-35) Mean Corpuscular Hemoglobin Concent 33 g/dL (31-37) Red Cell Distribution Width 13.2 % (11.5-14.5) Platelet Count 287 x10^3/uL (140-400) Neutrophils (%) (Auto) 65 % (31-73) Lymphocytes (%) (Auto) 19 % (24-48) Monocytes (%) (Auto) 11 % (0-9) Eosinophils (%) (Auto) 4 % (0-3) Basophils (%) (Auto) 1 % (0-3) Neutrophils # (Auto) 4.4 x10^3/uL (1.8-7.7) Lymphocytes # (Auto) 1.3 x10^3/uL (1.0-4.8) Monocytes # (Auto) 0.7 x10^3/uL (0.0-1.1) Eosinophils # (Auto) 0.3 x10^3/uL (0.0-0.7) Basophils # (Auto) 0.0 x10^3/uL (0.0-0.2) Sodium Level 141 mmol/L (136-145) Potassium Level 3.9 mmol/L (3.5-5.1) Chloride Level 104 mmol/L (98-107) Carbon Dioxide Level 29 mmol/L (21-32) Anion Gap 8 (6-14) Blood Urea Nitrogen 11 mg/dL (7-20) Creatinine 0.7 mg/dL (0.6-1.0) Estimated GFR (Cockcroft-Gault) 82.3 Glucose Level 98 mg/dL (70-99) Calcium Level 8.7 mg/dL (8.5-10.1) Assessment and Plan Assessmemt and Plan Problems Medical Problems: (1) Sepsis Status: Acute Comment Review of Relevant I have reviewed the following items aileen (where applicable) has been applied. Labs Laboratory Tests Test 02/01/21 03:15 White Blood Count 6.7 x10^3/uL (4.0-11.0) Red Blood Count 3.89 x10^6/uL (3.50-5.40) Hemoglobin 11.7 g/dL (12.0-15.5) Hematocrit 35.4 % (36.0-47.0) Mean Corpuscular Volume 91 fL (79-100) Mean Corpuscular Hemoglobin 30 pg (25-35) Mean Corpuscular Hemoglobin Concent 33 g/dL (31-37) Red Cell Distribution Width 13.2 % (11.5-14.5) Platelet Count 287 x10^3/uL (140-400) Neutrophils (%) (Auto) 65 % (31-73) Lymphocytes (%) (Auto) 19 % (24-48) Monocytes (%) (Auto) 11 % (0-9) Eosinophils (%) (Auto) 4 % (0-3) Basophils (%) (Auto) 1 % (0-3) Neutrophils # (Auto) 4.4 x10^3/uL (1.8-7.7) Lymphocytes # (Auto) 1.3 x10^3/uL (1.0-4.8) Monocytes # (Auto) 0.7 x10^3/uL (0.0-1.1) Eosinophils # (Auto) 0.3 x10^3/uL (0.0-0.7) Basophils # (Auto) 0.0 x10^3/uL (0.0-0.2) Sodium Level 141 mmol/L (136-145) Potassium Level 3.9 mmol/L (3.5-5.1) Chloride Level 104 mmol/L (98-107) Carbon Dioxide Level 29 mmol/L (21-32) Anion Gap 8 (6-14) Blood Urea Nitrogen 11 mg/dL (7-20) Creatinine 0.7 mg/dL (0.6-1.0) Estimated GFR (Cockcroft-Gault) 82.3 Glucose Level 98 mg/dL (70-99) Calcium Level 8.7 mg/dL (8.5-10.1) Laboratory Tests Test 02/01/21 03:15 White Blood Count 6.7 x10^3/uL (4.0-11.0) Red Blood Count 3.89 x10^6/uL (3.50-5.40) Hemoglobin 11.7 g/dL (12.0-15.5) Hematocrit 35.4 % (36.0-47.0) Mean Corpuscular Volume 91 fL (79-100) Mean Corpuscular Hemoglobin 30 pg (25-35) Mean Corpuscular Hemoglobin Concent 33 g/dL (31-37) Red Cell Distribution Width 13.2 % (11.5-14.5) Platelet Count 287 x10^3/uL (140-400) Neutrophils (%) (Auto) 65 % (31-73) Lymphocytes (%) (Auto) 19 % (24-48) Monocytes (%) (Auto) 11 % (0-9) Eosinophils (%) (Auto) 4 % (0-3) Basophils (%) (Auto) 1 % (0-3) Neutrophils # (Auto) 4.4 x10^3/uL (1.8-7.7) Lymphocytes # (Auto) 1.3 x10^3/uL (1.0-4.8) Monocytes # (Auto) 0.7 x10^3/uL (0.0-1.1) Eosinophils # (Auto) 0.3 x10^3/uL (0.0-0.7) Basophils # (Auto) 0.0 x10^3/uL (0.0-0.2) Sodium Level 141 mmol/L (136-145) Potassium Level 3.9 mmol/L (3.5-5.1) Chloride Level 104 mmol/L (98-107) Carbon Dioxide Level 29 mmol/L (21-32) Anion Gap 8 (6-14) Blood Urea Nitrogen 11 mg/dL (7-20) Creatinine 0.7 mg/dL (0.6-1.0) Estimated GFR (Cockcroft-Gault) 82.3 Glucose Level 98 mg/dL (70-99) Calcium Level 8.7 mg/dL (8.5-10.1) Microbiology 01/28/21 Blood Culture - Preliminary, Resulted NO GROWTH AFTER 4 DAYS Medications Current Medications Ceftriaxone Sodium (Rocephin) 1 gm 1X ONCE IVP Last administered on 01/28/21at 04:27; Start 01/28/21 at 04:00; Stop 01/28/21 at 04:01; Status DC Albuterol/ Ipratropium (Duoneb) 3 ml STK-MED ONCE .ROUTE ; Start 01/28/21 at 04:04; Stop 01/28/21 at 04:05; Status DC Morphine Sulfate (Morphine Sulfate) 5 mg 1X ONCE IV Last administered on 01/28/21at 04:28; Start 01/28/21 at 04:15; Stop 01/28/21 at 04:16; Status DC Albuterol/ Ipratropium (Duoneb) 3 ml 1X ONCE NEB Last administered on 01/28/21at 04:17; Start 01/28/21 at 04:15; Stop 01/28/21 at 04:16; Status DC Sodium Chloride 500 ml @ 500 mls/hr 1X ONCE IV Last administered on 01/28/21at 05:37; Start 01/28/21 at 04:45; Stop 01/28/21 at 05:44; Status DC Albuterol Sulfate (Ventolin Neb Soln) 2.5 mg QID INH ; Start 01/28/21 at 13:00; Status UNV Aspirin (Aspirin Chewable) 81 mg DAILY PO Last administered on 02/01/21at 08:33; Start 01/28/21 at 10:00 Guaifenesin/ Codeine Phosphate (Robitussin Ac) 10 ml TID PRN PRN PO COUGH Last administered on 02/01/21 05:19; Start 01/28/21 at 10:00 Albuterol/ Ipratropium (Duoneb) 3 ml TID NEB Last administered on 02/01/21at 05:13; Start 01/28/21 at 14:00 Montelukast Sodium (Singulair) 10 mg HS PO Last administered on 01/31/21at 20:29; Start 01/28/21 at 21:00 Oxycodone/ Acetaminophen (Percocet 5/325) 1 tab TID PO Last administered on 02/01/21 08:33; Start 01/28/21 at 14:00 Non-Formulary Medication (Budesonide (Pulmicort Flexhaler)) 2 puff BID IH ; Start 01/28/21 at 21:00; Stop 01/28/21 at 10:28; Status DC Lisinopril (Prinivil) 2.5 mg DAILY PO ; Start 01/29/21 at 09:00; Stop 01/28/21 at 12:27; Status DC Potassium Chloride (Klor-Con) 40 meq 1X ONCE PO Last administered on 01/28/21at 11:44; Start 01/28/21 at 10:15; Stop 01/28/21 at 10:20; Status DC Budesonide (Pulmicort) 0.5 mg RTBID NEB Last administered on 02/01/21at 05:13; Start 01/28/21 at 12:00 Doxycycline Hyclate (Vibra-Tab) 100 mg BID PO Last administered on 01/29/21at 07:38; Start 01/28/21 at 21:00; Stop 01/29/21 at 08:55; Status DC Doxycycline Hyclate (Vibra-Tab) 100 mg 1X ONCE PO Last administered on 01/28/21at 11:44; Start 01/28/21 at 10:30; Stop 01/28/21 at 10:36; Status DC Ceftriaxone Sodium (Rocephin) 2 gm Q24H IVP Last administered on 01/28/21at 20:40; Start 01/28/21 at 21:00; Stop 01/29/21 at 08:55; Status DC Doxycycline Hyclate (Vibra-Tab) 100 mg BID PO ; Start 01/28/21 at 21:00; Status UNV Albuterol/ Ipratropium (Duoneb) 3 ml STK-MED ONCE .ROUTE ; Start 01/28/21 at 11:43; Stop 01/28/21 at 11:43; Status DC Atorvastatin Calcium (Lipitor) 20 mg QHS PO Last administered on 01/31/21at 20:29; Start 01/28/21 at 21:00 Pantoprazole Sodium (Protonix) 40 mg DAILYAC PO Last administered on 02/01/21at 08:33; Start 01/29/21 at 07:30 Lactobacillus Rhamnosus (Culturelle) 1 cap BID PO Last administered on 02/01/21at 08:33; Start 01/28/21 at 21:00 Piperacillin Sod/ Tazobactam Sod 3.375 gm/Sodium Chloride 50 ml @ 100 mls/hr Q6HRS IV Last administered on 02/01/21at 05:20; Start 01/29/21 at 12:00 Potassium Chloride (Klor-Con) 40 meq 1X ONCE PO Last administered on 01/29/21at 14:04; Start 01/29/21 at 13:00; Stop 01/29/21 at 13:01; Status DC Doxycycline Hyclate (Vibra-Tab) 100 mg BID PO Last administered on 02/01/21at 08:34; Start 01/30/21 at 09:00 Active Scripts Active Codeine-Guaifen 10-100 mg/5 ml (Guaifenesin/Codeine Phosphate) 120 Ml Liquid 120 Ml PO TID PRN PRN 7 Days Augmentin 500-125 Tablet (Amoxicillin/Potassium Clav) 1 Each Tablet 1 Tab PO BID Pulmicort Flexhaler (Budesonide) 180 Mcg Aer.pow.ba 2 Puff IH BID Mucinex Dm Er 600-30 Mg Tablet (Guaifenesin/Dextromethorphan) 1 Each Tab.er.12h 1 Tab PO BID MDD 1 Percocet 5-325 Mg Tablet (Oxycodone/Acetaminophen) 1 Each Tablet 1 Tab PO TID MDD 1 Reported Flovent 100MCG Diskus (Fluticasone Propionate) 100 Mcg Disk.w.dev 1 Puff IH BID Serevent Diskus (Salmeterol Xinafoate) 50 Mcg Disk.w.dev 50 Mcg IH BID Duoneb 0.5-3(2.5) Mg/3 Ml (Albuterol/Ipratropium) 3 Ml Ampul.neb 3 Ml IH TID Aspirin 81 Mg Tab.chew 1 Tab PO DAILY Lisinopril 2.5 Mg Tablet 1 Tab PO HS Montelukast Sodium Tablet (Montelukast Sodium) 10 Mg Tablet 10 Mg PO HS Proair Hfa Inhaler (Albuterol Sulfate) 8.5 Gm Hfa.aer.ad 2 Puff IH PRN Q4-6HRS PRN Vitals/I & O Vital Sign - Last 24 Hours 01/31/21 01/31/21 01/31/21 01/31/21 11:00 12:11 15:00 19:50 Temp 99.0 98.7 98.5 99.0 98.7 98.5 Pulse 69 73 75 Resp 22 20 18 B/P (MAP) 103/53 (70) 132/43 (72) 111/50 (70) Pulse Ox 96 98 95 96 O2 Delivery Nasal Cannula Nasal Cannula Nasal Cannula Nasal Cannula O2 Flow Rate 3.5 3.5 3.0 3.0 01/31/21 01/31/21 01/31/21 01/31/21 20:00 20:29 20:45 20:59 Resp 20 20 Pulse Ox 96 97 O2 Delivery Nasal Cannula Nasal Cannula Nasal Cannula Nasal Cannula O2 Flow Rate 4.0 3.0 3.5 4.0 01/31/21 02/01/21 02/01/21 02/01/21 22:46 02:48 05:13 07:00 Temp 98.9 98.7 98.1 98.9 98.7 98.1 Pulse 89 75 78 Resp 24 18 18 B/P (MAP) 135/64 (87) 135/60 (85) 137/61 (86) Pulse Ox 96 97 97 94 O2 Delivery Nasal Cannula Nasal Cannula Nasal Cannula Nasal Cannula O2 Flow Rate 3.0 3.0 3.5 3.0 02/01/21 08:33 O2 Delivery Room Air O2 Flow Rate 4.0 Intake and Output 01/31/21 01/31/21 02/01/21 15:00 23:00 07:00 Intake Total 390 ml 770 ml 0 ml Output Total 350 ml 350 ml Balance 390 ml 420 ml -350 ml Justicifation of Admission Dx: Justifications for Admission: Justification of Admission Dx: Yes INEZ MOSER MD February 01, 2021 09:01
--- NOTE | 2021-02-01 10:18 | PDOC ---
PULMONARY PROGRESS NOTES DATE: 02/01/21 TIME: 10:14 Subjective remains on 4 L nasal cannula No increased shortness of breath,reports productive cough with green sputum a-febrile Vitals Vital Signs Date Time Temp Pulse Resp B/P (MAP) Pulse Ox O2 Delivery O2 Flow Rate FiO2 02/01/21 09:53 Nasal Cannula 4.0 02/01/21 07:00 98.1 78 18 137/61 (86) 94 98.1 ROS: No Nausea, No Chest Pain, No Abdominal Pain General: Alert, Oriented X4 HEENT: Other Lungs: Clear Cardiovascular: S1, S2 Abdomen: Soft, Non-tender Neuro Exam: Alert, Oriented Extremities: No Edema Skin: Warm, Dry Labs Laboratory Tests Test 02/01/21 03:15 White Blood Count 6.7 x10^3/uL (4.0-11.0) Red Blood Count 3.89 x10^6/uL (3.50-5.40) Hemoglobin 11.7 g/dL (12.0-15.5) Hematocrit 35.4 % (36.0-47.0) Mean Corpuscular Volume 91 fL (79-100) Mean Corpuscular Hemoglobin 30 pg (25-35) Mean Corpuscular Hemoglobin Concent 33 g/dL (31-37) Red Cell Distribution Width 13.2 % (11.5-14.5) Platelet Count 287 x10^3/uL (140-400) Neutrophils (%) (Auto) 65 % (31-73) Lymphocytes (%) (Auto) 19 % (24-48) Monocytes (%) (Auto) 11 % (0-9) Eosinophils (%) (Auto) 4 % (0-3) Basophils (%) (Auto) 1 % (0-3) Neutrophils # (Auto) 4.4 x10^3/uL (1.8-7.7) Lymphocytes # (Auto) 1.3 x10^3/uL (1.0-4.8) Monocytes # (Auto) 0.7 x10^3/uL (0.0-1.1) Eosinophils # (Auto) 0.3 x10^3/uL (0.0-0.7) Basophils # (Auto) 0.0 x10^3/uL (0.0-0.2) Sodium Level 141 mmol/L (136-145) Potassium Level 3.9 mmol/L (3.5-5.1) Chloride Level 104 mmol/L (98-107) Carbon Dioxide Level 29 mmol/L (21-32) Anion Gap 8 (6-14) Blood Urea Nitrogen 11 mg/dL (7-20) Creatinine 0.7 mg/dL (0.6-1.0) Estimated GFR (Cockcroft-Gault) 82.3 Glucose Level 98 mg/dL (70-99) Calcium Level 8.7 mg/dL (8.5-10.1) Laboratory Tests Test 02/01/21 03:15 White Blood Count 6.7 x10^3/uL (4.0-11.0) Red Blood Count 3.89 x10^6/uL (3.50-5.40) Hemoglobin 11.7 g/dL (12.0-15.5) Hematocrit 35.4 % (36.0-47.0) Mean Corpuscular Volume 91 fL (79-100) Mean Corpuscular Hemoglobin 30 pg (25-35) Mean Corpuscular Hemoglobin Concent 33 g/dL (31-37) Red Cell Distribution Width 13.2 % (11.5-14.5) Platelet Count 287 x10^3/uL (140-400) Neutrophils (%) (Auto) 65 % (31-73) Lymphocytes (%) (Auto) 19 % (24-48) Monocytes (%) (Auto) 11 % (0-9) Eosinophils (%) (Auto) 4 % (0-3) Basophils (%) (Auto) 1 % (0-3) Neutrophils # (Auto) 4.4 x10^3/uL (1.8-7.7) Lymphocytes # (Auto) 1.3 x10^3/uL (1.0-4.8) Monocytes # (Auto) 0.7 x10^3/uL (0.0-1.1) Eosinophils # (Auto) 0.3 x10^3/uL (0.0-0.7) Basophils # (Auto) 0.0 x10^3/uL (0.0-0.2) Sodium Level 141 mmol/L (136-145) Potassium Level 3.9 mmol/L (3.5-5.1) Chloride Level 104 mmol/L (98-107) Carbon Dioxide Level 29 mmol/L (21-32) Anion Gap 8 (6-14) Blood Urea Nitrogen 11 mg/dL (7-20) Creatinine 0.7 mg/dL (0.6-1.0) Estimated GFR (Cockcroft-Gault) 82.3 Glucose Level 98 mg/dL (70-99) Calcium Level 8.7 mg/dL (8.5-10.1) Medications Active Scripts Medications Dose Route/Sig Max Daily Dose Days Date Category Codeine-Guaifen 10-100 mg/5 ml (Guaifenesin/Codeine Phosphate) 120 Ml Liquid 120 Ml PO TID PRN PRN 7 03/11/19 Rx Augmentin 500-125 Tablet (Amoxicillin/Potassium Clav) 1 Each Tablet 1 Tab PO BID 03/11/19 Rx Pulmicort Flexhaler (Budesonide) 180 Mcg Aer.pow.ba 2 Puff IH BID 03/11/19 Rx Mucinex Dm Er 600-30 Mg Tablet (Guaifenesin/Dextromethorphan) 1 Each Tab.er.12h 1 Tab PO BID MDD 1 03/11/19 Rx Percocet 5-325 Mg Tablet (Oxycodone/Acetaminophen) 1 Each Tablet 1 Tab PO TID MDD 1 03/11/19 Rx Flovent 100MCG Diskus (Fluticasone Propionate) 100 Mcg Disk.w.dev 1 Puff IH BID 07/11/17 Reported Serevent Diskus (Salmeterol Xinafoate) 50 Mcg Disk.w.dev 50 Mcg IH BID 07/09/14 Reported Duoneb 0.5-3(2.5) Mg/3 Ml (Albuterol/Ipratropium) 3 Ml Ampul.neb 3 Ml IH TID 07/09/14 Reported Aspirin 81 Mg Tab.chew 1 Tab PO DAILY 07/09/14 Reported Lisinopril 2.5 Mg Tablet 1 Tab PO HS 07/09/14 Reported Montelukast Sodium Tablet (Montelukast Sodium) 10 Mg Tablet 10 Mg PO HS 07/09/14 Reported Proair Hfa Inhaler (Albuterol Sulfate) 8.5 Gm Hfa.aer.ad 2 Puff IH PRN Q4-6HRS PRN 07/09/14 Reported Comments 01/31/21 CXR Mild left effusion and vague bilateral infiltrates. This could be atypical pneumonia but appears similar to the prior study. CT chest IMPRESSION: 1. There is an enlarging pulmonary nodule in the right upper lobe that now measures up to 1.4 cm versus 0.7 cm previously. Findings are suspicious for malignancy. PET CT could better evaluate. 2. Multiple additional noncalcified pulmonary nodules, the majority of which are stable. There is a somewhat vague nodule in the left upper lobe that is new. Continued follow-up imaging to ensure stability. 3. Emphysema with bibasilar scarring is bronchial wall thickening. 4. Coronary artery calcifications and mild ectasia of the ascending thoracic aorta. 5. Borderline enlarged mediastinal lymph nodes, nonspecific Impression . ASSESSMENT 1. Acute on chronic hypoxic respiratory failure secondary to acute exacerbation of chronic obstructive pulmonary disease and acute bronchitis.--stable/improved 2. Abnormal CT chest dated 01/28/2021 with increase in the size of the nodule of 1.4 cm compared to the previous 0.7 cm in the right upper lobe. This is the same nodule, which was 15 mm in size in 01/2020. PET scan in the past had not shown any hypermetabolic activity. There are other bilateral lung nodules as well. The nodules have been waxing and waning and likely inflammatory in etiology. We will consider repeating a PET scan as an outpatient. Her blood test for cancer antigens was negative previously. 3. The patient with severe oxygen dependent chronic obstructive pulmonary disease. 4. Abdominal distention per primary care physician--resolved . Plan . RECOMMENDATIONS: Continue supplemental oxygen to keep oxygen saturations greater than 92%, remains on 4 liters NC Continue bronchodilators and Pulmicort Continue antibiotics per infectious disease-- follow cultures, will obtain sputum culture today Continue steroids Patient will need to follow-up in the office with Dr. Joy for a repeat PET scan DVT/GI prophylaxis Discussed with GUY AMOR MD February 01, 2021 10:18
[2021-02-01] MEDS ORDERED: FUROSEMIDE 20 MG/2 ML VIAL. IVP ONE (10:30)
--- NOTE | 2021-02-01 10:34 | PDOC ---
Infectious Disease Note Subjective Subjective SOA with activity Oxygen up to 4L (3L at baseline) Dry cough, minimal phlegm, Abdominal pain has improved. No fever/chills last 24 hrs. ROS ROS as mentioned above, otherwise neg Vital Sign Vital Signs Vital Signs Date Time Temp Pulse Resp B/P (MAP) Pulse Ox O2 Delivery O2 Flow Rate FiO2 02/01/21 09:53 Nasal Cannula 4.0 02/01/21 07:00 98.1 78 18 137/61 (86) 94 98.1 Physical Exam PHYSICAL EXAM GENERAL: Alert, oriented x 3 female,lying in bed comfortable HEENT: Normocephalic, atraumatic. Anicteric. NECK: Supple. No JVD. LUNGS: Decreased breath sounds, wheezing improved no accessory muscle use. HEART: S1, S2. No murmurs. ABDOMEN: Soft, Nondistended No rebound or guarding. Bowel sounds present. BACK: No CVA tenderness. EXTREMITIES: No edema, no cyanosis. SKIN: Warm, dry, no generalized rash. NEUROLOGIC: Alert, oriented x 3. Grossly nonfocal. PSYCHIATRIC: Cooperative. PSYCHIATRIC: Appropriate mood and affect. Labs Lab Laboratory Tests Test 02/01/21 03:15 White Blood Count 6.7 x10^3/uL (4.0-11.0) Red Blood Count 3.89 x10^6/uL (3.50-5.40) Hemoglobin 11.7 g/dL (12.0-15.5) Hematocrit 35.4 % (36.0-47.0) Mean Corpuscular Volume 91 fL (79-100) Mean Corpuscular Hemoglobin 30 pg (25-35) Mean Corpuscular Hemoglobin Concent 33 g/dL (31-37) Red Cell Distribution Width 13.2 % (11.5-14.5) Platelet Count 287 x10^3/uL (140-400) Neutrophils (%) (Auto) 65 % (31-73) Lymphocytes (%) (Auto) 19 % (24-48) Monocytes (%) (Auto) 11 % (0-9) Eosinophils (%) (Auto) 4 % (0-3) Basophils (%) (Auto) 1 % (0-3) Neutrophils # (Auto) 4.4 x10^3/uL (1.8-7.7) Lymphocytes # (Auto) 1.3 x10^3/uL (1.0-4.8) Monocytes # (Auto) 0.7 x10^3/uL (0.0-1.1) Eosinophils # (Auto) 0.3 x10^3/uL (0.0-0.7) Basophils # (Auto) 0.0 x10^3/uL (0.0-0.2) Sodium Level 141 mmol/L (136-145) Potassium Level 3.9 mmol/L (3.5-5.1) Chloride Level 104 mmol/L (98-107) Carbon Dioxide Level 29 mmol/L (21-32) Anion Gap 8 (6-14) Blood Urea Nitrogen 11 mg/dL (7-20) Creatinine 0.7 mg/dL (0.6-1.0) Estimated GFR (Cockcroft-Gault) 82.3 Glucose Level 98 mg/dL (70-99) Calcium Level 8.7 mg/dL (8.5-10.1) CXR Mild left effusion and vague bilateral infiltrates. This could be atypical pneumonia but appears similar to the prior study. Micro Microbiology 01/28/21 Blood Culture - Preliminary, Resulted NO GROWTH AFTER 4 DAYS Objective Assessment Fever. better Leucocytosis also on steroids, improved COPD exacerbation.Pulmonary nodule worsened on CT. ALLERGIES TO AMOXICILLIN, has tolerated Augmentin well. Abdominal discomfort. Improved but now with nausea and vomiting Coronary artery disease. ALLERGIC REACTION TO LISINOPRIL. Plan Plan of Care Cont Zosyn and doxycycline Probiotics Blood cultures negative to date Maintain aspiration precautions Urine for strep and Legionella antigen Monitor labs and cultures Supportive care Better now but had a coughing spell earlier and finally had a BM Eating some Change to Augmentin (Zosyn 01/29) Doxy - 01/28 and previous Rocephin Attending Co-Sign Attending Co-Sign The patient was seen and interviewed as well as examined at the bedside. The chart was reviewed. The case was discussed. Agree with the plan of care. NICOLETTE GUERRERO APRN February 01, 2021 10:34 TIFFANIE JAY MD February 01, 2021 13:56
[2021-02-01 11:00] VITALS: BP 108/56
--- NOTE | 2021-02-01 11:55 | PDOC ---
Date of Service: DATE: 02/01/21 TIME: 11:51 Subjective: Subjective: Some nausea improved w/ medications, tolerating diet. Less abd distention. Has some questions about GERD, tells me about her mother. Objective: Objective: She described taking anti-emetic here - not ordered - ?maybe talking about cough syrup? Vital Signs: Vital Signs Date Time Temp Pulse Resp B/P (MAP) Pulse Ox O2 Delivery O2 Flow Rate FiO2 02/01/21 11:44 94 Nasal Cannula 3.5 02/01/21 11:00 98.3 81 18 108/56 (73) 98.3 Labs: Laboratory Tests Test 02/01/21 03:15 White Blood Count 6.7 x10^3/uL Red Blood Count 3.89 x10^6/uL Hemoglobin 11.7 g/dL Hematocrit 35.4 % Mean Corpuscular Volume 91 fL Mean Corpuscular Hemoglobin 30 pg Mean Corpuscular Hemoglobin Concent 33 g/dL Red Cell Distribution Width 13.2 % Platelet Count 287 x10^3/uL Neutrophils (%) (Auto) 65 % Lymphocytes (%) (Auto) 19 % Monocytes (%) (Auto) 11 % Eosinophils (%) (Auto) 4 % Basophils (%) (Auto) 1 % Neutrophils # (Auto) 4.4 x10^3/uL Lymphocytes # (Auto) 1.3 x10^3/uL Monocytes # (Auto) 0.7 x10^3/uL Eosinophils # (Auto) 0.3 x10^3/uL Basophils # (Auto) 0.0 x10^3/uL Sodium Level 141 mmol/L Potassium Level 3.9 mmol/L Chloride Level 104 mmol/L Carbon Dioxide Level 29 mmol/L Anion Gap 8 Blood Urea Nitrogen 11 mg/dL Creatinine 0.7 mg/dL Estimated GFR (Cockcroft-Gault) 82.3 Glucose Level 98 mg/dL Calcium Level 8.7 mg/dL BLOOD CULTURE Preliminary NO GROWTH AFTER 4 DAYS PE: GEN: NAD LUNGS: loud cough, diminished HEART: RRR ABD: NABS, S/ND/NT NEURO/PSYCH: A & O 3 A/P: COPD exacerbation GERD, nausea Normocytic anemia -- Continue PPI. Justicifation of Admission Dx: Justifications for Admission: Justification of Admission Dx: Yes EDWARDO MORRISON February 01, 2021 11:55
--- NOTE | 2021-02-01 12:28 | NUR ---
SS following up with discharge planning. SS reviewed pt chart and discussed with pt RN. Pt is currently requiring oxygen at three to four liters nasal canula. Pt has home home oxygen. Pt on IV Zosyn. PT/OT recommended home independent. Pt transferred to room 412. Yulissa ROSE to follow.
[2021-02-01 15:00] VITALS: BP 121/52
[2021-02-01 19:00] VITALS: BP 140/57
[2021-02-01] MEDS: ATORVASTATIN CALCIUM 20 MG TABLET PO SCH (21:08)
[2021-02-01] MEDS: AMOXICILLIN/K CLAV 875/125MG TABLET. PO SCH (21:08)
[2021-02-01] MEDS: MONTELUKAST SODIUM 10 MG TABLET. PO SCH (21:08)
[2021-02-01 23:00] VITALS: BP 117/56
[2021-02-02 03:00] VITALS: BP 146/54
[2021-02-02 04:59] LABS: BASO # 0.1 x10^3/uL (0.0-0.2); BASO % 1 % (0-3); EOS # 0.2 x10^3/uL (0.0-0.7); EOS % 4 % (0-3); HEMATOCRIT 35.2 % (36.0-47.0); HEMOGLOBIN 11.6 g/dL (12.0-15.5); LYMPH # 1.4 x10^3/uL (1.0-4.8); LYMPH % 22 % (24-48); MEAN CORPUSCULAR HEMOGLOBIN 30 pg (25-35); MEAN CORPUSCULAR HGB CONC 33 g/dL (31-37); MEAN CORPUSCULAR VOLUME 91 fL (79-100); MONO # 0.6 x10^3/uL (0.0-1.1); MONO % 10 % (0-9); NEUT # 4.1 x10^3/uL (1.8-7.7); NEUT % 63 % (31-73); PLATELET COUNT 305 x10^3/uL (140-400); RED BLOOD COUNT 3.87 x10^6/uL (3.50-5.40); WHITE BLOOD COUNT 6.5 x10^3/uL (4.0-11.0)
[2021-02-02] MEDS: PANTOPRAZOLE 40 MG TABLET.DR. PO SCH ×2 (06:27→16:49)
[2021-02-02 07:00] VITALS: BP 125/64
[2021-02-02] MEDS: IPRATRPIUM/ALBUTEROL 0.5/2.5MG 3 ML NEBU. NEB SCH ×3 (07:16→20:31)
[2021-02-02] MEDS: BUDESONIDE 0.5 MG/2 ML NEBU. NEB SCH ×2 (07:17→20:32)
[2021-02-02] MEDS: ASPIRIN CHEWABLE 81 MG TABLET. PO SCH (08:24)
[2021-02-02] MEDS: oxyCODONE/APAP 5/325 1 TAB TABLET PO SCH ×3 (08:25→20:31)
[2021-02-02] MEDS: LACTOBACILLUS RHAMNOSUS GG 1 CAPSULE. PO SCH ×2 (08:25→20:30)
[2021-02-02] MEDS: DOXYCYCLINE HYCLATE 100 MG TABLET PO SCH ×2 (08:25→20:31)
[2021-02-02] MEDS: AMOXICILLIN/K CLAV 875/125MG TABLET. PO SCH ×2 (08:25→20:30)
[2021-02-02] MEDS: guaiFENesin/CODEINE 100mg/10mg 5 ML LIQUID PO PRN ×2 (09:24→16:50)
--- NOTE | 2021-02-02 09:52 | PDOC ---
PULMONARY PROGRESS NOTES DATE: 02/02/21 TIME: 09:50 Subjective remains on 4 L nasal cannula no increased SOA or Cough a-febrile Vitals Vital Signs Date Time Temp Pulse Resp B/P (MAP) Pulse Ox O2 Delivery O2 Flow Rate FiO2 02/02/21 09:24 Nasal Cannula 4.0 02/02/21 07:21 98 02/02/21 07:00 98.1 64 18 125/64 (84) 98.1 ROS: No Nausea, No Chest Pain, No Abdominal Pain General: Alert, Oriented X4 HEENT: Other Lungs: Clear Cardiovascular: S1, S2 Abdomen: Soft, Non-tender Neuro Exam: Alert, Oriented Extremities: No Edema Skin: Warm, Dry Labs Laboratory Tests Test 02/01/21 03:15 02/02/21 04:17 White Blood Count 6.7 x10^3/uL (4.0-11.0) 6.5 x10^3/uL (4.0-11.0) Red Blood Count 3.89 x10^6/uL (3.50-5.40) 3.87 x10^6/uL (3.50-5.40) Hemoglobin 11.7 g/dL (12.0-15.5) 11.6 g/dL (12.0-15.5) Hematocrit 35.4 % (36.0-47.0) 35.2 % (36.0-47.0) Mean Corpuscular Volume 91 fL (79-100) 91 fL (79-100) Mean Corpuscular Hemoglobin 30 pg (25-35) 30 pg (25-35) Mean Corpuscular Hemoglobin Concent 33 g/dL (31-37) 33 g/dL (31-37) Red Cell Distribution Width 13.2 % (11.5-14.5) 13.0 % (11.5-14.5) Platelet Count 287 x10^3/uL (140-400) 305 x10^3/uL (140-400) Neutrophils (%) (Auto) 65 % (31-73) 63 % (31-73) Lymphocytes (%) (Auto) 19 % (24-48) 22 % (24-48) Monocytes (%) (Auto) 11 % (0-9) 10 % (0-9) Eosinophils (%) (Auto) 4 % (0-3) 4 % (0-3) Basophils (%) (Auto) 1 % (0-3) 1 % (0-3) Neutrophils # (Auto) 4.4 x10^3/uL (1.8-7.7) 4.1 x10^3/uL (1.8-7.7) Lymphocytes # (Auto) 1.3 x10^3/uL (1.0-4.8) 1.4 x10^3/uL (1.0-4.8) Monocytes # (Auto) 0.7 x10^3/uL (0.0-1.1) 0.6 x10^3/uL (0.0-1.1) Eosinophils # (Auto) 0.3 x10^3/uL (0.0-0.7) 0.2 x10^3/uL (0.0-0.7) Basophils # (Auto) 0.0 x10^3/uL (0.0-0.2) 0.1 x10^3/uL (0.0-0.2) Sodium Level 141 mmol/L (136-145) Potassium Level 3.9 mmol/L (3.5-5.1) Chloride Level 104 mmol/L (98-107) Carbon Dioxide Level 29 mmol/L (21-32) Anion Gap 8 (6-14) Blood Urea Nitrogen 11 mg/dL (7-20) Creatinine 0.7 mg/dL (0.6-1.0) Estimated GFR (Cockcroft-Gault) 82.3 Glucose Level 98 mg/dL (70-99) Calcium Level 8.7 mg/dL (8.5-10.1) Laboratory Tests Test 02/02/21 04:17 White Blood Count 6.5 x10^3/uL (4.0-11.0) Red Blood Count 3.87 x10^6/uL (3.50-5.40) Hemoglobin 11.6 g/dL (12.0-15.5) Hematocrit 35.2 % (36.0-47.0) Mean Corpuscular Volume 91 fL (79-100) Mean Corpuscular Hemoglobin 30 pg (25-35) Mean Corpuscular Hemoglobin Concent 33 g/dL (31-37) Red Cell Distribution Width 13.0 % (11.5-14.5) Platelet Count 305 x10^3/uL (140-400) Neutrophils (%) (Auto) 63 % (31-73) Lymphocytes (%) (Auto) 22 % (24-48) Monocytes (%) (Auto) 10 % (0-9) Eosinophils (%) (Auto) 4 % (0-3) Basophils (%) (Auto) 1 % (0-3) Neutrophils # (Auto) 4.1 x10^3/uL (1.8-7.7) Lymphocytes # (Auto) 1.4 x10^3/uL (1.0-4.8) Monocytes # (Auto) 0.6 x10^3/uL (0.0-1.1) Eosinophils # (Auto) 0.2 x10^3/uL (0.0-0.7) Basophils # (Auto) 0.1 x10^3/uL (0.0-0.2) Medications Active Scripts Medications Dose Route/Sig Max Daily Dose Days Date Category Codeine-Guaifen 10-100 mg/5 ml (Guaifenesin/Codeine Phosphate) 120 Ml Liquid 120 Ml PO TID PRN PRN 7 03/11/19 Rx Augmentin 500-125 Tablet (Amoxicillin/Potassium Clav) 1 Each Tablet 1 Tab PO BID 03/11/19 Rx Pulmicort Flexhaler (Budesonide) 180 Mcg Aer.pow.ba 2 Puff IH BID 03/11/19 Rx Mucinex Dm Er 600-30 Mg Tablet (Guaifenesin/Dextromethorphan) 1 Each Tab.er.12h 1 Tab PO BID MDD 1 03/11/19 Rx Percocet 5-325 Mg Tablet (Oxycodone/Acetaminophen) 1 Each Tablet 1 Tab PO TID MDD 1 03/11/19 Rx Flovent 100MCG Diskus (Fluticasone Propionate) 100 Mcg Disk.w.dev 1 Puff IH BID 07/11/17 Reported Serevent Diskus (Salmeterol Xinafoate) 50 Mcg Disk.w.dev 50 Mcg IH BID 07/09/14 Reported Duoneb 0.5-3(2.5) Mg/3 Ml (Albuterol/Ipratropium) 3 Ml Ampul.neb 3 Ml IH TID 07/09/14 Reported Aspirin 81 Mg Tab.chew 1 Tab PO DAILY 07/09/14 Reported Lisinopril 2.5 Mg Tablet 1 Tab PO HS 07/09/14 Reported Montelukast Sodium Tablet (Montelukast Sodium) 10 Mg Tablet 10 Mg PO HS 07/09/14 Reported Proair Hfa Inhaler (Albuterol Sulfate) 8.5 Gm Hfa.aer.ad 2 Puff IH PRN Q4-6HRS PRN 07/09/14 Reported Comments 01/31/21 CXR Mild left effusion and vague bilateral infiltrates. This could be atypical pneumonia but appears similar to the prior study. CT chest IMPRESSION: 1. There is an enlarging pulmonary nodule in the right upper lobe that now measures up to 1.4 cm versus 0.7 cm previously. Findings are suspicious for malignancy. PET CT could better evaluate. 2. Multiple additional noncalcified pulmonary nodules, the majority of which are stable. There is a somewhat vague nodule in the left upper lobe that is new. Continued follow-up imaging to ensure stability. 3. Emphysema with bibasilar scarring is bronchial wall thickening. 4. Coronary artery calcifications and mild ectasia of the ascending thoracic aorta. 5. Borderline enlarged mediastinal lymph nodes, nonspecific Impression . ASSESSMENT 1. Acute on chronic hypoxic respiratory failure secondary to acute exacerbation of chronic obstructive pulmonary disease and acute bronchitis.--stable/improved 2. Abnormal CT chest dated 01/28/2021 with increase in the size of the nodule of 1.4 cm compared to the previous 0.7 cm in the right upper lobe. This is the same nodule, which was 15 mm in size in 01/2020. PET scan in the past had not shown any hypermetabolic activity. There are other bilateral lung nodules as well. The nodules have been waxing and waning and likely inflammatory in etiology. We will consider repeating a PET scan as an outpatient. Her blood test for cancer antigens was negative previously. 3. The patient with severe oxygen dependent chronic obstructive pulmonary disease. 4. Abdominal distention per primary care physician--resolved . Plan . RECOMMENDATIONS: Continue supplemental oxygen to keep oxygen saturations greater than 92%, remains on 4 liters NC Continue bronchodilators and Pulmicort symptomatic treatment of cough Continue antibiotics per infectious disease-- follow cultures, await sputum culture Continue steroids Patient will need to follow-up in the office with Dr. Joy for a repeat PET scan DVT/GI prophylaxis Discussed with GUY AMOR MD February 02, 2021 09:52
--- NOTE | 2021-02-02 10:00 | PDOC ---
Infectious Disease Note Subjective Subjective SOA with activity No increase O2 needs, 4L + cough, N/V + BM. No diarrhea. Abdominal pain has improved. No fever/chills last 48 hrs. Vital Sign Vital Signs Vital Signs Date Time Temp Pulse Resp B/P (MAP) Pulse Ox O2 Delivery O2 Flow Rate FiO2 02/02/21 09:24 Nasal Cannula 4.0 02/02/21 07:21 98 02/02/21 07:00 98.1 64 18 125/64 (84) 98.1 Physical Exam PHYSICAL EXAM GENERAL: Alert, oriented x 3 female,lying in bed comfortable HEENT: Normocephalic, atraumatic. Anicteric. NECK: Supple. No JVD. LUNGS: Decreased breath sounds, wheezing improved no accessory muscle use. HEART: S1, S2. No murmurs. ABDOMEN: Soft, Nondistended No rebound or guarding. Bowel sounds present. BACK: No CVA tenderness. EXTREMITIES: No edema, no cyanosis. SKIN: Warm, dry, no generalized rash. NEUROLOGIC: Alert, oriented x 3. Grossly nonfocal. PSYCHIATRIC: Cooperative. PSYCHIATRIC: Appropriate mood and affect. Labs Lab Laboratory Tests Test 02/02/21 04:17 White Blood Count 6.5 x10^3/uL (4.0-11.0) Red Blood Count 3.87 x10^6/uL (3.50-5.40) Hemoglobin 11.6 g/dL (12.0-15.5) Hematocrit 35.2 % (36.0-47.0) Mean Corpuscular Volume 91 fL (79-100) Mean Corpuscular Hemoglobin 30 pg (25-35) Mean Corpuscular Hemoglobin Concent 33 g/dL (31-37) Red Cell Distribution Width 13.0 % (11.5-14.5) Platelet Count 305 x10^3/uL (140-400) Neutrophils (%) (Auto) 63 % (31-73) Lymphocytes (%) (Auto) 22 % (24-48) Monocytes (%) (Auto) 10 % (0-9) Eosinophils (%) (Auto) 4 % (0-3) Basophils (%) (Auto) 1 % (0-3) Neutrophils # (Auto) 4.1 x10^3/uL (1.8-7.7) Lymphocytes # (Auto) 1.4 x10^3/uL (1.0-4.8) Monocytes # (Auto) 0.6 x10^3/uL (0.0-1.1) Eosinophils # (Auto) 0.2 x10^3/uL (0.0-0.7) Basophils # (Auto) 0.1 x10^3/uL (0.0-0.2) Micro Microbiology 01/28/21 Blood Culture - Preliminary, Resulted NO GROWTH AFTER 4 DAYS Objective Assessment Fever. better Leucocytosis also on steroids, improved COPD exacerbation.Pulmonary nodule worsened on CT. ALLERGIES TO AMOXICILLIN, has tolerated Augmentin well. Abdominal discomfort. Improved but now with nausea and vomiting Coronary artery disease. ALLERGIC REACTION TO LISINOPRIL. Plan Plan of Care Change to Augmentin (Zosyn 01/29) Doxy - 01/28 and previous Rocephin Probiotics Blood cultures negative Maintain aspiration precautions Urine for strep and Legionella antigen pending Monitor labs Supportive care Discussed with nursing Had some nausea this am but vomiting occur when she bent forward while on the commode and coughed and then vomited However - feeling better overall. Is eating. Probably should take am meds after eating IF well in am can d/c home on po Doxy through 02/04 and augmentin through 02/06 Attending Co-Sign Attending Co-Sign The patient was seen and interviewed as well as examined at the bedside. The chart was reviewed. The case was discussed. Agree with the plan of care. NICOLETTE GUERRERO APRN February 02, 2021 10:00 TIFFANIE JAY MD February 02, 2021 14:08
--- NOTE | 2021-02-02 10:01 | PDOC ---
PROGRESS NOTES Date of Service: DATE: 02/02/21 TIME: 10:01 Chief Complaint Chief Complaint IMPRESSION acute on chronic COPD with acute exacerbation, acute on chronic hypercarbic and hypoxic respiratory failure SIRS, sepsis new abdominal distention, CAD hx, prior stent, CHF stable weakness, and debilit, PT and OT Emphysema and multiple pulmonary nodules, none of which show abnormal FDG uptake suspicious for an FDG avid malignancy. Ongoing follow-up would be prudent. follow-up in the office with Dr. Joy for a repeat PET scan O2 SUPPORT OURCE: BLOOD ENTR: 01/28/[address]: CARLA MANCIA DO [facility]: ORDERED: BCULT Procedure Result BLOOD CULTURE Preliminary NO GROWTH AFTER 4 DAYS D/W RN 02-01 History of Present Illness History of Present Illness still on doxy and zosyn 02-02 There is an enlarging pulmonary nodule in the right upper lobe that now measures up to 1.4 cm versus 0.7 cm previously. Findings are suspicious for malignancy. PET CT could better evaluate. still cough, some sputum may DC telemetry, stable follow-up in the office with Dr. Joy for a repeat PET scan O2 SUPPORT D/W RN 02-01 D/W RN fever , cont abx, follow cultures ID and pulm consuilt following she is fatigued but feels like she is breathing about the same Mild left effusion and vague bilateral infiltrates. This could be atypical pneumonia but appears similar to the prior study. still on doxy and zosyn 02-01 still cough, some sputum may DC telemetry, stable follow-up in the office with Dr. Joy for a repeat PET scan O2 SUPPORT 02-01 D/W RN OURCE: BLOOD ENTR: 01/28/[address]: CARLA MANCIA DO [facility]: ORDERED: BCULT Procedure Result ------- ----- BLOOD CULTURE Preliminary NO GROWTH AFTER 4 DAYS Vitals Vitals Vital Signs Date Time Temp Pulse Resp B/P (MAP) Pulse Ox O2 Delivery O2 Flow Rate FiO2 02/02/21 09:24 Nasal Cannula 4.0 02/02/21 07:21 98 02/02/21 07:00 98.1 64 18 125/64 (84) 98.1 Physical Exam Physical Exam GENERAL: Alert, oriented x 3 female,lying in bed comfortable HEENT: Normocephalic, atraumatic. Anicteric. NECK: Supple. No JVD. LUNGS: Decreased breath sounds, wheezing improved no accessory muscle use. HEART: S1, S2. No murmurs. ABDOMEN: Soft, Nondistended No rebound or guarding. Bowel sounds present. BACK: No CVA tenderness. EXTREMITIES: No edema, no cyanosis. SKIN: Warm, dry, no generalized rash. NEUROLOGIC: Alert, oriented x 3. Grossly nonfocal. PSYCHIATRIC: Cooperative. PSYCHIATRIC: Appropriate mood and affect. General: Alert, Oriented X3, Cooperative, mild distress Heart: Regular rate (SR), Other (distant heart sounds) Lungs: Clear, Wheezing, Other (RHONCHI) Abdomen: Normal bowel sounds, Soft, No tenderness Extremities: No cyanosis, No edema Skin: No breakdown, No significant lesion Labs LABS CT chest without contrast dated 01/28/2021. Comparison made to 09/11/2020. CLINICAL INDICATION: Evaluate lung nodule. TECHNIQUE: Contiguous axial imaging the chest performed without the administration of intravenous contrast. FINDINGS: There is a noncalcified pulmonary nodule in the anterior right upper lobe measures 1.4 cm maximum dimension versus 0.7 cm previously (image 22). There are 3 additional nodules in the anterior right upper lobe on images 19, 20 and 21 that are unchanged, largest of which measures about 6 mm. Small noncalcified nodule in the right upper lobe on image 13 measures 3 mm, stable. There is a subpleural nodule in the right upper lobe posteriorly on image 19 that measures 3 mm, stable. On the left, there is a somewhat vague nodule in the left upper lobe on image 11 that measures about 7 mm, stable. Additional nodular density in the left upper lobe on image 16 measures about 7 mm, new from prior study. There is a nodule in the superior segment left lower lobe 20 measures 4 mm, unchanged. Nodule in the anterior left upper lobe on image 29 measures about 5 mm, unchanged. Central airways are patent. Moderate emphysema. There is diffuse bronchial wall thickening with patchy and linear opacities in the bilateral lower lobes, right middle lobe and lingula. No pleural effusion. Heart size within normal limits. No pericardial effusion. Coronary artery calcifications. There are borderline enlarged precarinal and subcarinal lymph nodes measuring up to 10 mm short axis. No axillary or hilar adenopathy. Thyroid gland is unremarkable. Images of the upper abdomen are unremarkable. No significant bony abnormality. Multilevel spondylosis. IMPRESSION: 1. There is an enlarging pulmonary nodule in the right upper lobe that now measures up to 1.4 cm versus 0.7 cm previously. Findings are suspicious for malignancy. PET CT could better evaluate. 2. Multiple additional noncalcified pulmonary nodules, the majority of which are stable. There is a somewhat vague nodule in the left upper lobe that is new. Continued follow-up imaging to ensure stability. 3. Emphysema with bibasilar scarring is bronchial wall thickening. 4. Coronary artery calcifications and mild ectasia of the ascending thoracic aorta. 5. Borderline enlarged mediastinal lymph nodes, nonspecific Electronically signed by: Ulysses Goyal MD (01/28/2021 5:45 AM) [facility] [place] DICTATED and SIGNED BY: ULYSSES GOYAL MD DATE: 01/28/21 [id number] XR CHEST 1V Clinical History: Reason: sob/fever / Spl. Instructions: / History: Technique: AP view of the chest was obtained at 01/31/2021 12:53 PM. Comparison: January 28, 2021. Findings: The lungs are hyperinflated. The pulmonary vessels appear normal. There is patchy reticular opacities of the lungs. There is blunting of the left costophrenic angle. Impression: Mild left effusion and vague bilateral infiltrates. This could be atypical pneumonia but appears similar to the prior study. Electronically signed by: Tia Sanz III, MD (01/31/2021 1:08 PM) [facility] DICTATED and SIGNED BY: TIA SANZ III, MD DATE: 01/31/21 [id number] CARLA MANCIA MICHAEL F MD ORDERED: RESP CULTURE COMMENTS: Has specimen been collected/obtained? Y Procedure Result GRAM STAIN EVALUATION Final Final GRAM POSITIVE RODS:FEW GRAM POSITIVE COCCI:FEW SQUAMOUS EPI CELL:FEW PMN (WBCs):FEW Unless otherwise specified, Testing Performed by: [address] [address] For Inquires, the Physician may contact the Microbiology department at [phone] RESPIRATORY CULTURE PENDING Laboratory Tests Test 02/02/21 04:17 White Blood Count 6.5 x10^3/uL (4.0-11.0) Red Blood Count 3.87 x10^6/uL (3.50-5.40) Hemoglobin 11.6 g/dL (12.0-15.5) Hematocrit 35.2 % (36.0-47.0) Mean Corpuscular Volume 91 fL (79-100) Mean Corpuscular Hemoglobin 30 pg (25-35) Mean Corpuscular Hemoglobin Concent 33 g/dL (31-37) Red Cell Distribution Width 13.0 % (11.5-14.5) Platelet Count 305 x10^3/uL (140-400) Neutrophils (%) (Auto) 63 % (31-73) Lymphocytes (%) (Auto) 22 % (24-48) Monocytes (%) (Auto) 10 % (0-9) Eosinophils (%) (Auto) 4 % (0-3) Basophils (%) (Auto) 1 % (0-3) Neutrophils # (Auto) 4.1 x10^3/uL (1.8-7.7) Lymphocytes # (Auto) 1.4 x10^3/uL (1.0-4.8) Monocytes # (Auto) 0.6 x10^3/uL (0.0-1.1) Eosinophils # (Auto) 0.2 x10^3/uL (0.0-0.7) Basophils # (Auto) 0.1 x10^3/uL (0.0-0.2) Assessment and Plan Assessmemt and Plan Problems Medical Problems: (1) Sepsis Status: Acute Comment Review of Relevant I have reviewed the following items aileen (where applicable) has been applied. Labs Laboratory Tests Test 02/01/21 03:15 02/02/21 04:17 White Blood Count 6.7 x10^3/uL (4.0-11.0) 6.5 x10^3/uL (4.0-11.0) Red Blood Count 3.89 x10^6/uL (3.50-5.40) 3.87 x10^6/uL (3.50-5.40) Hemoglobin 11.7 g/dL (12.0-15.5) 11.6 g/dL (12.0-15.5) Hematocrit 35.4 % (36.0-47.0) 35.2 % (36.0-47.0) Mean Corpuscular Volume 91 fL (79-100) 91 fL (79-100) Mean Corpuscular Hemoglobin 30 pg (25-35) 30 pg (25-35) Mean Corpuscular Hemoglobin Concent 33 g/dL (31-37) 33 g/dL (31-37) Red Cell Distribution Width 13.2 % (11.5-14.5) 13.0 % (11.5-14.5) Platelet Count 287 x10^3/uL (140-400) 305 x10^3/uL (140-400) Neutrophils (%) (Auto) 65 % (31-73) 63 % (31-73) Lymphocytes (%) (Auto) 19 % (24-48) 22 % (24-48) Monocytes (%) (Auto) 11 % (0-9) 10 % (0-9) Eosinophils (%) (Auto) 4 % (0-3) 4 % (0-3) Basophils (%) (Auto) 1 % (0-3) 1 % (0-3) Neutrophils # (Auto) 4.4 x10^3/uL (1.8-7.7) 4.1 x10^3/uL (1.8-7.7) Lymphocytes # (Auto) 1.3 x10^3/uL (1.0-4.8) 1.4 x10^3/uL (1.0-4.8) Monocytes # (Auto) 0.7 x10^3/uL (0.0-1.1) 0.6 x10^3/uL (0.0-1.1) Eosinophils # (Auto) 0.3 x10^3/uL (0.0-0.7) 0.2 x10^3/uL (0.0-0.7) Basophils # (Auto) 0.0 x10^3/uL (0.0-0.2) 0.1 x10^3/uL (0.0-0.2) Sodium Level 141 mmol/L (136-145) Potassium Level 3.9 mmol/L (3.5-5.1) Chloride Level 104 mmol/L (98-107) Carbon Dioxide Level 29 mmol/L (21-32) Anion Gap 8 (6-14) Blood Urea Nitrogen 11 mg/dL (7-20) Creatinine 0.7 mg/dL (0.6-1.0) Estimated GFR (Cockcroft-Gault) 82.3 Glucose Level 98 mg/dL (70-99) Calcium Level 8.7 mg/dL (8.5-10.1) Laboratory Tests Test 02/02/21 04:17 White Blood Count 6.5 x10^3/uL (4.0-11.0) Red Blood Count 3.87 x10^6/uL (3.50-5.40) Hemoglobin 11.6 g/dL (12.0-15.5) Hematocrit 35.2 % (36.0-47.0) Mean Corpuscular Volume 91 fL (79-100) Mean Corpuscular Hemoglobin 30 pg (25-35) Mean Corpuscular Hemoglobin Concent 33 g/dL (31-37) Red Cell Distribution Width 13.0 % (11.5-14.5) Platelet Count 305 x10^3/uL (140-400) Neutrophils (%) (Auto) 63 % (31-73) Lymphocytes (%) (Auto) 22 % (24-48) Monocytes (%) (Auto) 10 % (0-9) Eosinophils (%) (Auto) 4 % (0-3) Basophils (%) (Auto) 1 % (0-3) Neutrophils # (Auto) 4.1 x10^3/uL (1.8-7.7) Lymphocytes # (Auto) 1.4 x10^3/uL (1.0-4.8) Monocytes # (Auto) 0.6 x10^3/uL (0.0-1.1) Eosinophils # (Auto) 0.2 x10^3/uL (0.0-0.7) Basophils # (Auto) 0.1 x10^3/uL (0.0-0.2) Microbiology 01/28/21 Blood Culture - Final, Complete NO GROWTH AFTER 5 DAYS Medications Current Medications Ceftriaxone Sodium (Rocephin) 1 gm 1X ONCE IVP Last administered on 01/28/21at 04:27; Start 01/28/21 at 04:00; Stop 01/28/21 at 04:01; Status DC Albuterol/ Ipratropium (Duoneb) 3 ml STK-MED ONCE .ROUTE ; Start 01/28/21 at 04 :04; Stop 01/28/21 at 04:05; Status DC Morphine Sulfate (Morphine Sulfate) 5 mg 1X ONCE IV Last administered on 01/28/21at 04:28; Start 01/28/21 at 04:15; Stop 01/28/21 at 04:16; Status DC Albuterol/ Ipratropium (Duoneb) 3 ml 1X ONCE NEB Last administered on 01/28/21at 04:17; Start 01/28/21 at 04:15; Stop 01/28/21 at 04:16; Status DC Sodium Chloride 500 ml @ 500 mls/hr 1X ONCE IV Last administered on 01/28/21at 05:37; Start 01/28/21 at 04:45; Stop 01/28/21 at 05:44; Status DC Albuterol Sulfate (Ventolin Neb Soln) 2.5 mg QID INH ; Start 01/28/21 at 13:00; Status UNV Aspirin (Aspirin Chewable) 81 mg DAILY PO Last administered on 02/02/21 08:24; Start 01/28/21 at 10:00 Guaifenesin/ Codeine Phosphate (Robitussin Ac) 10 ml TID PRN PRN PO COUGH Last administered on 02/02/21 09:24; Start 01/28/21 at 10:00 Albuterol/ Ipratropium (Duoneb) 3 ml TID NEB Last administered on 02/02/21 07:16; Start 01/28/21 at 14:00 Montelukast Sodium (Singulair) 10 mg HS PO Last administered on 02/01/21 21:08; Start 01/28/21 at 21:00 Oxycodone/ Acetaminophen (Percocet 5/325) 1 tab TID PO Last administered on 02/02/21 08:25; Start 01/28/21 at 14:00 Non-Formulary Medication (Budesonide (Pulmicort Flexhaler)) 2 puff BID IH ; Start 01/28/21 at 21:00; Stop 01/28/21 at 10:28; Status DC Lisinopril (Prinivil) 2.5 mg DAILY PO ; Start 01/29/21 at 09:00; Stop 01/28/21 at 12:27; Status DC Potassium Chloride (Klor-Con) 40 meq 1X ONCE PO Last administered on 01/28/21at 11:44; Start 01/28/21 at 10:15; Stop 01/28/21 at 10:20; Status DC Budesonide (Pulmicort) 0.5 mg RTBID NEB Last administered on 02/02/21 07:17; Start 01/28/21 at 12:00 Doxycycline Hyclate (Vibra-Tab) 100 mg BID PO Last administered on 01/29/21 07:38; Start 01/28/21 at 21:00; Stop 01/29/21 at 08:55; Status DC Doxycycline Hyclate (Vibra-Tab) 100 mg 1X ONCE PO Last administered on 01/28/21at 11:44; Start 01/28/21 at 10:30; Stop 01/28/21 at 10:36; Status DC Ceftriaxone Sodium (Rocephin) 2 gm Q24H IVP Last administered on 01/28/21at 20:40; Start 01/28/21 at 21:00; Stop 01/29/21 at 08:55; Status DC Doxycycline Hyclate (Vibra-Tab) 100 mg BID PO ; Start 01/28/21 at 21:00; Status UNV Albuterol/ Ipratropium (Duoneb) 3 ml STK-MED ONCE .ROUTE ; Start 01/28/21 at 11:43; Stop 01/28/21 at 11:43; Status DC Atorvastatin Calcium (Lipitor) 20 mg QHS PO Last administered on 02/01/21at 21:08; Start 01/28/21 at 21:00 Pantoprazole Sodium (Protonix) 40 mg DAILYAC PO Last administered on 02/02/21 06:27; Start 01/29/21 at 07:30 Lactobacillus Rhamnosus (Culturelle) 1 cap BID PO Last administered on 02/02/21at 08:25; Start 01/28/21 at 21:00 Piperacillin Sod/ Tazobactam Sod 3.375 gm/Sodium Chloride 50 ml @ 100 mls/hr Q6HRS IV Last administered on 02/01/21at 12:27; Start 01/29/21 at 12:00; Stop 02/01/21 at 13:32; Status DC Potassium Chloride (Klor-Con) 40 meq 1X ONCE PO Last administered on 01/29/21at 14:04; Start 01/29/21 at 13:00; Stop 01/29/21 at 13:01; Status DC Doxycycline Hyclate (Vibra-Tab) 100 mg BID PO Last administered on 02/02/21at 08:25; Start 01/30/21 at 09:00 Furosemide (Lasix) 20 mg 1X ONCE IVP ; Start 02/01/21 at 10:30; Stop 02/01/21 at 10:31; Status UNV Amoxicillin/ Clavulanate Potassium (Augmentin 875/ 125mg) 1 tab BID PO Last administered on 02/02/21 08:25; Start 02/01/21 at 21:00 Active Scripts Active Codeine-Guaifen 10-100 mg/5 ml (Guaifenesin/Codeine Phosphate) 120 Ml Liquid 120 Ml PO TID PRN PRN 7 Days Augmentin 500-125 Tablet (Amoxicillin/Potassium Clav) 1 Each Tablet 1 Tab PO BID Pulmicort Flexhaler (Budesonide) 180 Mcg Aer.pow.ba 2 Puff IH BID Mucinex Dm Er 600-30 Mg Tablet (Guaifenesin/Dextromethorphan) 1 Each Tab.er.12h 1 Tab PO BID MDD 1 Percocet 5-325 Mg Tablet (Oxycodone/Acetaminophen) 1 Each Tablet 1 Tab PO TID MDD 1 Reported Flovent 100MCG Diskus (Fluticasone Propionate) 100 Mcg Disk.w.dev 1 Puff IH BID Serevent Diskus (Salmeterol Xinafoate) 50 Mcg Disk.w.dev 50 Mcg IH BID Duoneb 0.5-3(2.5) Mg/3 Ml (Albuterol/Ipratropium) 3 Ml Ampul.neb 3 Ml IH TID Aspirin 81 Mg Tab.chew 1 Tab PO DAILY Lisinopril 2.5 Mg Tablet 1 Tab PO HS Montelukast Sodium Tablet (Montelukast Sodium) 10 Mg Tablet 10 Mg PO HS Proair Hfa Inhaler (Albuterol Sulfate) 8.5 Gm Hfa.aer.ad 2 Puff IH PRN Q4-6HRS PRN Vitals/I & O Vital Sign - Last 24 Hours 02/01/21 02/01/21 02/01/21 02/01/21 11:00 11:44 15:00 16:46 Temp 98.3 98.0 98.3 98.0 Pulse 81 75 Resp 18 19 B/P (MAP) 108/56 (73) 121/52 (75) Pulse Ox 92 94 95 O2 Delivery Nasal Cannula Nasal Cannula Nasal Cannula Nasal Cannula O2 Flow Rate 3.0 3.5 3.0 4.0 02/01/21 02/01/21 02/01/21 02/01/21 19:00 20:00 20:49 20:51 Temp 97.6 97.6 Pulse 72 Resp 19 B/P (MAP) 140/57 (84) Pulse Ox 97 94 94 O2 Delivery Nasal Cannula Nasal Cannula Nasal Cannula Nasal Cannula O2 Flow Rate 3.0 4.0 4.0 4.0 02/01/21 02/01/21 02/01/21 02/02/21 21:09 21:39 23:00 03:00 Temp 98.4 98.3 98.4 98.3 Pulse 99 77 Resp 19 19 B/P (MAP) 117/56 (76) 146/54 (84) Pulse Ox 94 92 O2 Delivery Nasal Cannula Nasal Cannula Nasal Cannula Nasal Cannula O2 Flow Rate 3.0 3.0 02/02/21 02/02/21 02/02/21 02/02/21 07:00 07:19 07:21 08:25 Temp 98.1 98.1 Pulse 64 Resp 18 B/P (MAP) 125/64 (84) Pulse Ox 92 98 98 O2 Delivery Room Air Nasal Cannula Nasal Cannula Nasal Cannula O2 Flow Rate 4.0 4.0 4.0 02/02/21 09:24 O2 Delivery Nasal Cannula O2 Flow Rate 4.0 Intake and Output 02/01/21 02/01/21 02/02/21 15:00 23:00 07:00 Intake Total 100 ml Balance 100 ml Justicifation of Admission Dx: Justifications for Admission: Justification of Admission Dx: Yes INEZ MOSER MD February 02, 2021 10:01
--- NOTE | 2021-02-02 10:04 | NUR ---
SW following. Discussed with RN, pt from home with spouse, uses 4L oxygen at home, cardiac diet. PT/OT recommending home independent. Pt throwing up today. RN advised no SW needs. SW will continue to follow.
--- NOTE | 2021-02-02 10:23 | PDOC ---
Date of Service: DATE: 02/02/21 TIME: 10:20 Subjective: Subjective: Nausea yesterday, no vomiting. Still has upset stomach this morning. Not too hungry. Wonders if antibiotics are making her feel sick. Objective: Objective: Stool charted 02/01. Vital Signs: Vital Signs Date Time Temp Pulse Resp B/P (MAP) Pulse Ox O2 Delivery O2 Flow Rate FiO2 02/02/21 09:24 Nasal Cannula 4.0 02/02/21 07:21 98 02/02/21 07:00 98.1 64 18 125/64 (84) 98.1 Labs: Laboratory Tests Test 02/02/21 04:17 White Blood Count 6.5 x10^3/uL Red Blood Count 3.87 x10^6/uL Hemoglobin 11.6 g/dL Hematocrit 35.2 % Mean Corpuscular Volume 91 fL Mean Corpuscular Hemoglobin 30 pg Mean Corpuscular Hemoglobin Concent 33 g/dL Red Cell Distribution Width 13.0 % Platelet Count 305 x10^3/uL Neutrophils (%) (Auto) 63 % Lymphocytes (%) (Auto) 22 % Monocytes (%) (Auto) 10 % Eosinophils (%) (Auto) 4 % Basophils (%) (Auto) 1 % Neutrophils # (Auto) 4.1 x10^3/uL Lymphocytes # (Auto) 1.4 x10^3/uL Monocytes # (Auto) 0.6 x10^3/uL Eosinophils # (Auto) 0.2 x10^3/uL Basophils # (Auto) 0.1 x10^3/uL BLOOD CULTURE Final NO GROWTH AFTER 5 DAYS PE: GEN: NAD - was resting LUNGS: NC, still loud cough, diminished breath sounds HEART: RRR ABD: NABS, S/ND/NT NEURO/PSYCH: A & O 3 A/P: COPD exacerbation Nausea/dyspepsia -- Try BID PPI. Justicifation of Admission Dx: Justifications for Admission: Justification of Admission Dx: Yes EDWARDO MORRISON February 02, 2021 10:23
[2021-02-02 11:00] VITALS: BP 129/66
[2021-02-02 15:00] VITALS: BP 138/68
[2021-02-02 19:00] VITALS: BP 183/62
[2021-02-02] MEDS: ATORVASTATIN CALCIUM 20 MG TABLET PO SCH (20:30)
[2021-02-02] MEDS: MONTELUKAST SODIUM 10 MG TABLET. PO SCH (20:31)
[2021-02-02 23:00] VITALS: BP 169/60
[2021-02-03] MEDS: guaiFENesin/CODEINE 100mg/10mg 5 ML LIQUID PO PRN ×2 (02:25→14:31)
[2021-02-03 03:00] VITALS: BP 150/65
[2021-02-03 07:00] VITALS: BP_SYST 133; BP_SYST 82; BP_DIAS 52; BP_DIAS 61
[2021-02-03] MEDS: BUDESONIDE 0.5 MG/2 ML NEBU. NEB SCH (08:24)
[2021-02-03] MEDS: IPRATRPIUM/ALBUTEROL 0.5/2.5MG 3 ML NEBU. NEB SCH ×2 (08:24→14:14)
[2021-02-03] MEDS: ASPIRIN CHEWABLE 81 MG TABLET. PO SCH (08:40)
[2021-02-03] MEDS: DOXYCYCLINE HYCLATE 100 MG TABLET PO SCH (08:40)
[2021-02-03] MEDS: PANTOPRAZOLE 40 MG TABLET.DR. PO SCH ×2 (08:40→17:12)
[2021-02-03] MEDS: LACTOBACILLUS RHAMNOSUS GG 1 CAPSULE. PO SCH (08:40)
[2021-02-03] MEDS: oxyCODONE/APAP 5/325 1 TAB TABLET PO SCH ×2 (08:40→14:32)
[2021-02-03] MEDS: AMOXICILLIN/K CLAV 875/125MG TABLET. PO SCH (08:40)
--- NOTE | 2021-02-03 08:46 | PDOC ---
PROGRESS NOTES Date of Service: DATE: 02/03/21 TIME: 08:46 Chief Complaint Chief Complaint IMPRESSION acute on chronic COPD with acute exacerbation, acute on chronic hypercarbic and hypoxic respiratory failure SIRS, sepsis new abdominal distention, CAD hx, prior stent, CHF stable weakness, and debilit, PT and OT Emphysema and multiple pulmonary nodules, none of which show abnormal FDG uptake suspicious for an FDG avid malignancy. Ongoing follow-up would be prudent. follow-up in the office with Dr. Joy for a repeat PET scan O2 SUPPORT OURCE: BLOOD ENTR: 01/28/[address]: CARLA MANCIA DO [facility]: ORDERED: BCULT Procedure Result BLOOD CULTURE Preliminary NO GROWTH AFTER 4 DAYS D/W RN 02-01 History of Present Illness History of Present Illness still on doxy and AUGMENTIN 02-03 There is an enlarging pulmonary nodule in the right upper lobe that now measures up to 1.4 cm versus 0.7 cm previously. Findings are suspicious for malignancy. PET CT could better evaluate. still cough, some sputum may DC telemetry, stable follow-up in the office with Dr. Joy for a repeat PET scan O2 SUPPORT D/W RN Continue antibiotics per infectious disease-- follow cultures, await sputum culture (gm positive cocci/rods), on PO Augmentin/doxy Continue steroids Patient will need to follow-up in the office with PULM for a repeat PET scan check C Diff for completeness considering atbx use. still on doxy and zosyn 5- There is an enlarging pulmonary nodule in the right upper lobe that now measures up to 1.4 cm versus 0.7 cm previously. Findings are suspicious for malignancy. PET CT could better evaluate. still cough, some sputum may DC telemetry, stable follow-up in the office with Dr. Joy for a repeat PET scan O2 SUPPORT D/W RN 02-01 D/W RN fever , cont abx, follow cultures ID and pulm consuilt following she is fatigued but feels like she is breathing about the same Mild left effusion and vague bilateral infiltrates. This could be atypical pneumonia but appears similar to the prior study. still on doxy and zosyn 5 still cough, some sputum may DC telemetry, stable follow-up in the office with Dr. Joy for a repeat PET scan O2 SUPPORT 02-01 D/W RN OURCE: BLOOD ENTR: 01/28/[address]: CARLA MANCIA DO [facility]: ORDERED: BCULT Procedure Result ------ ------ BLOOD CULTURE Preliminary NO GROWTH AFTER 4 DAYS Vitals Vitals Vital Signs Date Time Temp Pulse Resp B/P (MAP) Pulse Ox O2 Delivery O2 Flow Rate FiO2 02/03/21 08:40 Nasal Cannula 4.0 02/03/21 08:25 98 02/03/21 07:00 97.6 69 17 133/61 (85) 97.6 Physical Exam Physical Exam GENERAL: Alert, oriented x 3 female,lying in bed comfortable HEENT: Normocephalic, atraumatic. Anicteric. NECK: Supple. No JVD. LUNGS: Decreased breath sounds, wheezing improved no accessory muscle use. HEART: S1, S2. No murmurs. ABDOMEN: Soft, Nondistended No rebound or guarding. Bowel sounds present. BACK: No CVA tenderness. EXTREMITIES: No edema, no cyanosis. SKIN: Warm, dry, no generalized rash. NEUROLOGIC: Alert, oriented x 3. Grossly nonfocal. PSYCHIATRIC: Cooperative. PSYCHIATRIC: Appropriate mood and affect. General: Alert, Oriented X3, Cooperative, No acute distress Heart: Regular rate (SR), Other (distant heart sounds) Lungs: Clear, Wheezing, Other (RHONCHI) Abdomen: Normal bowel sounds, Soft, No tenderness Extremities: No clubbing, No cyanosis, No edema Skin: No breakdown, No significant lesion Labs LABS COMMENTS: Has specimen been collected/obtained? Y Procedure Result - GRAM STAIN EVALUATION Final Final GRAM POSITIVE RODS:FEW GRAM POSITIVE COCCI:FEW SQUAMOUS EPI CELL:FEW PMN (WBCs):FEW Unless otherwise specified, Testing Performed by: [address] [id number] For Inquires, the Physician may contact the Microbiology department at [phone] RESPIRATORY CULTURE Preliminary Preliminary FEW Mixed upper respiratory maico on 02/03/21 at 0936 Unless otherwise specified, Testing Performed by: [address] [address] For Inquires, the Physician may contact the Microbiology department at [phone] Assessment and Plan Assessmemt and Plan Problems Medical Problems: (1) Sepsis Status: Acute Comment Review of Relevant I have reviewed the following items aileen (where applicable) has been applied. Labs Laboratory Tests Test 02/02/21 04:17 White Blood Count 6.5 x10^3/uL (4.0-11.0) Red Blood Count 3.87 x10^6/uL (3.50-5.40) Hemoglobin 11.6 g/dL (12.0-15.5) Hematocrit 35.2 % (36.0-47.0) Mean Corpuscular Volume 91 fL (79-100) Mean Corpuscular Hemoglobin 30 pg (25-35) Mean Corpuscular Hemoglobin Concent 33 g/dL (31-37) Red Cell Distribution Width 13.0 % (11.5-14.5) Platelet Count 305 x10^3/uL (140-400) Neutrophils (%) (Auto) 63 % (31-73) Lymphocytes (%) (Auto) 22 % (24-48) Monocytes (%) (Auto) 10 % (0-9) Eosinophils (%) (Auto) 4 % (0-3) Basophils (%) (Auto) 1 % (0-3) Neutrophils # (Auto) 4.1 x10^3/uL (1.8-7.7) Lymphocytes # (Auto) 1.4 x10^3/uL (1.0-4.8) Monocytes # (Auto) 0.6 x10^3/uL (0.0-1.1) Eosinophils # (Auto) 0.2 x10^3/uL (0.0-0.7) Basophils # (Auto) 0.1 x10^3/uL (0.0-0.2) Microbiology 02/01/21 Gram Stain Evaluation - Final, Resulted 02/01/21 Respiratory Culture, Resulted Pending 01/28/21 Blood Culture - Final, Complete NO GROWTH AFTER 5 DAYS Medications Current Medications Ceftriaxone Sodium (Rocephin) 1 gm 1X ONCE IVP Last administered on 01/28/21at 04:27; Start 01/28/21 at 04:00; Stop 01/28/21 at 04:01; Status DC Albuterol/ Ipratropium (Duoneb) 3 ml STK-MED ONCE .ROUTE ; Start 01/28/21 at 04:04; Stop 01/28/21 at 04:05; Status DC Morphine Sulfate (Morphine Sulfate) 5 mg 1X ONCE IV Last administered on 01/28/21at 04:28; Start 01/28/21 at 04:15; Stop 01/28/21 at 04:16; Status DC Albuterol/ Ipratropium (Duoneb) 3 ml 1X ONCE NEB Last administered on 01/28/21at 04:17; Start 01/28/21 at 04:15; Stop 01/28/21 at 04:16; Status DC Sodium Chloride 500 ml @ 500 mls/hr 1X ONCE IV Last administered on 01/28/21at 05:37; Start 01/28/21 at 04:45; Stop 01/28/21 at 05:44; Status DC Albuterol Sulfate (Ventolin Neb Soln) 2.5 mg QID INH ; Start 01/28/21 at 13:00; Status UNV Aspirin (Aspirin Chewable) 81 mg DAILY PO Last administered on 02/03/21 08:40; Start 01/28/21 at 10:00 Guaifenesin/ Codeine Phosphate (Robitussin Ac) 10 ml TID PRN PRN PO COUGH Last administered on 02/03/21 02:25; Start 01/28/21 at 10:00 Albuterol/ Ipratropium (Duoneb) 3 ml TID NEB Last administered on 02/03/21 08:24; Start 01/28/21 at 14:00 Montelukast Sodium (Singulair) 10 mg HS PO Last administered on 02/02/21 20:31; Start 01/28/21 at 21:00 Oxycodone/ Acetaminophen (Percocet 5/325) 1 tab TID PO Last administered on 02/03/21 08:40; Start 01/28/21 at 14:00 Non-Formulary Medication (Budesonide (Pulmicort Flexhaler)) 2 puff BID IH ; Start 01/28/21 at 21:00; Stop 01/28/21 at 10:28; Status DC Lisinopril (Prinivil) 2.5 mg DAILY PO ; Start 01/29/21 at 09:00; Stop 01/28/21 at 12:27; Status DC Potassium Chloride (Klor-Con) 40 meq 1X ONCE PO Last administered on 01/28/21at 11:44; Start 01/28/21 at 10:15; Stop 01/28/21 at 10:20; Status DC Budesonide (Pulmicort) 0.5 mg RTBID NEB Last administered on 02/03/21 08:24; Start 01/28/21 at 12:00 Doxycycline Hyclate (Vibra-Tab) 100 mg BID PO Last administered on 01/29/21at 07:38; Start 01/28/21 at 21:00; Stop 01/29/21 at 08:55; Status DC Doxycycline Hyclate (Vibra-Tab) 100 mg 1X ONCE PO Last administered on 01/28/21at 11:44; Start 01/28/21 at 10:30; Stop 01/28/21 at 10:36; Status DC Ceftriaxone Sodium (Rocephin) 2 gm Q24H IVP Last administered on 01/28/21at 20:40; Start 01/28/21 at 21:00; Stop 01/29/21 at 08:55; Status DC Doxycycline Hyclate (Vibra-Tab) 100 mg BID PO ; Start 01/28/21 at 21:00; Status UNV Albuterol/ Ipratropium (Duoneb) 3 ml STK-MED ONCE .ROUTE ; Start 01/28/21 at 11:43; Stop 01/28/21 at 11:43; Status DC Atorvastatin Calcium (Lipitor) 20 mg QHS PO Last administered on 02/02/21at 20:30; Start 01/28/21 at 21:00 Pantoprazole Sodium (Protonix) 40 mg DAILYAC PO Last administered on 02/02/21at 06:27; Start 01/29/21 at 07:30; Stop 02/02/21 at 10:24; Status DC Lactobacillus Rhamnosus (Culturelle) 1 cap BID PO Last administered on 02/03/21at 08:40; Start 01/28/21 at 21:00 Piperacillin Sod/ Tazobactam Sod 3.375 gm/Sodium Chloride 50 ml @ 100 mls/hr Q6HRS IV Last administered on 02/01/21at 12:27; Start 01/29/21 at 12:00; Stop 02/01/21 at 13:32; Status DC Potassium Chloride (Klor-Con) 40 meq 1X ONCE PO Last administered on 01/29/21at 14:04; Start 01/29/21 at 13:00; Stop 01/29/21 at 13:01; Status DC Doxycycline Hyclate (Vibra-Tab) 100 mg BID PO Last administered on 02/03/21at 08:40; Start 01/30/21 at 09:00 Furosemide (Lasix) 20 mg 1X ONCE IVP ; Start 02/01/21 at 10:30; Stop 02/01/21 at 10:31; Status UNV Amoxicillin/ Clavulanate Potassium (Augmentin 875/ 125mg) 1 tab BID PO Last administered on 02/03/21at 08:40; Start 02/01/21 at 21:00 Pantoprazole Sodium (Protonix) 40 mg BIDAC PO Last administered on 02/03/21at 08:40; Start 02/02/21 at 16:30 Active Scripts Active Codeine-Guaifen 10-100 mg/5 ml (Guaifenesin/Codeine Phosphate) 120 Ml Liquid 120 Ml PO TID PRN PRN 7 Days Augmentin 500-125 Tablet (Amoxicillin/Potassium Clav) 1 Each Tablet 1 Tab PO BID Pulmicort Flexhaler (Budesonide) 180 Mcg Aer.pow.ba 2 Puff IH BID Mucinex Dm Er 600-30 Mg Tablet (Guaifenesin/Dextromethorphan) 1 Each Tab.er.12h 1 Tab PO BID MDD 1 Percocet 5-325 Mg Tablet (Oxycodone/Acetaminophen) 1 Each Tablet 1 Tab PO TID MDD 1 Reported Flovent 100MCG Diskus (Fluticasone Propionate) 100 Mcg Disk.w.dev 1 Puff IH BID Serevent Diskus (Salmeterol Xinafoate) 50 Mcg Disk.w.dev 50 Mcg IH BID Duoneb 0.5-3(2.5) Mg/3 Ml (Albuterol/Ipratropium) 3 Ml Ampul.neb 3 Ml IH TID Aspirin 81 Mg Tab.chew 1 Tab PO DAILY Lisinopril 2.5 Mg Tablet 1 Tab PO HS Montelukast Sodium Tablet (Montelukast Sodium) 10 Mg Tablet 10 Mg PO HS Proair Hfa Inhaler (Albuterol Sulfate) 8.5 Gm Hfa.aer.ad 2 Puff IH PRN Q4-6HRS PRN Vitals/I & O Vital Sign - Last 24 Hours 02/02/21 02/02/21 02/02/21 02/02/21 09:24 11:00 11:25 14:55 Temp 97.8 97.8 Pulse 66 Resp 16 B/P (MAP) 129/66 (87) Pulse Ox 94 98 O2 Delivery Nasal Cannula Room Air Nasal Cannula Room Air O2 Flow Rate 4.0 4.0 02/02/21 02/02/21 02/02/21 02/02/21 15:00 16:00 19:00 20:00 Temp 98.6 97.7 98.6 97.7 Pulse 78 90 Resp 16 16 B/P (MAP) 138/68 (91) 183/62 (102) Pulse Ox 94 92 O2 Delivery Room Air Nasal Cannula Room Air Nasal Cannula O2 Flow Rate 4.0 4.0 02/02/21 02/02/21 02/02/21 02/02/21 20:31 20:32 21:01 23:00 Temp 97.6 97.6 Pulse 81 Resp 20 20 16 B/P (MAP) 169/60 (96) Pulse Ox 94 98 95 95 O2 Delivery Nasal Cannula Nasal Cannula Nasal Cannula Room Air O2 Flow Rate 4.0 4.0 4.0 02/03/21 02/03/21 02/03/21 02/03/21 03:00 07:00 07:35 08:25 Temp 97.7 97.6 97.7 97.6 Pulse 74 69 Resp 16 17 B/P (MAP) 150/65 (93) 133/61 (85) Pulse Ox 92 95 98 O2 Delivery Room Air Room Air Nasal Cannula Nasal Cannula O2 Flow Rate 4.0 4.0 02/03/21 08:40 O2 Delivery Nasal Cannula O2 Flow Rate 4.0 Intake and Output 02/02/21 02/02/21 02/03/21 15:00 23:00 07:00 Output Total 0 ml Balance 0 ml Justicifation of Admission Dx: Justifications for Admission: Justification of Admission Dx: Yes INEZ MOSER MD February 03, 2021 08:46
--- NOTE | 2021-02-03 09:14 | PDOC ---
PULMONARY PROGRESS NOTES DATE: 02/03/21 TIME: 09:13 Subjective remains on 4 L nasal cannula no increased SOA . Cough (not resolved yet) a-febrile Vitals Vital Signs Date Time Temp Pulse Resp B/P (MAP) Pulse Ox O2 Delivery O2 Flow Rate FiO2 02/03/21 08:40 Nasal Cannula 4.0 02/03/21 08:25 98 02/03/21 07:00 97.6 69 17 133/61 (85) 97.6 ROS: No Nausea, No Chest Pain, No Abdominal Pain General: Alert, Oriented X4 HEENT: Other Lungs: Clear Cardiovascular: S1, S2 Abdomen: Soft, Non-tender Neuro Exam: Alert, Oriented Extremities: No Edema Skin: Warm, Dry Labs Laboratory Tests Test 02/02/21 04:17 White Blood Count 6.5 x10^3/uL (4.0-11.0) Red Blood Count 3.87 x10^6/uL (3.50-5.40) Hemoglobin 11.6 g/dL (12.0-15.5) Hematocrit 35.2 % (36.0-47.0) Mean Corpuscular Volume 91 fL (79-100) Mean Corpuscular Hemoglobin 30 pg (25-35) Mean Corpuscular Hemoglobin Concent 33 g/dL (31-37) Red Cell Distribution Width 13.0 % (11.5-14.5) Platelet Count 305 x10^3/uL (140-400) Neutrophils (%) (Auto) 63 % (31-73) Lymphocytes (%) (Auto) 22 % (24-48) Monocytes (%) (Auto) 10 % (0-9) Eosinophils (%) (Auto) 4 % (0-3) Basophils (%) (Auto) 1 % (0-3) Neutrophils # (Auto) 4.1 x10^3/uL (1.8-7.7) Lymphocytes # (Auto) 1.4 x10^3/uL (1.0-4.8) Monocytes # (Auto) 0.6 x10^3/uL (0.0-1.1) Eosinophils # (Auto) 0.2 x10^3/uL (0.0-0.7) Basophils # (Auto) 0.1 x10^3/uL (0.0-0.2) Medications Active Scripts Medications Dose Route/Sig Max Daily Dose Days Date Category Codeine-Guaifen 10-100 mg/5 ml (Guaifenesin/Codeine Phosphate) 120 Ml Liquid 120 Ml PO TID PRN PRN 7 03/11/19 Rx Augmentin 500-125 Tablet (Amoxicillin/Potassium Clav) 1 Each Tablet 1 Tab PO BID 03/11/19 Rx Pulmicort Flexhaler (Budesonide) 180 Mcg Aer.pow.ba 2 Puff IH BID 03/11/19 Rx Mucinex Dm Er 600-30 Mg Tablet (Guaifenesin/Dextromethorphan) 1 Each Tab.er.12h 1 Tab PO BID MDD 1 03/11/19 Rx Percocet 5-325 Mg Tablet (Oxycodone/Acetaminophen) 1 Each Tablet 1 Tab PO TID MDD 1 03/11/19 Rx Flovent 100MCG Diskus (Fluticasone Propionate) 100 Mcg Disk.w.dev 1 Puff IH BID 07/11/17 Reported Serevent Diskus (Salmeterol Xinafoate) 50 Mcg Disk.w.dev 50 Mcg IH BID 07/09/14 Reported Duoneb 0.5-3(2.5) Mg/3 Ml (Albuterol/Ipratropium) 3 Ml Ampul.neb 3 Ml IH TID 07/09/14 Reported Aspirin 81 Mg Tab.chew 1 Tab PO DAILY 07/09/14 Reported Lisinopril 2.5 Mg Tablet 1 Tab PO HS 07/09/14 Reported Montelukast Sodium Tablet (Montelukast Sodium) 10 Mg Tablet 10 Mg PO HS 07/09/14 Reported Proair Hfa Inhaler (Albuterol Sulfate) 8.5 Gm Hfa.aer.ad 2 Puff IH PRN Q4-6HRS PRN 07/09/14 Reported Comments 01/31/21 CXR Mild left effusion and vague bilateral infiltrates. This could be atypical pneumonia but appears similar to the prior study. CT chest IMPRESSION: 1. There is an enlarging pulmonary nodule in the right upper lobe that now measures up to 1.4 cm versus 0.7 cm previously. Findings are suspicious for malignancy. PET CT could better evaluate. 2. Multiple additional noncalcified pulmonary nodules, the majority of which are stable. There is a somewhat vague nodule in the left upper lobe that is new. Continued follow-up imaging to ensure stability. 3. Emphysema with bibasilar scarring is bronchial wall thickening. 4. Coronary artery calcifications and mild ectasia of the ascending thoracic aorta. 5. Borderline enlarged mediastinal lymph nodes, nonspecific Impression . ASSESSMENT 1. Acute on chronic hypoxic respiratory failure secondary to acute exacerbation of chronic obstructive pulmonary disease and acute bronchitis.--stable/improved 2. Abnormal CT chest dated 01/28/2021 with increase in the size of the nodule of 1.4 cm compared to the previous 0.7 cm in the right upper lobe. This is the same nodule, which was 15 mm in size in 01/2020. PET scan in the past had not shown any hypermetabolic activity. There are other bilateral lung nodules as well. The nodules have been waxing and waning and likely inflammatory in etiology. We will consider repeating a PET scan as an outpatient. Her blood test for cancer antigens was negative previously. 3. The patient with severe oxygen dependent chronic obstructive pulmonary disease. 4. Abdominal distention per primary care physician--resolved . Plan . RECOMMENDATIONS: Continue supplemental oxygen to keep oxygen saturations greater than 92%, remains on 4 liters NC Continue bronchodilators and Pulmicort symptomatic treatment of cough Continue antibiotics per infectious disease-- follow cultures, await sputum culture (gm positive cocci/rods), on PO Augmentin/doxy Continue steroids Patient will need to follow-up in the office with me for a repeat PET scan DVT/GI prophylaxis Discussed with GUY AMOR MD February 03, 2021 09:14
--- NOTE | 2021-02-03 10:21 | PDOC ---
Date of Service: DATE: 02/03/21 TIME: 10:20 Subjective: Subjective: Bad coughing fit overnight but feels better stomach-[place]. Tolerating diet. Does have diarrhea now. Objective: Vital Signs: Vital Signs Date Time Temp Pulse Resp B/P (MAP) Pulse Ox O2 Delivery O2 Flow Rate FiO2 02/03/21 08:40 Nasal Cannula 4.0 02/03/21 08:25 98 02/03/21 07:00 97.6 69 17 133/61 (85) 97.6 Labs: GRAM STAIN EVALUATION Final Final GRAM POSITIVE RODS:FEW GRAM POSITIVE COCCI:FEW SQUAMOUS EPI CELL:FEW PMN (WBCs):FEW Unless otherwise specified, Testing Performed by: [address] [id number] For Inquires, the Physician may contact the Microbiology department at [phone] RESPIRATORY CULTURE Preliminary Preliminary FEW Mixed upper respiratory maico on 02/03/21 at 0936 Unless otherwise specified, Testing Performed by: [address] [address] For Inquires, the Physician may contact the Microbiology department at [phone] PE: GEN: NAD LUNGS: NC, loud cough HEART: RRR ABD: NABS, S/ND/NT NEURO/PSYCH: A & O 3 A/P: COPD exacerbation Nausea/dyspepsia - better on PPI Diarrhea -- Continue PPI, check C Diff for completeness considering atbx use. Justicifation of Admission Dx: Justifications for Admission: Justification of Admission Dx: Yes EDWARDO MORRISON February 03, 2021 10:21
[2021-02-03 11:00] VITALS: BP 149/72
--- NOTE | 2021-02-03 13:18 | PDOC ---
Infectious Disease Note Subjective Subjective Better. Wants to go home One loose stool today. No cramps or bloating Ate well Less cough Abdominal pain has improved. No fever/chills Vital Sign Vital Signs Vital Signs Date Time Temp Pulse Resp B/P (MAP) Pulse Ox O2 Delivery O2 Flow Rate FiO2 02/03/21 11:00 98.3 83 17 149/72 (97) 92 Nasal Cannula 3.0 98.3 Physical Exam PHYSICAL EXAM GENERAL: Alert, oriented x 3 female,lying in bed comfortable HEENT: Normocephalic, atraumatic. Anicteric. NECK: Supple. No JVD. LUNGS: Decreased breath sounds, wheezing improved no accessory muscle use. HEART: S1, S2. No murmurs. ABDOMEN: Soft, Nondistended No rebound or guarding. Bowel sounds present. BACK: No CVA tenderness. EXTREMITIES: No edema, no cyanosis. SKIN: Warm, dry, no generalized rash. NEUROLOGIC: Alert, oriented x 3. Grossly nonfocal. PSYCHIATRIC: Cooperative. PSYCHIATRIC: Appropriate mood and affect. Labs Micro Microbiology 02/01/21 Gram Stain Evaluation - Final, Resulted 02/01/21 Respiratory Culture - Preliminary, Resulted 01/28/21 Blood Culture - Final, Complete NO GROWTH AFTER 5 DAYS Objective Assessment Fever. better Leukocytosis also on steroids, improved COPD exacerbation.Pulmonary nodule worsened on CT. cults with mixed maico ALLERGIES TO AMOXICILLIN, has tolerated Augmentin well. Abdominal discomfort. Improved but now with nausea and vomiting Coronary artery disease. ALLERGIC REACTION TO LISINOPRIL. Plan Plan of Care Ok d/c home on po Doxy through 02/04 and augmentin through 02/06 Is eating and No F/c/s/bloating or cramping ID to sign off TIFFANIE JAY MD February 03, 2021 13:18
--- NOTE | 2021-02-03 14:33 | NUR ---
Pt had a soft stool, too formed to send to lab for cdiff sample at this time.
--- NOTE | 2021-02-03 14:58 | PDOC3 ---
Discharge Summary Date of Admission: Jan 28, 2021 Date of Discharge: February 03, 2021 Follow-Up: 1-2 days Admitting Diagnosis comment: HOSPITAL COURSE HPI History of Present Illness History of Present Illness Ms. Bustos is a 70-year-old female past medical history of COPD on 4 L of oxygen at home, She came to the ER for abd distention and pain, worsenign over 3 weeks. She feels bloated and has pain in the afternoon and evenings most days, across the upper part of her abdomen, from right to left. Not acute pain after eating, no change in gas or belching, no nausea or vomitnig or change in stools. She also noted increasing shortness of breath, with cough that has now become productive in the past 2 days. She denies any history of congestive heart failure, but has prior cardiac stent. she is on 4 liters oxygen now and feels like she is breathing her normal way, she follows , She has had both of her Covid vaccines. COMPLICATIONS NONE D/C MEDS SEE MAR D/C CONDITION GOOD PROGNOSIS EXCELLENT WITH COMPLIANCE CONSULTS PULM, ID, CARDIOLOGY DISCHARGE DX Chief Complaint IMPRESSION acute on chronic COPD with acute exacerbation, acute on chronic hypercarbic and hypoxic respiratory failure SIRS, sepsis new abdominal distention, CAD hx, prior stent, CHF stable weakness, and debilit, PT and OT Emphysema and multiple pulmonary nodules, none of which show abnormal FDG uptake suspicious for an FDG avid malignancy. Ongoing follow-up would be prudent. follow-up in the office with Dr. Joy for a repeat PET scan O2 SUPPORT OURCE: BLOOD ENTR: 01/28/21 OT : CARLA MANCIA DO [facility]: ORDERED: BCULT Procedure Result BLOOD CULTURE Preliminary NO GROWTH AFTER 4 DAYS D/W JOSEY 02-01 History of Present Illness History of Present Illness still on doxy and AUGMENTIN 02-03 There is an enlarging pulmonary nodule in the right upper lobe that now measures up to 1.4 cm versus 0.7 cm previously. Findings are suspicious for malignancy. PET CT could better evaluate. still cough, some sputum may DC telemetry, stable follow-up in the office with Dr. Joy for a repeat PET scan O2 SUPPORT D/W JOSEY Continue antibiotics per infectious disease-- follow cultures, await sputum culture (gm positive cocci/rods), on PO Augmentin/doxy Continue steroids Patient will need to follow-up in the office with PULM for a repeat PET scan check C Diff for completeness considering atbx use. OK WITH PULM AND ID FOR D/C HOME TODAY WITH HOME HEALTH still on doxy and zosyn 02-02 There is an enlarging pulmonary nodule in the right upper lobe that now measures up to 1.4 cm versus 0.7 cm previously. Findings are suspicious for malignancy. PET CT could better evaluate. still cough, some sputum may DC telemetry, stable follow-up in the office with Dr. Joy for a repeat PET scan O2 SUPPORT D/W JOSEY 02-01 D/W JOSEY fever , cont abx, follow cultures ID and pulm consuilt following she is fatigued but feels like she is breathing about the same Mild left effusion and vague bilateral infiltrates. This could be atypical pneumonia but appears similar to the prior study. still on doxy and zosyn 02-01 still cough, some sputum may DC telemetry, stable follow-up in the office with Dr. Joy for a repeat PET scan O2 SUPPORT 02-01 D/W RN OURCE: BLOOD ENTR: 01/28/21 OTHR MANLEY: CARLA MANCIA DO [facility]: ORDERED: BCULT Procedure Result BLOOD CULTURE Preliminary NO GROWTH AFTER 4 DAYS Vitals Vitals Vital Signs Date Time Temp Pulse Resp B/P (MAP) Pulse Ox O2 Delivery O2 Flow Rate FiO2 02/03/21 08:40 Nasal Cannula 4.0 02/03/21 08:25 98 02/03/21 07:00 97.6 69 17 133/61 (85) 97.6 Physical Exam Physical Exam GENERAL: Alert, oriented x 3 female,lying in bed comfortable HEENT: Normocephalic, atraumatic. Anicteric. NECK: Supple. No JVD. LUNGS: Decreased breath sounds, wheezing improved no accessory muscle use. HEART: S1, S2. No murmurs. ABDOMEN: Soft, Nondistended No rebound or guarding. Bowel sounds present. BACK: No CVA tenderness. EXTREMITIES: No edema, no cyanosis. SKIN: Warm, dry, no generalized rash. NEUROLOGIC: Alert, oriented x 3. Grossly nonfocal. PSYCHIATRIC: Cooperative. PSYCHIATRIC: Appropriate mood and affect. General: Alert, Oriented X3, Cooperative, No acute distress Heart: Regular rate (SR), Other (distant heart sounds) Lungs: Clear, Wheezing, Other (RHONCHI) Abdomen: Normal bowel sounds, Soft, No tenderness Extremities: No clubbing, No cyanosis, No edema Skin: No breakdown, No significant lesion Labs LABS COMMENTS: Has specimen been collected/obtained? Y Procedure Result GRAM STAIN EVALUATION Final Final GRAM POSITIVE RODS:FEW GRAM POSITIVE COCCI:FEW SQUAMOUS EPI CELL:FEW PMN (WBCs):FEW Unless otherwise specified, Testing Performed by: [facility] [place] [address] For Inquires, the Physician may contact the Microbiology department at [phone] RESPIRATORY CULTURE Preliminary Preliminary FEW Mixed upper respiratory maico on 02/03/21 at 0936 Unless otherwise specified, Testing Performed by: [address] [address] For Inquires, the Physician may contact the Microbiology FINAL DIAGNOSIS Problems Medical Problems: (1) Sepsis Status: Acute Brief Hospital Course Ms. Bustos is a 70 old [sex] who presented with [ ] Discharge Medications Current Medications Ceftriaxone Sodium (Rocephin) 1 gm 1X ONCE IVP Last administered on 01/28/21at 04:27; Start 01/28/21 at 04:00; Stop 01/28/21 at 04:01; Status DC Albuterol/ Ipratropium (Duoneb) 3 ml STK-MED ONCE .ROUTE ; Start 01/28/21 at 04:04; Stop 01/28/21 at 04:05; Status DC Morphine Sulfate (Morphine Sulfate) 5 mg 1X ONCE IV Last administered on 01/28/21at 04:28; Start 01/28/21 at 04:15; Stop 01/28/21 at 04:16; Status DC Albuterol/ Ipratropium (Duoneb) 3 ml 1X ONCE NEB Last administered on 01/28/21at 04:17; Start 01/28/21 at 04:15; Stop 01/28/21 at 04:16; Status DC Sodium Chloride 500 ml @ 500 mls/hr 1X ONCE IV Last administered on 01/28/21at 05:37; Start 01/28/21 at 04:45; Stop 01/28/21 at 05:44; Status DC Albuterol Sulfate (Ventolin Neb Soln) 2.5 mg QID INH ; Start 01/28/21 at 13:00; Status UNV Aspirin (Aspirin Chewable) 81 mg DAILY PO Last administered on 02/03/21 08:40; Start 01/28/21 at 10:00 Guaifenesin/ Codeine Phosphate (Robitussin Ac) 10 ml TID PRN PRN PO COUGH Last administered on 02/03/21 14:31; Start 01/28/21 at 10:00 Albuterol/ Ipratropium (Duoneb) 3 ml TID NEB Last administered on 02/03/21 14:14; Start 01/28/21 at 14:00 Montelukast Sodium (Singulair) 10 mg HS PO Last administered on 02/02/21 20:31; Start 01/28/21 at 21:00 Oxycodone/ Acetaminophen (Percocet 5/325) 1 tab TID PO Last administered on 5/5/21at 14:32; Start 01/28/21 at 14:00 Non-Formulary Medication (Budesonide (Pulmicort Flexhaler)) 2 puff BID IH ; Start 01/28/21 at 21:00; Stop 01/28/21 at 10:28; Status DC Lisinopril (Prinivil) 2.5 mg DAILY PO ; Start 01/29/21 at 09:00; Stop 01/28/21 at 12:27; Status DC Potassium Chloride (Klor-Con) 40 meq 1X ONCE PO Last administered on 01/28/21at 11:44; Start 01/28/21 at 10:15; Stop 01/28/21 at 10:20; Status DC Budesonide (Pulmicort) 0.5 mg RTBID NEB Last administered on 02/03/21at 08:24; Start 01/28/21 at 12:00 Doxycycline Hyclate (Vibra-Tab) 100 mg BID PO Last administered on 01/29/21at 07:38; Start 01/28/21 at 21:00; Stop 01/29/21 at 08:55; Status DC Doxycycline Hyclate (Vibra-Tab) 100 mg 1X ONCE PO Last administered on 01/28/21at 11:44; Start 01/28/21 at 10:30; Stop 01/28/21 at 10:36; Status DC Ceftriaxone Sodium (Rocephin) 2 gm Q24H IVP Last administered on 01/28/21at 20:40; Start 01/28/21 at 21:00; Stop 01/29/21 at 08:55; Status DC Doxycycline Hyclate (Vibra-Tab) 100 mg BID PO ; Start 01/28/21 at 21:00; Status UNV Albuterol/ Ipratropium (Duoneb) 3 ml STK-MED ONCE .ROUTE ; Start 01/28/21 at 11:43; Stop 01/28/21 at 11:43; Status DC Atorvastatin Calcium (Lipitor) 20 mg QHS PO Last administered on 02/02/21at 20:30; Start 01/28/21 at 21:00 Pantoprazole Sodium (Protonix) 40 mg DAILYAC PO Last administered on 02/02/21at 06:27; Start 01/29/21 at 07:30; Stop 02/02/21 at 10:24; Status DC Lactobacillus Rhamnosus (Culturelle) 1 cap BID PO Last administered on 02/03/21at 08:40; Start 01/28/21 at 21:00 Piperacillin Sod/ Tazobactam Sod 3.375 gm/Sodium Chloride 50 ml @ 100 mls/hr Q6HRS IV Last administered on 02/01/21at 12:27; Start 01/29/21 at 12:00; Stop 02/01/21 at 13:32; Status DC Potassium Chloride (Klor-Con) 40 meq 1X ONCE PO Last administered on 01/29/21at 14:04; Start 01/29/21 at 13:00; Stop 01/29/21 at 13:01; Status DC Doxycycline Hyclate (Vibra-Tab) 100 mg BID PO Last administered on 02/03/21at 08:40; Start 01/30/21 at 09:00 Furosemide (Lasix) 20 mg 1X ONCE IVP ; Start 02/01/21 at 10:30; Stop 02/01/21 at 10:31; Status UNV Amoxicillin/ Clavulanate Potassium (Augmentin 875/ 125mg) 1 tab BID PO Last administered on 02/03/21at 08:40; Start 02/01/21 at 21:00 Pantoprazole Sodium (Protonix) 40 mg BIDAC PO Last administered on 02/03/21at 08:40; Start 02/02/21 at 16:30 Active Scripts Active Codeine-Guaifen 10-100 mg/5 ml (Guaifenesin/Codeine Phosphate) 120 Ml Liquid 120 Ml PO TID PRN PRN 7 Days Augmentin 500-125 Tablet (Amoxicillin/Potassium Clav) 1 Each Tablet 1 Tab PO BID Pulmicort Flexhaler (Budesonide) 180 Mcg Aer.pow.ba 2 Puff IH BID Mucinex Dm Er 600-30 Mg Tablet (Guaifenesin/Dextromethorphan) 1 Each Tab.er.12h 1 Tab PO BID MDD 1 Percocet 5-325 Mg Tablet (Oxycodone/Acetaminophen) 1 Each Tablet 1 Tab PO TID MDD 1 Reported Flovent 100MCG Diskus (Fluticasone Propionate) 100 Mcg Disk.w.dev 1 Puff IH BID Serevent Diskus (Salmeterol Xinafoate) 50 Mcg Disk.w.dev 50 Mcg IH BID Duoneb 0.5-3(2.5) Mg/3 Ml (Albuterol/Ipratropium) 3 Ml Ampul.neb 3 Ml IH TID Aspirin 81 Mg Tab.chew 1 Tab PO DAILY Lisinopril 2.5 Mg Tablet 1 Tab PO HS Montelukast Sodium Tablet (Montelukast Sodium) 10 Mg Tablet 10 Mg PO HS Proair Hfa Inhaler (Albuterol Sulfate) 8.5 Gm Hfa.aer.ad 2 Puff IH PRN Q4-6HRS PRN Vital Signs Vital Signs Date Time Temp Pulse Resp B/P (MAP) Pulse Ox O2 Delivery O2 Flow Rate FiO2 02/03/21 14:32 Nasal Cannula 4.0 02/03/21 14:14 95 02/03/21 11:00 98.3 83 17 149/72 (97) 98.3 Labs Laboratory Tests Test 02/02/21 04:17 White Blood Count 6.5 x10^3/uL (4.0-11.0) Red Blood Count 3.87 x10^6/uL (3.50-5.40) Hemoglobin 11.6 g/dL (12.0-15.5) Hematocrit 35.2 % (36.0-47.0) Mean Corpuscular Volume 91 fL (79-100) Mean Corpuscular Hemoglobin 30 pg (25-35) Mean Corpuscular Hemoglobin Concent 33 g/dL (31-37) Red Cell Distribution Width 13.0 % (11.5-14.5) Platelet Count 305 x10^3/uL (140-400) Neutrophils (%) (Auto) 63 % (31-73) Lymphocytes (%) (Auto) 22 % (24-48) Monocytes (%) (Auto) 10 % (0-9) Eosinophils (%) (Auto) 4 % (0-3) Basophils (%) (Auto) 1 % (0-3) Neutrophils # (Auto) 4.1 x10^3/uL (1.8-7.7) Lymphocytes # (Auto) 1.4 x10^3/uL (1.0-4.8) Monocytes # (Auto) 0.6 x10^3/uL (0.0-1.1) Eosinophils # (Auto) 0.2 x10^3/uL (0.0-0.7) Basophils # (Auto) 0.1 x10^3/uL (0.0-0.2) Allergies Allergies Coded Allergies Type Severity Reaction Last Updated Verified NSAIDS (Non-Steroidal Anti-Inflamma Allergy Intermediate ITCH, RASH 07/09/14 Yes amoxicillin Adverse Reaction Intermediate nausea, vomiting 01/28/21 Yes erythromycin base Adverse Reaction Intermediate nausea, vomiting 01/28/21 Yes Justicifation of Admission Dx: Justifications for Admission: Justification of Admission Dx: Yes INEZ MOSER MD February 03, 2021 14:58
[2021-02-03 15:00] VITALS: BP 134/71
[2021-02-03] MEDS ORDERED: DOXY100C2 PO (15:03)
--- NOTE | 2021-02-03 15:05 | SNU/HH DC ---
DISCHARGE WITH HOME HEALTH DISCHARGE INFORMATION: Discharge Date: February 03, 2021 Final Diagnosis: Problems Medical Problems: (1) Sepsis Status: Acute Condition on Discharge: Stable CODE STATUS: Code Status: Full HOME HEALTH: Face to Face: I certify this patient is under my care and that I, or a nurse practitioner or physician's assistant customer service manager working with me, had a face to face encounter that meets the physician face to face encounter requirements with this patient on []. Medical Complications: COPD Detention For: Assess Cardiopulm Status, Assess & Educate Safety, Assess/Skilled Observatio, Medication Management RN For Eval/Treatment: Yes Physical Therapy For: Evalulation/Treatment Occupational Therapy For: Evaluation/Treatment Speech Language Pathology For: Evaluation/Treatment Home Health Aide For: Self-care OCCUPATIONAL THER For: Community Resources Pt Meets Homebound Status: Limited distance walking POST DISCHARGE ORDERS: Activity Instructions for Disc: No restrictions, Activity as tolerated Weight Bearing Status after Di: No restrictions, As tolerated DIET AFTER DISCHARGE: Cardiac CHECKS AFTER DISCHARGE: Checks after discharge: Check blood press - daily FOLLOW-UP: PCP to follow Home Health: PCP NEXT WEEK PULMONARY 2 WEEKS TREATMENT/EQUIPMENT ORDERS: Adaptive Equipment Issued: None Discharge Respiratory Equipmen: Oxygen, Nebulizer CERTIFICATION STATEMENT: Certification Statement: Certification Statement: Based on the above finding, I certify that this patient is confined to the home and needs intermittent custodial care, physical therapy and/or speech therapy, or continues to need occupational therapy.~ This patient is under my care, and I have initiated the establishment of the plan of care.~ This patient will be followed by myself or a community physician who will periodically review the plan of care. Home Meds Active Scripts Doxycycline Hyclate (DOXYCYCLINE HYCLATE) 100 Mg Capsule, 1 CAP PO BID for COUGH, #14 CAP Prov:INEZ MOSER MD 02/03/21 Guaifenesin/Codeine Phosphate (Codeine-Guaifen 10-100 mg/5 ml) 120 Ml Liquid, 120 ML PO TID PRN PRN for COUGH for 7 Days, LIQUID Prov:MIRA PEDERSEN MD 03/11/19 Amoxicillin/Potassium Clav (AUGMENTIN 500-125 TABLET) 1 Each Tablet, 1 TAB PO BID for cap, #20 TAB Prov:MIRA PEDERSEN MD 03/11/19 Budesonide (PULMICORT FLEXHALER) 180 Mcg Aer.pow.ba, 2 PUFF IH BID for copd, #1 INHALER 6 Refills Prov:MIRA PEDERSEN MD 03/11/19 Guaifenesin/Dextromethorphan (MUCINEX DM ER 600-30 MG TABLET) 1 Each Tab.er.12h, 1 TAB PO BID for cough MDD 1, #14 TAB.SR Prov:MIRA PEDERSEN MD 03/11/19 Oxycodone/Apap 5-325 (PERCOCET 5-325 MG TABLET ) 1 Each Tablet, 1 TAB PO TID for cp pleuritic MDD 1, #30 TAB Prov:MIRA PEDERSEN MD 03/11/19 Reported Medications Fluticasone Propionate (FLOVENT 100MCG DISKUS) 100 Mcg Disk.w.dev, 1 PUFF IH BID, #1 INHALER 5 Refills 07/11/17 Salmeterol Xinafoate (SEREVENT DISKUS) 50 Mcg Disk.w.dev, 50 MCG IH BID 07/09/14 Ipratropium/Albuterol Sulfate (DUONEB 0.5-3(2.5) MG/3 ML) 3 Ml Ampul.neb, 3 ML IH TID 07/09/14 Aspirin (ASPIRIN) 81 Mg Tab.chew, 1 TAB PO DAILY, #30 TAB 3 Refills 07/09/14 Lisinopril (LISINOPRIL) 2.5 Mg Tablet, 1 TAB PO HS, #30 TAB 5 Refills 07/09/14 Montelukast Sodium (MONTELUKAST SODIUM TABLET ) 10 Mg Tablet, 10 MG PO HS for FOR ASTHMA, #30 TAB 0 Refills 07/09/14 Albuterol Sulfate (PROAIR HFA INHALER) 8.5 Gm Hfa.aer.ad, 2 PUFF IH PRN Q4-6HRS PRN for SHORTNESS OF BREATH, #1 INHALER 07/09/14 INEZ MOSER MD February 03, 2021 15:05
--- NOTE | 2021-02-03 16:57 | NUR ---
Augmentin 500/125 1 tab PO BID x 10 days called to [facility].
--- NOTE | 2021-02-03 17:30 | NUR ---
Pt. discharged to home with Rx, verbalized understanding of discharge instructions.
== END 2021-02-03 18:14 | disposition home health service (06) | DRG 871 ==
LOC: ER 03:37 → 2 NORTH 05:40 → 4 NORTH 02-01 07:51
PROVIDERS: ADMIT Internal Medicine; ATTEND Internal Medicine
DX: A41.9 Sepsis, unspecified organism (principal); J96.22 Acute and chronic respiratory failure with hypercapnia; J96.21 Acute and chronic respiratory failure with hypoxia; M19.90 Unspecified osteoarthritis, unspecified site; I25.10 Atherosclerotic heart disease of native coronary artery without angina pectoris; K21.9 Gastro-esophageal reflux disease without esophagitis; F32.9 Major depressive disorder, single episode, unspecified; J43.9 Emphysema, unspecified; J20.9 Acute bronchitis, unspecified; E78.5 Hyperlipidemia, unspecified; I77.810 Thoracic aortic ectasia; R91.1 Solitary pulmonary nodule; I50.9 Heart failure, unspecified; D64.9 Anemia, unspecified; I11.0 Hypertensive heart disease with heart failure; K57.90 Diverticulosis of intestine, part unspecified, without perforation or abscess without bleeding; T46.4X5A Adverse effect of angiotensin-converting-enzyme inhibitors, initial encounter; Y92.89 Other specified places as the place of occurrence of the external cause; Z99.81 Dependence on supplemental oxygen; I25.2 Old myocardial infarction; Z90.710 Acquired absence of both cervix and uterus; Z95.5 Presence of coronary angioplasty implant and graft; Z87.891 Personal history of nicotine dependence; Z87.11 Personal history of peptic ulcer disease; Z79.82 Long term (current) use of aspirin; Z88.0 Allergy status to penicillin; Z88.8 Allergy status to other drugs, medicaments and biological substances; Z80.0 Family history of malignant neoplasm of digestive organs; Z80.1 Family history of malignant neoplasm of trachea, bronchus and lung; Z82.49 Family history of ischemic heart disease and other diseases of the circulatory system
CPT/HCPCS: 36415; 71045; 71250; 74018; 80048; 80053; 80061; 81001; 82803; 83605; 83880; 84484; 85007; 85025; 87040; 87070; 87205; 87449; 93005; 94640; 94760; 96374; 96375; 99285; J0696; J2270; J2543; J7040; 97530-GO; 97530-GP; G0378; J7626

== ENCOUNTER → 2021-02-19 | Outpatient (CLI) | payer BC ==
[2021-02-03 15:00] VITALS: BP 134/71
--- NOTE | 2021-02-19 12:51 | RAD ---
EXAM: Dual modality PET-CT Scan DATE: 02/19/2021 RADIOPHARMACEUTICAL: 12.12 mCi F-18 fluorodeoxyglucose (FDG) IV. CLINICAL HISTORY: Lung nodule. COMPARISON: 01/28/2021 TECHNIQUE: Approximately 45 minutes after tracer administration, routine, attenuation-corrected Posit rosanne Emission Tomography (PET) images were obtained from the level of the base of the skull through th e level of the mid thighs. Tomographic reconstructions are reviewed in coronal, transaxial and sagitt al planes. Non-contrast CT imaging was performed for attenuation correction and localization purpose s only. These images do not constitute a diagnostic-quality CT examination and were not used to diag nose disease independently of the PET images. The blood glucose level was 109 mg/dL at the time of FDG administration. *One or more of the following individualized dose reduction techniques were utilized for this examina tion: 1. Automated exposure control. 2. Adjustment of the mA and/or kV according to patient size. 3. Use of iterative reconstruction technique. FINDINGS: There is increased radiotracer activity within SUV of 6.0 associated with a 1.7 cm right up per lobe nodule. There are lesser degrees of radiotracer activity associated with additional subcenti meter bilateral pulmonary nodules measuring up to 7 mm with maximum SUVs ranging from 1.0-1.5. No abn ormal radiotracer activity above the blood pool seen within hilar or mediastinal lymph nodes. There is mild radiotracer activity within maximum SUV of 1.9 associated with masslike consolidation w ithin the left lung base measuring 4.7 cm. There is less intense radiotracer activity within small re gions of nodular consolidation within the right lower lobe. This is the greater tracer activity in th shannan locations favors a postinfectious or postinflammatory etiology. There is also mild radiotracer ac tivity within SUV of 1.9 along the left lateral chest wall corresponding with a region of lingular at electasis, scarring or infiltrate. There is a focus of relative increased retained tracer activity within SUV of 4.0 within the anterior right hepatic lobe. This is superimposed on heterogeneous background liver activity within maximum S UV of approximately 3.2. The absence of a CT correlate favors benign physiologic heterogeneous activi ty. There is also a focus of intense radiotracer activity within a sigmoid diverticulum which is like ly inflammatory. The superimposed on diverticulosis. There is no convincing diverticulitis on the CT portion of the exam. The CT portion of the exam demonstrates an irregular right upper lobe nodule measuring 1.7 cm with ad jacent satellite nodules measuring 5 mm, 5 mm and 4 mm. There is a 7 mm nodule within the left lung a pex. There is a 6 mm nodule within the anterior left upper lobe. There is a 6 mm nodule within the mi d left upper lobe. There is a former nodule within the superior segment of the left lower lobe. There is a 3 mm nodule within the mid left upper lobe. There is a 3 mm nodule within the lateral right upp er lobe. There is a 3 mm nodule within the anterior right upper lobe. There are 5 mm and 4 mm nodules within the anterior right upper lobe. There is masslike consolidation within the left lung base measuring 4.7 cm. There is smaller nodular consolidation within the medial right lung base measuring 2.3 cm and within the and medial right lowe r lobe measuring 1.4 cm. There is emphysema. The heart is upper normal in size. There is atherosclerosis involving the aorta a nd main aortic branch vessels. There are nonspecific mediastinal and hilar lymph nodes. The visualize d portions the brain demonstrate no acute finding. There is calcified plaque involving the carotid bi furcations. No hepatic lesion is seen on this noncontrast exam. The gallbladder, pancreas, spleen and right adren al gland are unremarkable. There is slight left adrenal gland thickening without a discrete nodule. T he kidneys are unremarkable. There is no bowel obstruction. There is distal colonic diverticulitis. T he bladder is unremarkable. The uterus is absent. There is an ectatic near aneurysmal abdominal aorta measuring 2.9 cm. There are degenerative changes throughout the spine. There is a mild chronic compr ession deformity at L1. IMPRESSION: 1. Suspicious radiotracer avid 1.7 cm right upper lobe pulmonary nodule with a maximum SUV of 6.0, co ncerning for primary bronchogenic neoplasm. 2. Multiple subcentimeter pulmonary nodules measuring up to 7 mm, including a few small satellite nod ules adjacent to the aforementioned dominant nodule within the right upper lobe. These demonstrate ma ximum SUVs ranging from 1.0-1.5, and are likely too small to accurately characterize with PET. Short- term CT follow-up of these additional nodules is recommended. 3. Suspected physiologic heterogeneous radiotracer activity within the anterior right hepatic lobe. N o CT correlate is seen to suggest a mass in this location. There is also suspected inflammatory activ ity associated with a sigmoid diverticulum. There is no CT evidence of diverticulitis. 4. Mild radiotracer activity associated with masslike and nodular consolidation within the left great er than right lower lobes, demonstrating a maximum SUV of 1.9 and likely postinfectious or postinflam matory in etiology. There is also mild tracer activity associated with suspected atelectasis, infiltr ate or scarring within the lingula. 5. Pulmonary emphysema. 6. Near aneurysmal dilatation of the abdominal aorta to a caliber of 2.9 cm. 6. Please refer to the separate report for additional findings regarding the non-PET portion of the e xam. Electronically signed by: Marah Alfaro MD (02/19/2021 12:48 PM) [id number]
== END ==
LOC: PETSC 10:13
PROVIDERS: ATTEND Internal Medicine Critical Care Medicine
DX: R91.1 Solitary pulmonary nodule (principal); J43.9 Emphysema, unspecified; I71.4 Abdominal aortic aneurysm, without rupture
CPT/HCPCS: 78815; A9552

== ENCOUNTER 2021-03-05 08:10 | Outpatient (CLI) | payer BC ==
[2021-03-05] VITALS (14 sets, daily range): BP systolic 112–160; BP diastolic 50–81
[~2021-03-05] VITALS: Ht 160 cm; Wt 65.9 kg
[2021-03-05 08:32] LABS: BASO # 0.1 x10^3/uL (0.0-0.2); BASO % 1 % (0-3); EOS # 0.3 x10^3/uL (0.0-0.7); EOS % 4 % (0-3); HEMATOCRIT 39.8 % (36.0-47.0); HEMOGLOBIN 13.3 g/dL (12.0-15.5); LYMPH # 3.1 x10^3/uL (1.0-4.8); LYMPH % 36 % (24-48); MEAN CORPUSCULAR HEMOGLOBIN 30 pg (25-35); MEAN CORPUSCULAR HGB CONC 33 g/dL (31-37); MEAN CORPUSCULAR VOLUME 90 fL (79-100); MONO # 0.6 x10^3/uL (0.0-1.1); MONO % 7 % (0-9); NEUT # 4.5 x10^3/uL (1.8-7.7); NEUT % 53 % (31-73); PLATELET COUNT 308 x10^3/uL (140-400); RED BLOOD COUNT 4.44 x10^6/uL (3.50-5.40); RED CELL DISTRIBUTION WIDTH 13.6 % (11.5-14.5); WHITE BLOOD COUNT 8.6 x10^3/uL (4.0-11.0)
[2021-03-05 08:41] LABS: PROTHROMBIN TIME PATIENT 12.5 SEC (11.7-14.0)
[2021-03-05] MEDS ORDERED: LIDOCAINE WITH 8.4% SOD BICARB 3 ML DISP.SYRIN. ONE (09:03)
[2021-03-05] MEDS ORDERED: MIDAZOLAM HCL/PF 2 MG/2 ML VIAL. ONE (09:35)
[2021-03-05] MEDS ORDERED: fentaNYL PF VIAL 100 MCG/2 ML VIAL ONE (09:35)
[2021-03-05] MEDS ORDERED: FLUMAZENIL 0.5 MG/5 ML VIAL. IV ONE (09:35)
[2021-03-05] MEDS ORDERED: LIDOCAINE WITH 8.4% SOD BICARB 3 ML DISP.SYRIN. IJ ONE (10:00)
[2021-03-05] MEDS ORDERED: fentaNYL PF VIAL 100 MCG/2 ML VIAL IV ONE (10:00)
--- NOTE | 2021-03-05 10:26 | PDOC ---
Exam Buying Intern Buying Intern Darrion Pre-Procedure Diagnosis Pre-Procedure Diagnosis Lung nodule, RUL Post-Procedure Diagnosis Post-Procedure Diagnosis Same Procedure Performed Procedure Performed CT GUIDED LUNG Bx Type of Anesthesia Type of Anesthesia Mod Sed Estimated Blood Loss EBL: 2 Specimens Specimans Core biopsy samples Drain/Tubes Drains/Tubes None Condition of Patient Condition of Patient Stable. ( Disposition Disposition CVOBS FOR RECOVERY AND POST BIOPSY XRAY MARV JACOBSON MD Mar 05, 2021 10:26
--- NOTE | 2021-03-05 12:48 | NUR ---
Discharge Note: MADONNA STILL Discharge instructions and discharge home medications reviewed with Patient and a copy given. All questions have been answered and understanding verbalized. Dressing remains dry and intact to R chest. Pt instructed to return to ED with any changes in respiratory status. The following instructions and handouts were given: lung biopsy, sedation Discontinued lines and drains: Peripheral IV intact. Patient discharged to Home or Self Care with Spouse via Wheelchair YOLY RN Addendum: 03/05/21 at 1250 by MARYELLEN NASH RN Amended: Links added.
--- NOTE | 2021-03-05 14:16 | RAD ---
XR CHEST 1V History: Reason: 2 hr delay s/p lung biopsy (12:15) / Spl. Instructions: / History: Comparison: January 31, [address] March 05, 2021 Findings: Increased patchy right midlung opacity related to postbiopsy hemorrhage. No pneumothorax. Hyperinflat ion with epididymis changes. Prior granulous disease within the chest. Normal heart size. No pleural effusion. Left upper lung nodule, unchanged. Impression: 1. Increased patchy right midlung opacity, related to postbiopsy hemorrhage. No pneumothorax. Electronically signed by: Rafael Kruger DO (03/05/2021 2:14 PM) [facility]
--- NOTE | 2021-03-05 15:57 | RAD ---
CT-guided biopsy, right upper lobe pulmonary nodule 03/05/2021 Consent: The procedure was explained in its entirety to the patient or the patients designated repres entative by a member of the treatment team, including a discussion of the risks, benefits and commonl y accepted alternatives to the procedure, as well as the expected consequences of no therapy whatsoev er. Discussion of the risks included, but was not limited to, those that are most frequent and thos e that are rare but possibly severe or life-threatening, as well as the possibility of unforeseen com plications. Discussion: A timeout procedure was performed. The right upper chest was prepped and draped using abe rile barrier technique. 1% lidocaine was administered for local anesthesia. Under intermittent CT mert dance a 17-gauge needle was advanced into the previously demonstrated right upper lobe nodule. Core b iopsy samples were obtained. A pneumothorax prevention device was deployed as a guiding needle was re moved. [place] were removed. Sterile dressings were applied. Repeat imaging was performed demonstrati ng mild perilesional hemorrhage without pneumothorax. No immediate complications were identified. The patient remained hemodynamically stable throughout. Sedation: The procedure was performed under conscious sedation including continuous cardiopulmonary m onitoring via a dedicated sedation nurse. Cvyp-tm-liwo sedation time: 16 minutes IMPRESSION: CT-guided biopsy, right upper lobe pulmonary nodule CT DOSING PQRS STATEMENT: One or more of the following individualized dose reduction techniques were utilized for this examinat ion: 1. Automated exposure control 2. Adjustment of the mA and/or kV according to patient size 3. Use of iterative reconstruction technique Electronically signed by: Sidney Maier MD (03/05/2021 3:55 PM) [id number]
== END 2021-03-05 12:50 | disposition home or self-care (01) ==
LOC: INTRAD 08:10
PROVIDERS: ATTEND Internal Medicine Critical Care Medicine
DX: R91.8 Other nonspecific abnormal finding of lung field (principal); I25.10 Atherosclerotic heart disease of native coronary artery without angina pectoris; J43.9 Emphysema, unspecified; I10 Essential (primary) hypertension; K21.9 Gastro-esophageal reflux disease without esophagitis; M81.0 Age-related osteoporosis without current pathological fracture; F32.9 Major depressive disorder, single episode, unspecified; Z90.710 Acquired absence of both cervix and uterus; Z98.890 Other specified postprocedural states; Z87.891 Personal history of nicotine dependence; Z79.82 Long term (current) use of aspirin; Z79.899 Other long term (current) drug therapy; Z82.49 Family history of ischemic heart disease and other diseases of the circulatory system; Z88.1 Allergy status to other antibiotic agents; Z88.8 Allergy status to other drugs, medicaments and biological substances; Z88.2 Allergy status to sulfonamides
CPT/HCPCS: 32408; 36415; 71045; 85025; 85610; 99152; J3010; J3490

== ENCOUNTER → 2021-05-03 | Outpatient (CLI) | payer BC ==
[2021-03-05 12:20] VITALS: BP 118/50
[~2021-05-03] MED LIST changes: -DOXY100C2 PO; +DOXY100C3 PO; -LISI2.5T PO; +LISI2.5T12 PO
--- NOTE | 2021-05-04 12:48 | CARD ---
MR#: [id number] Date of Study: 05/03/2021 Ordering Physician: TRUPTI TRIMBLE, Referring Physician: TRUPTI TRIMBLE, Tech: Lois Singh [facility] APPROVED REPORT EXAM: Two-dimensional and M-mode echocardiogram with Doppler and color Doppler. Other Information Quality : AverageHR: 71bpm Rhythm : Tachycardia INDICATION COPD Dyspnea 2D DIMENSIONS RVDd3.7 (2.9-3.5cm)Left Atrium(2D)4.2 (1.6-4.0cm) IVSd0.9 (0.7-1.1cm)Aortic Root(2D)3.3 (2.0-3.7cm) LVDd3.7 (3.9-5.9cm)LVOT Diameter2.0 (1.8-2.4cm) PWd0.9 (0.7-1.1cm)LVDs2.4 (2.5-4.0cm) FS (%) 34.5 %SV36.3 ml LVEF(%)64.5 (>50%) Aortic Valve AoV Peak Audi.142.9cm/sAoV VTI32.0cm AO Peak GR.8.2mmHgLVOT Peak Audi.115.2cm/s AO Mean GR.4mmHgAVA (VMAX)2.64cm2 Mitral Valve MV E Jornfpds79.5cm/sMV DECEL [id number] MV A Nplvizmu619.9cm/sE/A Ratio0.6 Pulmonary Valve PV Peak Ssjoqngm375.9cm/s Tricuspid Valve TR P. [id number]/sTR Peak Gr.23mmHg LEFT VENTRICLE The left ventricle is normal size. There is normal left ventricular wall thickness. The left ventricu lar systolic function is normal and the ejection fraction is within normal range. Estimated ejection fraction 60%. There is normal LV segmental wall motion. Tissue Doppler imaging reveals mild left vent ricular diastolic dysfunction. No left ventricle thrombus noted on this study. RIGHT VENTRICLE The right ventricle is normal size. There is normal right ventricular wall thickness. The right ventr icular systolic function is normal. ATRIA The left atrium size is normal. The right atrium size is normal. The interatrial septum is intact wit h no evidence for an atrial septal defect or patent foramen ovale as noted on 2-D or Doppler imaging. AORTIC VALVE The aortic valve is normal in structure and function. Doppler and Color Flow revealed no significant aortic regurgitation. There is no significant aortic valvular stenosis. MITRAL VALVE The mitral valve is normal in structure and function. There is no evidence of mitral valve prolapse. There is no mitral valve stenosis. Doppler and Color Flow revealed no mitral valve regurgitation note d. TRICUSPID VALVE The tricuspid valve is normal in structure and function. Doppler and Color Flow revealed trace tricus pid regurgitation. Estimated PAP 27 mmHg. There is no tricuspid valve stenosis. PULMONIC VALVE Doppler and Color Flow revealed no pulmonic valvular regurgitation. There is no pulmonic valvular abe nosis. GREAT VESSELS The aortic root is normal in size. The ascending aorta is normal in size. The IVC is normal in size a nd collapses >50% with inspiration. PERICARDIAL EFFUSION There is no evidence of significant pericardial effusion. Critical Notification Critical Value: No <Conclusion> The left ventricular systolic function is normal and the ejection fraction is within normal range. E stimated ejection fraction 60%. There is normal LV segmental wall motion. Signed by : Trupti Trimble, Electronically Approved : 05/04/2021 12:48:33
== END ==
LOC: ECHO 14:41
PROVIDERS: ATTEND Internal Medicine Cardiovascular Disease
DX: I10 Essential (primary) hypertension (principal)
CPT/HCPCS: 93306

== ENCOUNTER → 2021-06-11 | Outpatient (CLI) | payer BC ==
[2021-03-05 12:20] VITALS: BP 118/50
[~2021-06-11] MED LIST changes: +IOHEXOL 350 MG/ML 100 ML VIAL. IV ONE
[2021-06-11 14:01] LABS: ALBUMIN 3.9 g/dL (3.4-5.0); ALBUMIN/GLOBULIN RATIO 1.3 (1.0-1.7); CALCIUM 9.6 mg/dL (8.5-10.1); CREATININE 0.8 mg/dL (0.6-1.0); GFR 70.5; POTASSIUM 4.2 mmol/L (3.5-5.1); TOTAL BILIRUBIN 0.2 mg/dL (0.2-1.0)
--- NOTE | 2021-06-11 15:46 | RAD ---
EXAMINATION: CTA abdomen and pelvis with and without IV contrast. INDICATION:70 years, Female, dissection of unspecified site of aorta. TECHNIQUE: Axial CTA images of the abdomen and pelvis were obtained. MIP Coronal and sagittal as well as 3-D volume rendering reformats performed. COMPARISON: CTA dated 04/23/2019. PET/CT dated 02/19/2021. Exposure: One or more of the following individualized dose reduction techniques were utilized for thi s examination: 1. Automated exposure control 2. Adjustment of the mA and/or kV according to patient size 3. Use of iterative reconstruction technique. FINDINGS: VASCULAR: Moderate aortobiiliac atherosclerotic calcifications with infrarenal ectasia measures 2.5 cm in AP di mension and 2.8 cm in transverse dimension. No evidence of abdominal aortic dissection or intramural hematoma. No periaortic fat stranding to suggest leak. No evidence of luminal narrowing. Patent mesen teric arteries and dual bilateral renal arteries. However, atherosclerotic calcifications at the orig in of celiac trunk and SMA causing mild to moderate luminal stenosis. 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 Bilateral common femoral and visualized supe rficial and deep femoral arteries are patent with no stenosis or dilatation. NONVASCULAR: LOWER CHEST: Bibasilar subsegmental atelectasis versus scarring. ABDOMEN/PELVIS: Normal size and morphology of the liver with homogeneous enhancement. No suspicious focal hepatic les ion. Gallbladder, biliary ducts, spleen and pancreas are unremarkable. Nodular thickening of the left adrenal gland without discrete nodule. Normal symmetric enhancement of the kidneys with no hydroneph rosis or nephrolithiasis. Vascular calcification in the left kidney. No bowel dilatation. Colonic diverticulosis without diverticulitis, unchanged. Normal appendix. No pn eumoperitoneum or ascites. No lymphadenopathy in the abdomen or pelvis by size criteria. Unremarkable urinary bladder. Hysterectomy changes. No suspicious pelvic masses. MUSCULOSKELETAL: No acute osseous process. Mild compression fracture of the superior endplate of L1 vertebral body, un changed since January 2021. Stable mild compression fracture of the superior endplate of T11 vertebral sia dy since multiple prior exams. No acute process process. Diffuse osteopenia. IMPRESSION: 1. 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 2. Essentially unchanged infrarenal abdominal aortic ectasia measures 2.8 cm in maximum diameter. 3. Other chronic/incidental findings, as described above. Electronically signed by: Loulou Espinoza MD (06/11/2021 3:44 PM) [id number]
== END ==
LOC: CT 13:33
PROVIDERS: ATTEND Internal Medicine Cardiovascular Disease
DX: I77.811 Abdominal aortic ectasia (principal); I77.72 Dissection of iliac artery; K57.30 Diverticulosis of large intestine without perforation or abscess without bleeding; E27.8 Other specified disorders of adrenal gland; N28.89 Other specified disorders of kidney and ureter; I65.29 Occlusion and stenosis of unspecified carotid artery; M48.55XD Collapsed vertebra, not elsewhere classified, thoracolumbar region, subsequent encounter for fracture with routine healing; I25.10 Atherosclerotic heart disease of native coronary artery without angina pectoris
CPT/HCPCS: 36415; 74174; 80053; 80061; 83721; Q9967

== ENCOUNTER → 2021-08-20 | Outpatient (CLI) | payer BC ==
[2021-03-05 12:20] VITALS: BP 118/50
[~2021-08-20] MED LIST changes: -IOHEXOL 350 MG/ML 100 ML VIAL. IV ONE
--- NOTE | 2021-08-20 13:56 | RAD ---
EXAM: Dual modality PET-CT Scan DATE: 08/20/2021 RADIOPHARMACEUTICAL: 12 mCi F-18 fluorodeoxyglucose (FDG) IV. CLINICAL HISTORY: Pulmonary nodule COMPARISON: 02/19/2021 and 06/11/2021 TECHNIQUE: Approximately 45 minutes after tracer administration, routine, attenuation-corrected Posit rosanne Emission Tomography (PET) images of the body were obtained. Tomographic reconstructions are revie wed in coronal, transaxial and sagittal planes. Non-contrast CT imaging was performed for attenuatio n correction and localization purposes only. These images do not constitute a diagnostic-quality CT examination and were not used to diagnose disease independently of the PET images. The blood glucose level was 94 mg/dL at the time of FDG administration. *One or more of the following individualized dose reduction techniques were utilized for this examina tion: 1. Automated exposure control. 2. Adjustment of the mA and/or kV according to patient size. 3. Use of iterative reconstruction technique. FINDINGS: There has been interval decrease in the size and radiotracer activity associated with a pre viously demonstrated right upper lobe pulmonary nodule. There is a small residual nodule in this loca tion measuring 8 mm with surrounding groundglass measuring 1.7 cm. The maximum SUV in this location i s less than 2.0. This is also seen along the anterior chest wall and is likely due to radiation lynch es. The previously demonstrated radiotracer activity associated with masslike inflammation in the left franny ng base has resolved. There are several small pulmonary nodules, the majority of which are stable or decreased compared to the prior study and it does not demonstrate radiotracer activity above the bloo d pool. There is no radiotracer avid mediastinal or hilar lymphadenopathy. There is a focus of increa sed radiotracer activity within a sigmoid diverticulum, similar compared to the prior study and likel y inflammatory in etiology. No mass is seen in this location. There has been significant interval decrease in the size of a previously demonstrated right upper lob e pulmonary nodule. There is a solid nodular residual component measuring 8 mm, compared to a prior m easurement of 1.7 cm. There is surrounding groundglass opacity measuring 1.7 cm, likely due to treatm ent-related changes. There are a few small surrounding right upper lobe pulmonary nodules which are s lightly decreased compared to the prior exam. There are additional nodules which are stable within sia th lungs. The largest of these measures 4 mm within the right upper lobe. There is severe emphysema. There is no infiltrate, pleural effusion or pneumothorax. There is posteri or dependent and basilar atelectasis. There is bilateral pleural-parenchymal scarring. The heart is normal in size. There is calcified atherosclerotic plaque involving the aorta, aortic br anch vessels and coronary arteries. There has been no change in nonspecific mediastinal and hilar lym ph nodes. For reference purposes, there is a 1.5 cm precarinal lymph node. No hepatic lesion is seen. The gallbladder, pancreas and adrenal glands are unremarkable. There are s plenic granulomas. There is a punctate nonobstructing left renal stone. There is colonic diverticulos is. There is ectasia of the abdominal aorta to a caliber of 2.8 cm. There is aortobiiliac atheroscler osis. No mesenteric or retroperitoneal lymphadenopathy is seen. The bladder is unremarkable. The uter us absent. There is no adnexal lesion. There is cerebral volume loss. There is no mass effect or midline shift. There are cerebral white mat ter changes likely due to chronic small vessel disease. There is mild inferior left maxillary sinus m ucosal thickening. There is a small left maxillary sinus mucous retention cyst. There is a small amou nt of fluid the mastoid air cells. There is no neck lymphadenopathy. There are degenerative changes i nvolving the spine. There is no acute or suspicious osseous finding. IMPRESSION: 1. Decreased size and radiotracer activity associated with a previously demonstrated right upper lobe nodule. There is an 8 mm residual nodule surrounding groundglass in this location which demonstrates an SUV of less than 2.0. This is consistent with interval treatment response. 2. Multiple additional small pulmonary nodules measuring up to 4 mm, some of which are decreased comp ared to the prior study. These are too small to characterize with PET. 3. Resolution of previously demonstrated masslike consolidation within the left lung base, favoring a prior infectious or inflammatory etiology. 4. No evidence of mediastinal or hilar metastatic disease. 5. Focal increased radiotracer activity associated with a sigmoid diverticulum. This similar compared to the prior study and likely inflammatory etiology. Colonoscopy can be performed to confirm benigni ty if there is clinical concern. 6. Severe emphysema. Electronically signed by: Marah Alfaro MD (08/20/2021 1:54 PM) [id number]
== END ==
LOC: PETSC 10:08
PROVIDERS: ATTEND Radiology Radiation Oncology
DX: C34.11 Malignant neoplasm of upper lobe, right bronchus or lung (principal); R91.8 Other nonspecific abnormal finding of lung field; J43.9 Emphysema, unspecified; J98.11 Atelectasis; J98.4 Other disorders of lung; I70.0 Atherosclerosis of aorta; I25.10 Atherosclerotic heart disease of native coronary artery without angina pectoris; I77.811 Abdominal aortic ectasia; K57.30 Diverticulosis of large intestine without perforation or abscess without bleeding; N20.0 Calculus of kidney; I70.8 Atherosclerosis of other arteries; J34.1 Cyst and mucocele of nose and nasal sinus
CPT/HCPCS: 78815; A9552